=== PATIENT | male | born 1935 | race Caucasian/White ===

== ENCOUNTER → 2017-11-02 07:03 | Outpatient (CLI) | payer MEDICARE, BC, SELFPAY ==
[2017-10-15 09:03] VITALS: BP 134/70; BMI 30.5
--- NOTE | 2017-11-02 07:05 | ECHOD_ITS ---
Reason For Study: AFIB Procedure This was a 2D Doppler, Color Flow transthoracic echocardiogram. The exam was of fair technical quality due to body habitus. Exam performed in department. Left Ventricle Normal LV size. Moderate concentric left ventricular hypertrophy. Left ventricular systolic function is normal. The estimated ejection fraction is 65 %. Unable to assess diastolic dysfunction. No regional wall motion abnormalities noted. Right Ventricle Normal RV size. Normal systolic function. Atria The left atrium is mildly enlarged. The right atrium is mildly enlarged. No doppler evidence for ASD. Mitral Valve There is no mitral annular calcification. Normal mitral valve. Mild (1+) mitral valve insufficiency. Tricuspid Valve Normal tricuspid valve. Mild tricuspid valve insufficiency. Right ventricular systolic pressure estimated to be 33 mmHg. Aortic Valve Trisinus/trileaflet aortic valve. Normal aortic valve. Pulmonic Valve The pulmonic valve is not well visualized. Great Vessels Normal sized aortic root. Pericardium/Pleural No pericardial effusion. MMode/2D Measurements & Calculations LVIDd: 4.2 cm IVSd: 1.3 cm LVOT diam: 2.0 cm LVIDs: 2.9 cm LVPWd: 1.4 cm LVOT area: 3.1 cm2 FS: 31.7 % Ao root diam: 3.6 cm LAV(MOD-bp): 55.9 ml EDV(MOD-sp4): 85.9 ml LA dimension: 4.4 cm LAV(MOD-bp) Indexed: 27.3 ml/m2 ESV(MOD-sp4): 38.1 ml LAV(MOD-sp2): 51.3 ml EF(MOD-sp4): 55.6 % LAV(MOD-sp4): 55.1 ml EDV(MOD-sp2): 65.6 ml SV(MOD-sp4): 47.8 ml SV(MOD-sp2): 42.7 ml EF(MOD-sp2): 65.1 % LA A4 area: 20.4 cm2 RA A4 area: 19.5 cm2 Doppler Measurements & Calculations MV E max scarlett: 97.7 cm/sec Ao V2 max: 87.8 cm/sec LV V1 max: 84.2 cm/sec Ao max P.1 mmHg LV V1 max P.8 mmHg PRADIP(V,D): 2.9 cm2 TR max scarlett: 275.7 cm/sec TR max P.4 mmHg Interpretation Summary Left ventricular systolic function is normal. The estimated ejection fraction is 65 %. Moderate concentric left ventricular hypertrophy. The left atrium is mildly enlarged. The right atrium is mildly enlarged. Mild (1+) mitral valve insufficiency. Mild tricuspid valve insufficiency. Right ventricular systolic pressure estimated to be 33 mmHg. Unable to assess diastolic dysfunction. Ordering Physician: Lev Perez Referring Physician: STIVEN DAVIS Performed By: Rosaura Zhao RDCS, RVT
--- NOTE | 2017-11-02 14:04 | STRESSREP ---
Stress Test Report : 11/02/2017 Procedure: Pharmacologic stress nuclear imaging study Indications: Shortness of breath/dyspnea Consent: Per the patient Procedure: The patient underwent pharmacologic (Regadenoson) evaluation with a peak heart rate of 99 bpm (71% predicted maximal heart rate) with a peak blood pressure 160/82 mmHg. The baseline ECG demonstrated atrial fibrillation. The peak pharmacologic ECG demonstrated no obvious ECG changes. There were no obvious additional cardiac dysrhythmias pretest, during pharmacologic infusion, or recovery. There was no report of chest discomfort during pharmacologic infusion or recovery. The examination was discontinued secondary to completion of protocol. Impression: 1. Pharmacologic (Regadenoson) evaluation 2. Peak pharmacologic ECG with no obvious ECG changes 3. Nuclear images pending Myocardial perfusion imaging study: Technique: The patient was injected with 10.8 mCi of technetium 99m Cardiolite and subsequently rest SPECT Cardiolite nuclear imaging was obtained in the horizontal long, vertical long, and short axis views. The patient underwent pharmacologic (Regadenoson) evaluation with a peak heart rate of 99 bpm (71% predicted maximal heart rate) with a peak blood pressure 160/82 mmHg. The patient was injected with 34.0 mCi of technetium 99m Cardiolite and subsequently stress SPECT Cardiolite nuclear imaging was obtained in the horizontal long, vertical long, and short axis views. A gated Cardiolite study at peak stress was obtained. Interpretation: Rest and stress SPECT Cardiolite nuclear imaging status post realignment, normalization, and attenuation correction demonstrates the appearance of relative uniform tracer uptake and myocardial perfusion appearing within normal limits. There is end systolic thickening and brightening. The gated Cardiolite study demonstrates myocardial thickening and inward wall motion. The reported LVEF is 76%. Impression: 1. Rest and stress SPECT Cardiolite nuclear imaging demonstrating relative uniform tracer uptake and myocardial perfusion appearing within normal limits. 2. The gated Cardiolite study reports an LVEF of 76%. This note was generated with [employer] software. It may contain incorrect words, spelling, and punctuation that were not noted in checking the note before signing.
--- NOTE | 2017-11-02 14:14 | STRESSREP_ITS ---
Stress Test Report : 11/02/2017 Procedure: Pharmacologic stress nuclear imaging study Indications: Shortness of breath/dyspnea Consent: Per the patient Procedure: The patient underwent pharmacologic (Regadenoson) evaluation with a peak heart rate of 99 bpm (71% predicted maximal heart rate) with a peak blood pressure 160 /82 mmHg. The baseline ECG demonstrated atrial fibrillation. The peak pharmacologic ECG demonstrated no obvious ECG changes. There were no obvious additional cardiac dysrhythmias pretest, during pharmacologic infusion, or recovery. There was no report of chest discomfort during pharmacologic infusion or recovery. The examination was discontinued secondary to completion of protocol. Impression: 1. Pharmacologic (Regadenoson) evaluation 2. Peak pharmacologic ECG with no obvious ECG changes 3. Nuclear images pending Myocardial perfusion imaging study: Technique: The patient was injected with 10.8 mCi of technetium 99m Cardiolite and subsequently rest SPECT Cardiolite nuclear imaging was obtained in the horizontal long, vertical long, and short axis views. The patient underwent pharmacologic (Regadenoson) evaluation with a peak heart rate of 99 bpm (71% predicted maximal heart rate) with a peak blood pressure 160/82 mmHg. The patient was injected with 34.0 mCi of technetium 99m Cardiolite and subsequently stress SPECT Cardiolite nuclear imaging was obtained in the horizontal long, vertical long, and short axis views. A gated Cardiolite study at peak stress was obtained. Interpretation: Rest and stress SPECT Cardiolite nuclear imaging status post realignment, normalization, and attenuation correction demonstrates the appearance of relative uniform tracer uptake and myocardial perfusion appearing within normal limits. There is end systolic thickening and brightening. The gated Cardiolite study demonstrates myocardial thickening and inward wall motion. The reported LVEF is 76%. Impression: 1. Rest and stress SPECT Cardiolite nuclear imaging demonstrating relative uniform tracer uptake and myocardial perfusion appearing within normal limits. 2. The gated Cardiolite study reports an LVEF of 76%. This note was generated with [employer] software. It may contain incorrect words, spelling, and punctuation that were not noted in checking the note before signing.
== END ==
PROVIDERS: Family Provider Family Medicine; PCP Family Medicine; Visit Provider Internal Medicine Cardiovascular Disease
DX: I48.1 Persistent atrial fibrillation (principal); R06.02 Shortness of breath; R42 Dizziness and giddiness
CPT/HCPCS: 78452; 93017; 93306; A9500; A4216; J2785

== ENCOUNTER 2018-06-12 09:18 | Emergency (ER) | payer MEDICARE, BC, SELFPAY ==
[2018-06-12 09:19] VITALS: BP 144/95; PULSE 102; RESP 18; TEMP 36.2; O2SAT 99; BMI 28.8
--- NOTE | 2018-06-12 09:30 | CT_ITS ---
STUDY: CT ABDOMEN AND PELVIS WITH CONTRAST REASON FOR EXAM: Male, 82 years old. Diffuse abdominal pain with history of bladder cancer. RADIATION DOSAGE (If Supplied By Facility): CTDIvol = ( 18.92 ) mGy, DLP = ( 2199.38 ) mGycm TECHNIQUE: Transaxial images were obtained from the dome of the diaphragm to the symphysis pubis without oral contrast. 100 ml of Isovue 300 contrast was administered. Sagittal and coronal images were reconstructed. Individualized dose optimization techniques were used for this CT. COMPARISON: None. FINDINGS: The visualized lung bases are unremarkable. The visualized portions of the heart are within normal limits. Normal liver. Normal gallbladder and extrahepatic biliary system. Normal spleen. Normal pancreas. Near the distal splenic vein in the confluence of the main portal vein is a hypodense clot extending inferiorly through the inferior mesenteric vein toward the right quadrant as seen on axial series 2 image 36 consistent with acute inferior mesenteric vein thrombus. There is associated right quadrant areas of small bowel dilatation and wall thickening concerning for ischemia. There is mild inflammatory stranding surrounding the inferior mesenteric vein. There is a right adrenal enhancing lesion with Hounsfield units of 72 with no significant change from before September 2016 exam. Chronic appearing bilateral renal stranding is present. Right simple appearing interpolar renal cyst is noted measuring 1.6 cm with additional small left anterior exophytic cyst subcentimeter in size. Facet Normal visualized stomach. Right quadrant small bowel thickening and surrounding inflammation as described above. Normal colon. The appendix is visualized and appears normal. Normal abdominal aorta. Normal inferior vena cava. Normal retroperitoneum. Normal urinary bladder. There is enlargement of the prostate gland. Normal abdominal wall. There are diffuse degenerative changes of the visualized lumbar spine. CT/Abdomen/Pelvis W IV Cont ONLY IMPRESSION: 1. Findings consistent with diffuse thrombus within the inferior mesenteric vein and associated wall thickening and inflammation of the right quadrant bowel consistent with sequela of ischemia. 2. Stable appearance of ill-defined right adrenal lesion compared to 16 September 2016. Further characterization may be obtained with MRI in and out of phase imaging. Underlying adrenal lesion cannot be excluded. Electronically Signed: Renzo Franco DO at 11:09 EDT , Service support ,
--- NOTE | 2018-06-12 09:32 | ED.VISSUMM ---
- ER Visit Summary Date of Service: 06/12/18 Chief Complaint: Abdominal pain History of Present Illness: The patient is a 82 M history of A. fib and BPH. Patient is never had any abdominal surgery. He once had since [facility] for bladder cancer. States last week he has had abdominal pain it has gotten worse in the last 24-48 hours. Having nausea and vomiting today. He denies any diarrhea or melena. He denies any constipation. He denies any dysuria. He denies any abdominal trauma. States he had a low-grade fever of like 99.8 over the last several days. Denies any chest pain or cough. Physical Examination: Elderly male no acute distress. Vital signs are stable afebrile. He does not look septic or toxic. He does not look severely dehydrated. He is accompanied by his . H EENT exam is unremarkable. Neck nontender. Lungs clear to auscultation bilaterally. Heart irregularly irregular rate about 102 no murmur. Abdomen appears distended but he and his state that this is normal abdomen. He is diffusely tender. There are not peritoneal signs. I do not see any obvious hernias or masses. I do not feel any pulsatile mass. He has bowel sounds but they seem to be diminished. Moving all 4 extremities. Calves nontender. Neurologically is awake and alert with no focal motor deficits. Test Results: CBC normal with a white count of 10. Hemoglobin 15. Electrolytes unremarkable. Gap at 9. Creatinine 1. Blood sugar 253. Liver enzymes normal. Lipase normal. UA normal except for glucose. Lactic acid normal 1.6. EKG A. fib with RVR rate of 116. Patient CT abdomen and pelvis with IV contrast only shows mesenteric ischemia with diffuse thrombus in the mesenteric vein. Wall thickening and inflammation of the right lower quadrant small bowel. This is involving the inferior mesenteric vein. The appendix was seen and was normal. Emergency Department Course and Treatment: Abdominal pain. Will be treated with a liter of normal saline and IV Zofran. CT of the abdomen and pelvis will be obtained with IV contrast only and screening labs. Treatment Plan: I spoke to our general surgeon on-call. He reviewed the CAT scan he and I discussed the patient's care. Patient be transferred and I spoke to he and his and they prefer to [facility]. I spoke to the transfer line I spoke to both the general surgeon on-call Dr. Brar and Also the Hospitalist Dr. Walls. Hospitalist and I discussed anticoagulation and patient will be started on heparin bolus and drip. 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 fib This note was generated with [employer] dictation software. It may contain incorrect words, spelling, and punctuation that were not noted in review of the chart prior to signing ED Disposition - Plan for ED Patient: Chief Complaint: Abd Pain Referrals: Noam Monroy MD [Primary Care Provider] -
--- NOTE | 2018-06-12 09:35 | ED.DCSUM_ITS ---
- ER Visit Summary Date of Service: 06/12/18 Chief Complaint: Abdominal pain History of Present Illness: The patient is a 82 M history of A. fib and BPH. Patient is never had any abdominal surgery. He once had since [facility] for bladder cancer. States last week he has had abdominal pain it has gotten worse in the last 24-48 hours. Having nausea and vomiting today. He denies any diarrhea or melena. He denies any constipation. He denies any dysuria. He denies any abdominal trauma. States he had a low-grade fever of like 99.8 over the last several days. Denies any chest pain or cough. Physical Examination: Elderly male no acute distress. Vital signs are stable afebrile. He does not look septic or toxic. He does not look severely dehydrated. He is accompanied by his . H EENT exam is unremarkable. Neck nontender. Lungs clear to auscultation bilaterally. Heart irregularly irregular rate about 102 no murmur. Abdomen appears distended but he and his state that this is normal abdomen. He is diffusely tender. There are not peritoneal signs. I do not see any obvious hernias or masses. I do not feel any pulsatile mass. He has bowel sounds but they seem to be diminished. Moving all 4 extremities. Calves nontender. Neurologically is awake and alert with no focal motor deficits. Test Results: CBC normal with a white count of 10. Hemoglobin 15. Electrolytes unremarkable. Gap at 9. Creatinine 1. Blood sugar 253. Liver enzymes normal. Lipase normal. UA normal except for glucose. Lactic acid normal 1.6. EKG A. fib with RVR rate of 116. Patient CT abdomen and pelvis with IV contrast only shows mesenteric ischemia with diffuse thrombus in the mesenteric vein. Wall thickening and inflammation of the right lower quadrant small bowel. This is involving the inferior mesenteric vein. The appendix was seen and was normal. Emergency Department Course and Treatment: Abdominal pain. Will be treated with a liter of normal saline and IV Zofran. CT of the abdomen and pelvis will be obtained with IV contrast only and screening labs. Treatment Plan: I spoke to our general surgeon on-call. He reviewed the CAT scan he and I discussed the patient's care. Patient be transferred and I spoke to he and his and they prefer to [facility]. I spoke to the transfer line I spoke to both the general surgeon on-call Dr. Brar and Also the spitalist Dr. Walls. Hospitalist and I discussed anticoagulation and patient will be started on heparin bolus and drip. 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 fib This note was generated with [employer] dictation software. It may contain incorrect words, spelling, and punctuation that were not noted in review of the chart prior to signing ED Disposition - Plan for ED Patient: Chief Complaint: Abd Pain Referrals: Noam Monroy MD [Primary Care Provider] -
[2018-06-12] MEDS: 0.9% Normal Saline 1,000 ML 1000 ML IV (09:55)
[2018-06-12] MEDS: Ondansetron 4 MG/2 ML Vial IV (09:55)
[2018-06-12 10:00] LABS: Bacteria 0 SEEN /hpf (None Seen); Mucous, Urine 0 SEEN /hpf (<or=2+); Red Blood Cells-Urine 0 SEEN /hpf (0-5); Squamous Epithelial Cells - UA 0 SEEN /hpf (0-5); White Blood Cells 0 SEEN /hpf (0-5)
[2018-06-12 10:04] LABS: Absolute Lymphocyte Count 1.15 X10^3/ul (0.83-4.51); Absolute Neutrophil Count 9.3 X10^3/uL (2.0-7.7); Basophil# 0.01 X10^3/uL; Basophil% 0.1 % (0-1); Eosinophil# 0.01 X10^3/uL; Eosinophils% 0.1 % (0-5); Hematocrit 44.2 % (40-54); Hemoglobin 15.2 g/dl (13.0-16.5); Lymphocyte # 1.15 X10^3/ul (4.0); Lymphocyte % 10.8 % (19-41); Mean Corp Hgb Conc 34.4 g/gl (32-36); Mean Corpuscular Hgb 31.1 pg (27.0-32.0); Mean Corpuscular Volume 90.4 fL (80-94); Mean Platelet Vol. 10.7 fl (6.2-12.0); Monocyte% 1.9 % (0-10); Platelet Count 199 K/mm3 (150-450); RBC Distribution Width CV 12.5 % (11.6-14.6); RBC Distribution Width SD 41.2 fl (35.1-43.9); Red Blood Count 4.89 M/mm3 (4.6-6.2); White Blood Count 10.7 K/mm3 (4.4-11.0)
[2018-06-12 10:05] LABS: POSITIVE COUNT NO; POSITIVE DIFFERENTIAL NO; POSITIVE MORPHOLOGY NO
[2018-06-12 10:07] LABS: Color, Urine Yellow (Yellow); Glucose, Dipstick 1000 mg/dl (Normal); Leukocyte Esterase-Dipstick Negative /ul (Negative); Nitrite-Dipstick Negative (Negative); Occult Blood-Urine 50 /ul (Negative); Protein-Dipstick 100 mg/dl (Negative); Urine Bilirubin Dipstick Negative (Negative); Urine Clarity Clear (Clear); Urine Urobilinogen Normal (Normal)
[2018-06-12 10:08] LABS: Ketone-Dipstick 150 mg/dl (Negative)
[2018-06-12 10:09] VITALS: BP 137/86; PULSE 98; RESP 15; O2SAT 95
[2018-06-12 10:17] LABS: AST(SGOT) 22 U/L (15-37); Alanine Aminotransfer ALT/SGPT 48 U/L (16-61); Albumin, Serum 3.3 g/dL (3.2-5.0); Alkaline Phosphatase 73 U/L (45-117); Anion Gap 9 (5-15); BUN 18 mg/dL (7-18); BUN/Creat Ratio 16.5 RATIO (10-20); Bilirubin, Direct 0.27 mg/dL (0.00-0.30); Calcium,Total 9.1 mg/dL (8.5-10.1); Chloride 101 mmol/L (98-107); Creatinine, Serum 1.09 mg/dL (0.70-1.30); EST Glomerular Filtration Rate 69 mL/min (>60); Est Glom Filt Rate - Afr Amer 83 mL/min (>60); Estimated Creatinine Clearance 50.55 ml/min; Globulin 4.6 g/dL (2.2-4.2); Glucose 253 mg/dL (74-106); Lipase 71 U/L (73-393); Potassium 4.3 mmol/L (3.5-5.1); Protein, Total 7.9 g/dL (6.4-8.2); Sodium Level 135 mmol/L (136-145)
--- NOTE | 2018-06-12 10:19 | ED.RN ---
REPRODUCEABLE PAIN TO RIGHT ID ABD WITH PALPATION.
[2018-06-12 10:27] LABS: Lactic Acid 1.6 mmol/L (0.4-2.0)
[2018-06-12] MEDS: Morphine 4 MG/ML Syringe IV (11:03)
[2018-06-12 11:38] VITALS: BP 153/90; PULSE 117; RESP 22; O2SAT 96
--- NOTE | 2018-06-12 12:03 | EKG12_ITS ---
Test Reason : ABDOMINAL PAIN Blood Pressure : / mmHG Vent. Rate : 116 BPM Atrial Rate : 133 BPM P-R Int : 000 ms QRS Dur : 086 ms QT Int : 334 ms P-R-T Axes : 000 000 -40 degrees QTc Int : 464 ms Atrial fibrillation with rapid ventricular response Nonspecific ST and T wave abnormality Abnormal ECG Confirmed by CL AGUILAR, KAMRYN ([id number]), international editorial producer JORDY PETERSON ([id number]) on 06/14/2018 2:44:46 PM Referred By: VINCENT Confirmed By:KAMRYN SMALLWOOD MD
[2018-06-12 12:05] LABS: Prothrombin Time (Protime)PT. 13.6 SECONDS (11.7-14.9)
[2018-06-12] MEDS: Heparin Injection (Vial) 5,000 UNIT/ML VIAL 6000 UNIT IV (12:26)
[2018-06-12] MEDS: HEPARIN/D5w 25,000 UNITS 25,000 UNITS/250 ML IV.SOLN. 12 UNITS IV (12:27)
[2018-06-12 12:30] VITALS: BP 140/81; PULSE 101; RESP 20; O2SAT 93
[2018-06-12 13:15] VITALS: BP 150/96; PULSE 104; RESP 19; O2SAT 94
== END 2018-06-12 13:18 | disposition short-term general hospital (02) ==
LOC: ED 10:09
PROVIDERS: Emergency Provider Emergency Medicine; Family Provider Family Medicine; PCP Family Medicine
DX: R10.9 Unspecified abdominal pain (principal); R11.2 Nausea with vomiting, unspecified; I81 Portal vein thrombosis; I48.2 Chronic atrial fibrillation; I99.8 Other disorder of circulatory system; N40.0 Benign prostatic hyperplasia without lower urinary tract symptoms; Z85.51 Personal history of malignant neoplasm of bladder
CPT/HCPCS: 74177; 80048; 80076; 81001; 83605; 83690; 85025; 85610; 85730; 93005; 99284; J7030; Q9967; A4216; J2405

== ENCOUNTER → 2018-06-20 07:10 | Outpatient (CLI) | payer MEDICARE, BC, SELFPAY ==
[2018-06-20 08:31] LABS: International Normalized Ratio 1.4; Prothrombin Time (Protime)PT. 17.5 SECONDS (11.7-14.9)
== END ==
PROVIDERS: Family Provider Family Medicine; PCP Family Medicine
DX: I48.91 Unspecified atrial fibrillation (principal); I81 Portal vein thrombosis
CPT/HCPCS: 36415; 85610

== ENCOUNTER → 2018-06-23 14:09 | Outpatient (CLI) | payer MEDICARE, BC, SELFPAY ==
[2018-06-23 15:39] LABS: Absolute Lymphocyte Count 1.28 X10^3/ul (0.83-4.51); Absolute Neutrophil Count 10.3 X10^3/uL (2.0-7.7); Basophil# 0.02 X10^3/uL; Basophil% 0.2 % (0-1); Eosinophil# 0.05 X10^3/uL; Eosinophils% 0.4 % (0-5); Hematocrit 36.4 % (40-54); Hemoglobin 12.2 g/dl (13.0-16.5); Lymphocyte # 1.28 X10^3/ul (4.0); Mean Corp Hgb Conc 33.5 g/gl (32-36); Mean Corpuscular Hgb 31.1 pg (27.0-32.0); Mean Corpuscular Volume 92.9 fL (80-94); Mean Platelet Vol. 11.7 fl (6.2-12.0); Monocyte# 1.08 X10^3/uL; Monocyte% 8.5 % (0-10); Neutrophil # 10.29 X10^3/uL (2.7-7.7); Neutrophil % 80.7 % (47-70); Platelet Count 287 K/mm3 (150-450); RBC Distribution Width CV 13.2 % (11.6-14.6); RBC Distribution Width SD 43.7 fl (35.1-43.9); Red Blood Count 3.92 M/mm3 (4.6-6.2); White Blood Count 12.8 K/mm3 (4.4-11.0)
[2018-06-23 15:41] LABS: POSITIVE COUNT NO; POSITIVE DIFFERENTIAL NO; POSITIVE MORPHOLOGY NO
[2018-06-23 16:12] LABS: Vitamin B12 426 pg/mL (211-911); Vitamin D,25 Hydroxy 14.8 ng/mL (29.95-100.01)
[2018-06-23 16:16] LABS: ALB/GLOB Ratio 0.6 RATIO (0.9-2.4); AST(SGOT) 24 U/L (15-37); Alanine Aminotransfer ALT/SGPT 51 U/L (16-61); Albumin, Serum 2.7 g/dL (3.2-5.0); Alkaline Phosphatase 79 U/L (45-117); Anion Gap 8 (5-15); BUN 15 mg/dL (7-18); BUN/Creat Ratio 17.6 RATIO (10-20); Calcium,Total 8.7 mg/dL (8.5-10.1); Chloride 102 mmol/L (98-107); Cholesterol 178 mg/dL (200); Creatinine, Serum 0.85 mg/dL (0.70-1.30); EST Glomerular Filtration Rate 92 mL/min (>60); Est Glom Filt Rate - Afr Amer 111 mL/min (>60); Globulin 4.2 g/dL (2.2-4.2); Glucose 137 mg/dL (74-106); High Density Lipoprotein 34 mg/dL; Potassium 3.9 mmol/L (3.5-5.1); Protein, Total 6.9 g/dL (6.4-8.2); Sodium Level 136 mmol/L (136-145); Triglycerides 153 mg/dL; Very Low Density Lipoprotein 31 mg/dL (5-40)
[2018-06-23 16:18] LABS: Erythrocyte Sedimentation Rate 71 mm/hr (0-20)
== END ==
PROVIDERS: Family Provider Family Medicine; PCP Family Medicine; Visit Provider Family Medicine
DX: R73.01 Impaired fasting glucose (principal); K55.059 Acute (reversible) ischemia of intestine, part and extent unspecified; R41.3 Other amnesia; E11.9 Type 2 diabetes mellitus without complications
CPT/HCPCS: 36415; 80053; 80061; 82306; 82607; 84443; 85025; 85652

== ENCOUNTER → 2018-06-27 12:45 | Outpatient (CLI) | payer MEDICARE, BC, SELFPAY ==
[2018-06-27 13:45] LABS: International Normalized Ratio 2.1; Prothrombin Time (Protime)PT. 23.2 SECONDS (11.7-14.9)
== END ==
PROVIDERS: Family Provider Family Medicine; PCP Family Medicine; Referring Provider Internal Medicine Cardiovascular Disease; Visit Provider Internal Medicine Cardiovascular Disease
DX: I48.1 Persistent atrial fibrillation (principal); Z79.01 Long term (current) use of anticoagulants
CPT/HCPCS: 36415; 85610

== ENCOUNTER 2018-07-04 13:32 | Outpatient (RCR) | payer MEDICARE, BC, SELFPAY ==
[2018-07-04 17:36] LABS: International Normalized Ratio 2.6; Prothrombin Time (Protime)PT. 27.9 SECONDS (11.7-14.9)
== END 2018-07-04 15:00 | disposition home or self-care (01) ==
LOC: LAB 13:32
PROVIDERS: Family Provider Family Medicine; PCP Family Medicine; Referring Provider Internal Medicine Cardiovascular Disease; Visit Provider Internal Medicine Cardiovascular Disease
DX: I48.1 Persistent atrial fibrillation (principal); Z79.01 Long term (current) use of anticoagulants
CPT/HCPCS: 36415; 85610

== ENCOUNTER → 2018-07-11 18:54 | Outpatient (CLI) | payer MEDICARE, BC, SELFPAY ==
--- NOTE | 2018-07-11 | FLU_PTH ---
PATIENT: SORAIDA PERES LOC: [facility] U#:[id number] AGE/SX: 89/M ROOM: RE07/11/[address]: Dr. Aram Haro MD : 1935 BED: DIS: SPEC #: [id number] RECD: 07/11/18 09:23 STATUS: JOSÉ MIGUEL MALINA #: [id number] ALICE: 07/11/18 00:[address]: Aram Haro DEPT: CYTOLOGY RECD BY: Amanda Winslow ENTERED: 07/13/18 09:43 SP TYPE: Fluid OTHR DR: Dr. Puneet Monroy MD Tissues: Urine Procedures: Pap Stain (control) Special Stain Group II Surgery Specimen Level IV Cytospin Fluid HEADER OPERATION: Not noted PRE-OP DIAGNOSIS: Bladder cancer TISSUE SUBMITTED: Urine for cytology DIAGNOSIS CYTOLOGY Urine for cytology (cytospin): Negative for malignant cells. AM:veda 07/14/18 CYTOLOGY STUDY Slides are reviewed. CYTOLOGY GROSS Received is 30 ml of hazy yellow fluid labeled with the patient's name and and designated per the requisition as urine. Submitted for cytology. /MARIA:ricky 07/13/18 TC:5 CPT: 89852
[2018-07-11 18:56] LABS: Cytology, Body Fluid / CSF SEE PATHOLOGY REPORT
== END ==
PROVIDERS: Family Provider Family Medicine; PCP Family Medicine; Visit Provider Urology
DX: C67.9 Malignant neoplasm of bladder, unspecified (principal)
CPT/HCPCS: 88108; 88305; 88313

== ENCOUNTER → 2018-07-13 14:51 | Outpatient (CLI) | payer MEDICARE, BC, SELFPAY ==
[2018-07-13 17:29] LABS: Absolute Lymphocyte Count 1.67 X10^3/ul (0.83-4.51); Absolute Neutrophil Count 4.1 X10^3/uL (2.0-7.7); Basophil# 0.03 X10^3/uL; Basophil% 0.5 % (0-1); Eosinophil# 0.17 X10^3/uL; Eosinophils% 2.6 % (0-5); Hematocrit 39.7 % (40-54); Hemoglobin 13.2 g/dl (13.0-16.5); Lymphocyte # 1.67 X10^3/ul (4.0); Lymphocyte % 25.1 % (19-41); Mean Corp Hgb Conc 33.2 g/gl (32-36); Mean Corpuscular Hgb 30.8 pg (27.0-32.0); Mean Corpuscular Volume 92.5 fL (80-94); Mean Platelet Vol. 11.2 fl (6.2-12.0); Monocyte# 0.66 X10^3/uL; Monocyte% 9.9 % (0-10); Neutrophil # 4.08 X10^3/uL (2.7-7.7); Neutrophil % 61.3 % (47-70); Platelet Count 207 K/mm3 (150-450); RBC Distribution Width CV 13.6 % (11.6-14.6); Red Blood Count 4.29 M/mm3 (4.6-6.2); White Blood Count 6.7 K/mm3 (4.4-11.0)
[2018-07-13 17:31] LABS: POSITIVE COUNT NO; POSITIVE DIFFERENTIAL NO; POSITIVE MORPHOLOGY NO
[2018-07-13 17:45] LABS: ALB/GLOB Ratio 0.9 RATIO (0.9-2.4); AST(SGOT) 26 U/L (15-37); Alanine Aminotransfer ALT/SGPT 56 U/L (16-61); Albumin, Serum 3.4 g/dL (3.2-5.0); Alkaline Phosphatase 72 U/L (45-117); Anion Gap 8 (5-15); BUN 14 mg/dL (7-18); BUN/Creat Ratio 15.5 RATIO (10-20); Calcium,Total 8.9 mg/dL (8.5-10.1); Chloride 105 mmol/L (98-107); EST Glomerular Filtration Rate 85 mL/min (>60); Est Glom Filt Rate - Afr Amer 103 mL/min (>60); Globulin 3.8 g/dL (2.2-4.2); Glucose 64 mg/dL (74-106); Potassium 4.1 mmol/L (3.5-5.1); Protein, Total 7.2 g/dL (6.4-8.2); Sodium Level 140 mmol/L (136-145); Thyroid Stim Hormone (TSH) 2.05 uIU/mL (0.358-3.74); Vitamin D,25 Hydroxy 21.3 ng/mL (29.95-100.01)
== END ==
PROVIDERS: Visit Provider Family Medicine Geriatric Medicine
DX: E11.9 Type 2 diabetes mellitus without complications (principal); E55.9 Vitamin D deficiency, unspecified
CPT/HCPCS: 36415; 80053; 82306; 84443; 85025

== ENCOUNTER 2018-08-08 10:09 | Outpatient (RCR) | payer MEDICARE, BC, SELFPAY ==
[2018-07-18 10:00] LABS: International Normalized Ratio 1.7; Prothrombin Time (Protime)PT. 20.3 SECONDS (11.7-14.9)
[2018-07-25 11:26] LABS: International Normalized Ratio 1.8
[2018-08-08 11:27] LABS: International Normalized Ratio 2.2; Prothrombin Time (Protime)PT. 24.3 SECONDS (11.7-14.9)
== END 2018-08-12 09:35 | disposition home or self-care (01) ==
LOC: LAB 10:09
PROVIDERS: Family Provider Family Medicine; PCP Family Medicine; Referring Provider Internal Medicine Cardiovascular Disease; Visit Provider Internal Medicine Cardiovascular Disease
DX: I48.1 Persistent atrial fibrillation (principal); Z79.01 Long term (current) use of anticoagulants
CPT/HCPCS: 36415; 85610

== ENCOUNTER 2018-08-22 10:31 | Outpatient (RCR) | payer MEDICARE, BC, SELFPAY ==
[2018-08-15 09:36] VITALS: BMI 30.5
[2018-08-22 11:45] LABS: International Normalized Ratio 1.8; Prothrombin Time (Protime)PT. 20.8 SECONDS (11.7-14.9)
== END 2018-08-22 11:00 | disposition home or self-care (01) ==
LOC: LAB 10:31
PROVIDERS: Family Provider Family Medicine Geriatric Medicine; PCP Family Medicine Geriatric Medicine; Referring Provider Internal Medicine Cardiovascular Disease; Visit Provider Internal Medicine Cardiovascular Disease
DX: I48.1 Persistent atrial fibrillation (principal); Z79.01 Long term (current) use of anticoagulants
CPT/HCPCS: 36415; 85610

== ENCOUNTER 2018-10-06 10:17 | Outpatient (RCR) | payer MEDICARE, BC, SELFPAY ==
[2018-08-15 09:36] VITALS: BMI 30.5
[2018-09-15 11:07] LABS: International Normalized Ratio 2.1; Prothrombin Time (Protime)PT. 23.8 SECONDS (11.7-14.9)
[2018-10-06 11:46] LABS: International Normalized Ratio 2.3; Prothrombin Time (Protime)PT. 25.8 SECONDS (11.7-14.9)
== END 2018-10-06 11:00 | disposition home or self-care (01) ==
LOC: LAB 10:17
PROVIDERS: Family Provider Family Medicine Geriatric Medicine; PCP Family Medicine Geriatric Medicine; Referring Provider Internal Medicine Cardiovascular Disease; Visit Provider Internal Medicine Cardiovascular Disease
DX: I48.1 Persistent atrial fibrillation (principal); Z79.01 Long term (current) use of anticoagulants
CPT/HCPCS: 36415; 85610

== ENCOUNTER → 2018-10-10 15:27 | Outpatient (CLI) | payer MEDICARE, BC, SELFPAY ==
[2018-08-15 09:36] VITALS: BMI 30.5
== END ==
PROVIDERS: Family Provider Family Medicine Geriatric Medicine; PCP Family Medicine Geriatric Medicine; Referring Provider Otolaryngology; Visit Provider Otolaryngology
DX: H92.10 Otorrhea, unspecified ear (principal)
CPT/HCPCS: 87070; 87075; 87077; 87186; 87205

== ENCOUNTER 2018-11-17 09:58 | Outpatient (RCR) | payer MEDICARE, BC, SELFPAY ==
[2018-08-15 09:36] VITALS: BMI 30.5
[2018-10-26 12:59] VITALS: BMI 29.6
[2018-11-17 10:38] LABS: International Normalized Ratio 2.4; Prothrombin Time (Protime)PT. 26.5 SECONDS (11.7-14.9)
== END 2018-11-17 10:58 | disposition home or self-care (01) ==
LOC: LAB 09:58
PROVIDERS: Family Provider Family Medicine Geriatric Medicine; PCP Family Medicine Geriatric Medicine; Referring Provider Internal Medicine Cardiovascular Disease; Visit Provider Internal Medicine Cardiovascular Disease
DX: I48.1 Persistent atrial fibrillation (principal); Z79.01 Long term (current) use of anticoagulants
CPT/HCPCS: 36415; 85610

== ENCOUNTER 2018-12-20 09:07 | Outpatient (RCR) | payer MEDICARE, BC, SELFPAY ==
[2018-10-26 12:59] VITALS: BMI 29.6
[2018-12-20 10:04] LABS: International Normalized Ratio 2.2; Prothrombin Time (Protime)PT. 24.6 SECONDS (11.7-14.9)
== END 2019-01-10 16:00 | disposition home or self-care (01) ==
LOC: LAB 09:07
PROVIDERS: Referring Provider Internal Medicine Cardiovascular Disease; Visit Provider Internal Medicine Cardiovascular Disease
DX: I48.1 Persistent atrial fibrillation (principal); Z79.01 Long term (current) use of anticoagulants
CPT/HCPCS: 36415; 85610

== ENCOUNTER → 2019-01-09 17:28 | Outpatient (CLI) | payer MEDICARE, BC, SELFPAY ==
[2018-10-26 12:59] VITALS: BMI 29.6
--- NOTE | 2019-01-09 | CYSPIN_PTH ---
PATIENT: SORAIDA PERES LOC: [facility] U#:[id number] AGE/SX: 89/M ROOM: RE01/09/[address]: Dr. Aram Haro MD : 1935 BED: DIS: SPEC #: [id number] RECD: 01/09/19 12:06 STATUS: JOSÉ MIGUEL MALINA #: [id number] ALICE: 01/09/19 00:[address]: Aram Haro DEPT: CYTOLOGY RECD BY: Senthil Aquino ENTERED: 01/10/19 12:06 SP TYPE: CYSPIN FL OTHR DR: Dr. Nataliia Lim MD Tissues: Urine Procedures: Pap Stain (control) Special Stain Group II Cytospin Fluid HEADER OPERATION: Not noted PRE-OP DIAGNOSIS: Bladder CA C67.2 TISSUE SUBMITTED: Urine for cytology DIAGNOSIS CYTOLOGY Urine for cytology (cytospin): Rare atypical urothelial cells noted. SJ:veda 01/11/19 COMMENT Clinical correlation and appropriate follow up are necessary. Please make reference to previous specimen ([id number]) bladder tumor, TUR with diagnosis of papillary urothelial carcinoma and cytology specimens ([id number]) urine for cytology with diagnosis of malignant cells present derived from urothelial carcinoma and ([id number]) urine for cytology with diagnosis of a few atypical urothelial cells noted and ([id number]) urine for cytology with diagnosis of negative for malignant cells. CYTOLOGY STUDY Slides are reviewed. CYTOLOGY GROSS Received is 30 ml of clear yellow fluid labeled with the patient's name and and designated per the requisition as urine. Submitted for cytology preparation. / 01/10/19 TC:5 CPT: 68280
[2019-01-09 17:29] LABS: Cytology, Body Fluid / CSF SEE PATHOLOGY REPORT
== END ==
PROVIDERS: Family Provider Family Medicine; PCP Family Medicine; Referring Provider Urology; Visit Provider Urology
DX: C67.2 Malignant neoplasm of lateral wall of bladder (principal)
CPT/HCPCS: 88108; 88313

== ENCOUNTER 2019-01-24 09:45 | Outpatient (RCR) | payer MEDICARE, BC, SELFPAY ==
[2018-10-26 12:59] VITALS: BMI 29.6
[2019-01-24 10:46] LABS: International Normalized Ratio 1.9; Prothrombin Time (Protime)PT. 22.1 SECONDS (11.7-14.9)
== END 2019-01-24 11:00 | disposition home or self-care (01) ==
LOC: LAB 09:45
PROVIDERS: Referring Provider Internal Medicine Cardiovascular Disease; Visit Provider Internal Medicine Cardiovascular Disease
DX: I48.1 Persistent atrial fibrillation (principal); Z79.01 Long term (current) use of anticoagulants
CPT/HCPCS: 36415; 85610

== ENCOUNTER 2019-02-14 09:36 | Outpatient (RCR) | payer MEDICARE, BC, SELFPAY ==
[2018-10-26 12:59] VITALS: BMI 29.6
[2019-02-14 10:21] LABS: Prothrombin Time (Protime)PT. 22.8 SECONDS (11.7-14.9)
== END 2019-02-14 10:00 | disposition home or self-care (01) ==
LOC: LAB 09:36
PROVIDERS: Referring Provider Internal Medicine Cardiovascular Disease; Visit Provider Internal Medicine Cardiovascular Disease
DX: I48.1 Persistent atrial fibrillation (principal); Z79.01 Long term (current) use of anticoagulants
CPT/HCPCS: 36415; 85610

== ENCOUNTER 2019-03-21 09:17 | Outpatient (RCR) | payer MEDICARE, BC, SELFPAY ==
[2018-10-26 12:59] VITALS: BMI 29.6
[2019-03-21 10:06] LABS: International Normalized Ratio 2.7; Prothrombin Time (Protime)PT. 28.5 SECONDS (11.7-14.9)
== END 2019-04-12 17:35 | disposition home or self-care (01) ==
LOC: LAB 09:17
PROVIDERS: Referring Provider Internal Medicine Cardiovascular Disease; Visit Provider Internal Medicine Cardiovascular Disease
DX: I48.1 Persistent atrial fibrillation (principal); Z79.01 Long term (current) use of anticoagulants
CPT/HCPCS: 36415; 85610

== ENCOUNTER 2019-04-26 08:39 | Outpatient (RCR) | payer MEDICARE, BC, SELFPAY ==
[2018-10-26 12:59] VITALS: BMI 29.6
[2019-04-26 10:26] LABS: International Normalized Ratio 2.2; Prothrombin Time (Protime)PT. 24.7 SECONDS (11.7-14.9)
== END 2019-04-26 09:00 | disposition home or self-care (01) ==
LOC: LAB 08:39
PROVIDERS: Referring Provider Internal Medicine Cardiovascular Disease; Visit Provider Internal Medicine Cardiovascular Disease
DX: I48.1 Persistent atrial fibrillation (principal); Z79.01 Long term (current) use of anticoagulants
CPT/HCPCS: 36415; 85610

== ENCOUNTER 2019-05-25 09:52 | Outpatient (RCR) | payer MEDICARE, BC, SELFPAY ==
[2018-10-26 12:59] VITALS: BMI 29.6
[2019-05-25 11:44] LABS: International Normalized Ratio 2.8; Prothrombin Time (Protime)PT. 29.4 SECONDS (11.7-14.9)
== END 2019-05-25 11:00 | disposition home or self-care (01) ==
LOC: LAB 09:52
PROVIDERS: Referring Provider Internal Medicine Cardiovascular Disease; Visit Provider Internal Medicine Cardiovascular Disease
DX: I48.1 Persistent atrial fibrillation (principal); Z79.01 Long term (current) use of anticoagulants
CPT/HCPCS: 36415; 85610

== ENCOUNTER 2019-06-22 10:41 | Outpatient (RCR) | payer MEDICARE, BC, SELFPAY ==
[2018-10-26 12:59] VITALS: BMI 29.6
[2019-06-22 11:23] LABS: International Normalized Ratio 2.1; Prothrombin Time (Protime)PT. 23.6 SECONDS (11.7-14.9)
== END 2019-06-22 18:00 | disposition home or self-care (01) ==
LOC: LAB 10:41
PROVIDERS: Referring Provider Internal Medicine Cardiovascular Disease; Visit Provider Internal Medicine Cardiovascular Disease
DX: I48.19 Other persistent atrial fibrillation (principal); Z79.01 Long term (current) use of anticoagulants
CPT/HCPCS: 36415; 85610

== ENCOUNTER → 2019-07-17 16:02 | Outpatient (CLI) | payer MEDICARE, BC, SELFPAY ==
[2018-10-26 12:59] VITALS: BMI 29.6
[2019-07-17 17:31] LABS: Absolute Lymphocyte Count 0.62 X10^3/uL (0.83-4.51); Absolute Neutrophil Count 14.2 X10^3/uL (2.0-7.7); Basophil# 0.03 X10^3/uL; Basophil% 0.2 % (0-1); Eosinophil# 0.07 X10^3/uL; Eosinophils% 0.4 % (0-5); Hematocrit 48.7 % (40-54); Hemoglobin 16.6 g/dL (13.0-16.5); Lymphocyte # 0.62 X10^3/ul (4.0); Lymphocyte % 3.8 % (19-41); Mean Corp Hgb Conc 34.1 g/dL (32-36); Mean Corpuscular Volume 90.9 fL (80-94); Mean Platelet Vol. 11.4 fl (6.2-12.0); Monocyte# 1.17 X10^3/uL; Monocyte% 7.2 % (0-10); NRBC Flagged by Analyzer 0 % (0-5); Neutrophil # 14.24 X10^3/uL (2.7-7.7); Neutrophil % 87.7 % (47-70); Platelet Count 202 K/mm3 (150-450); RBC Distribution Width CV 12.7 % (11.6-14.6); RBC Distribution Width SD 41.7 fl (35.1-43.9); Red Blood Count 5.36 M/mm3 (4.6-6.2); White Blood Count 16.2 K/mm3 (4.4-11.0)
[2019-07-17 17:41] LABS: AST(SGOT) 74 U/L (15-37); Alanine Aminotransfer ALT/SGPT 149 U/L (16-61); Albumin, Serum 3.8 g/dL (3.2-5.0); Alkaline Phosphatase 66 U/L (45-117); Anion Gap 11 (5-15); BUN 16 mg/dL (7-18); Calcium,Total 8.4 mg/dL (8.5-10.1); Chloride 99 mmol/L (98-107); Creatinine, Serum 1.07 mg/dL (0.70-1.30); EST Glomerular Filtration Rate 70 mL/min (>60); Est Glom Filt Rate - Afr Amer 85 mL/min (>60); Globulin 3.7 g/dL (2.2-4.2); Glucose 187 mg/dL (74-106); Lipase 5480 U/L (73-393); Potassium 3.7 mmol/L (3.5-5.1); Protein, Total 7.5 g/dL (6.4-8.2); Sodium Level 137 mmol/L (136-145)
== END ==
PROVIDERS: Family Provider Family Medicine; PCP Family Medicine; Visit Provider Family Medicine
DX: I48.20 Chronic atrial fibrillation, unspecified (principal); R11.0 Nausea; R10.9 Unspecified abdominal pain
CPT/HCPCS: 36415; 80053; 83690; 85025

== ENCOUNTER 2019-07-18 11:39 | Inpatient (IN) | payer MEDICARE, BC, SELFPAY ==
[2018-10-26 12:59] VITALS: BMI 29.6
[2019-07-18] VITALS (16 sets, daily range): BP systolic 103–145; BP diastolic 72–88; PULSE 90–128; RESP 18–27; TEMP 36.6–37.6; O2SAT 91–98; BMI 29.0; BMI 28.3; BMI 28.4
--- NOTE | 2019-07-18 11:53 | US_ITS ---
STUDY: ABDOMINAL ULTRASOUND - RIGHT UPPER QUADRANT REASON FOR VISIT: Male, 84 years old right upper quadrant pain with nausea and vomiting. TECHNIQUE: Ultrasound evaluation of the right upper quadrant was performed with real-time and static fischer-scale imaging. TECHNICAL QUALITY: Limited. Examination limited due to the patient?s condition. COMPARISON: None. FINDINGS: Liver: The liver measures 15.7 cm. There is increased echogenicity consistent with fatty infiltration. The bile ducts are within normal limits. There is hepatic color flow. The direction of portal flow is hepatopetal. There is no demonstrated mass lesion. Gallbladder: Normal distended gallbladder. The gallbladder wall is thickened and measures 5.2 mm. There is a positive sonographic Paece's sign. There is a small amount of pericholecystic fluid. There are multiple echogenic structures within the gallbladder, consistent with multiple gallstones. Sludge is also seen within the gallbladder lumen. Common Bile Duct (C.B.D.): The common bile duct measures 5.9 mm. Pancreas: There is nonvisualization of the pancreas due to overlying bowel gas. Right Kidney: Normal size of the right kidney. The right kidney measures 12.0 cm x 6.8 cm x 5.5 cm. Normal renal cortex. The right cortex measures 1.5 cm. There is a 1.7 cm x 2.2 cm x 2.3 cm renal cyst. There is no right hydronephrosis. US/Gallbladder IMPRESSION: Multiple small gallstones and sludge within the gallbladder lumen. Thickened gallbladder wall. Small amount of pericholecystic fluid. Electronically Signed: Nathen Wood, at 13:36 EST , Service support ,
--- NOTE | 2019-07-18 11:54 | ED.VIS.GEN ---
History of Present Illness Chief Complaint: Abd Pain Detail of Chief Complaint: Pancreatitis Informant: Patient, Significant Other Onset: Days Context: Sudden Onset Timing: Continuous Quality: Pain upper abdomen Location: Upper abdomen Current Severity: Mild Maximum Severity: Severe Worsened by: During examination Relieved by: Nothing Associated Symptoms: Nausea, decreased appetite and no bowel movement since Wednesday morning Narrative: Patient is an elderly male with multiple significant past medical problems who was sent to the ER because of worsening abdominal pain with nausea. He had outpatient blood work yesterday that indicates he has acute pancreatitis. states she rarely has a drink. He is a non-smoker. This morning he had dark-colored urine. He denies light-colored stool. He denies black or maroon-colored stool. He is not a good informant. had to supplement. He also reports abdominal distention and fullness. He denies cardiac respiratory symptoms. 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 and chronic atrial fibrillation Prior similar symptoms: Yes - Seen yesterday at PCPs office Recent Illness/Hospitalization: Yes - Past Medical History (1) History stage IV bladder cancer Status: Acute (2) SMA occlusion Status: Acute (3) Diabetes Status: Chronic (4) Longstanding persistent atrial fibrillation Status: Chronic Past Medical History - Allergies and Home Meds Allergies/Adverse Reactions: Allergies metformin Allergy (Severe, Verified 07/18/19 11:42) lethargic Primary Care Physician: Darrion Almodovar MD [NON-STAFF] - Prior records reviewed: Yes Lives: Spouse/ Significant Other Smoking Status: Former smoker Alcohol: Rare Drugs: None Review of Systems General: Reports: Malaise. Denies: Chills, Fever, Sweats Eyes: Denies: Visual changes - bilaterally, Blurred Vision - bilaterally ENT: Denies: Rhinorrhea Cardiovascular: Denies: Chest pain, Palpitations Respiratory: Denies: Dyspnea, Dyspnea on exertion, Orthopnea Gastrointestinal: Reports: Abdominal pain, Nausea, Constipation. Denies: Vomiting, Diarrhea, Melena, Hematochezia, -, - Genitourinary: Reports: Hematuria. Denies: Dysuria, Frequency, -, - Musculoskeletal: Denies: Myalgias, Arthralgias, Neck pain, Back pain, Swelling, Extremity Pain, -, - Neurological: Denies: Headache, Weakness, Numbness Endocrine: Denies: Polyuria, Polydipsia Hematologic: Reports: Easy bruising Allergy: Denies: Uticaria, Swelling of the mouth Physical Exam Vital Signs/Narrative: Vital Signs Temp Pulse Resp BP Pulse Ox 07/18/19 11:47 98 20 H 96 07/18/19 11:39 98 F 104 H 18 118/73 98 Inital Vital Signs reviewed: Yes General: Well nourished, Well developed, No Acute Distress Head: Normocephalic, Atraumatic Eyes: Perrl, EOMI, Scleral icterus. Negative for: Pale conjunctiva ENT: Moist mucous membranes, No rhinorrhea, TM's clear Neck: Supple, Nontender, No lymphadenopathy, No JVD Cardiovascular: No murmurs, Irregular, Tachycardia Respiratory: No distress, CTA bilaterally, Chest nontender Abdomen: Soft, No masses, Tender, Guarding, Hypoactive bowel sounds, Peace's sign, - - Patient has rectus diastases. Negative for: Nontender, Nondistended, Normal bowel sounds, Rebound tenderness, Hyperactive bowel sounds, Hepatomegaly, Splenomegaly, Mass Back: Nontender, Normal Inspection. Negative for: CVA tenderness Skin: No rash, Jaundice, No Trauma. Negative for: Cyanosis, Diaphoresis Neurological: Alert, Oriented x3, Cranial nerves II-XII grossly intact, Normal Strength, Normal Sensation Psychological: Normal affect, Normal Mood Diagnostic/Tx/Re-eval Impressions Gallbladder Ultrasound 07/18/19 11:53 IMPRESSION: Multiple small gallstones and sludge within the gallbladder lumen. Thickened gallbladder wall. Small amount of pericholecystic fluid. Electronically Signed: Nathen Wood, at 13:36 EST , Service support , 07/18/19 11:53 US Gallbladder [Gallbladder] [US] Stat Laboratory Results 07/18/19 07/18/19 07/18/19 12:00 12:00 12:00 WBC 20.2 H RBC 5.22 Hgb 16.2 Hct 46.8 MCV 89.7 MCH 31.0 MCHC 34.6 RDW Std Deviation 42.6 RDW Coeff of Matteo 13.0 Plt Count 173 MPV 11.3 Immature Gran % (Auto) 1.000 H Neut % (Auto) 87.5 H Lymph % (Auto) 2.7 L Kershaw % (Auto) 8.7 Eos % (Auto) 0.0 Baso % (Auto) 0.1 Absolute Neuts (auto) 17.6 H Absolute Lymphs (auto) 0.55 L Nucleated RBC % 0 Differential Comment SCANNED Diff Path Review January PT 29.2 H INR 2.8 Sodium 131 L Potassium 3.8 Chloride 98 Carbon Dioxide 25.0 Anion Gap 8 BUN 17 Creatinine 1.16 Estim Creat Clear Calc 45.86 Est GFR (MDRD) Af Amer 77 Est GFR (MDRD) Non-Af 64 BUN/Creatinine Ratio 14.7 Glucose 189 H Lactic Acid Calcium 8.4 L Total Bilirubin 1.60 H AST 36 ALT 93 H Alkaline Phosphatase 58 Total Protein 7.2 Albumin 3.7 Globulin 3.5 Albumin/Globulin Ratio 1.1 Lipase 1750 H 07/18/19 12:00 WBC RBC Hgb Hct MCV MCH MCHC RDW Std Deviation RDW Coeff of Matteo Plt Count MPV Immature Gran % (Auto) Neut % (Auto) Lymph % (Auto) K[place]haw % (Auto) Eos % (Auto) Baso % (Auto) Absolute Neuts (auto) Absolute Lymphs (auto) Nucleated RBC % Differential Comment Diff Path Review PT INR Sodium Potassium Chloride Carbon Dioxide Anion Gap BUN Creatinine Estim Creat Clear Calc Est GFR (MDRD) Af Amer Est GFR (MDRD) Non-Af BUN/Creatinine Ratio Glucose Lactic Acid 2.4 H Calcium Total Bilirubin AST ALT Alkaline Phosphatase Total Protein Albumin Globulin Albumin/Globulin Ratio Lipase I are to radiologist read of ultrasound Dr. Daniel Gleason was contacted. He is presently seen patient. He requested admission to hospitalist service with consultation to him. - EKG Initial EKG Interpretation: Atrial Fibrillation - Ventricular rate 129. QRS duration 88 ms. QT duration 314 ms. [place] is normal. There are nonspecific ST-T wave changes, which may be rate dependent. - Medical Decision Making With right upper quadrant pain acute pancreatitis and jaundice concern patient has choledocholithiasis. Will obtain appropriate blood work compared to yesterday's. Patient was medicated with Zofran and morphine for his nausea and pain. Ultrasound of the right upper quadrant was ordered. Patient was informed he will require admission to the hospital. Since patient has white count, tachycardia, tachypnea with source he has severe sepsis. Plan is to admit to hospital service with consultation to surgery. - Critical Care Time Critical care time (excluding procedures): 30-74 minutes - Critical care time 32 minutes, Discussing w/Patient &/or Family/Production Grader, Discussing w/Consultants, Arranging Admission or Transfer ED Disposition - Plan for ED Patient: Disposition: Acute Care Hospital [facility] Diagnosis: Acute calculous cholecystitis, Acute gallstone pancreatitis, Atrial fibrillation with RVR, Severe sepsis, Anticoagulant long-term use Referrals: Darrion Almodovar MD [NON-STAFF] -
[2019-07-18] MEDS: 0.9% Normal Saline 1,000 ML 250 ML IV (12:12)
[2019-07-18] MEDS: Ondansetron 4 MG/2 ML Vial IV (12:13)
[2019-07-18] MEDS: Morphine 4 MG/ML Syringe IV (12:13)
[2019-07-18 12:28] LABS: Absolute Lymphocyte Count 0.55 X10^3/uL (0.83-4.51); Absolute Neutrophil Count 17.6 X10^3/uL (2.0-7.7); Basophil# 0.03 X10^3/uL; Basophil% 0.1 % (0-1); Hematocrit 46.8 % (40-54); Hemoglobin 16.2 g/dL (13.0-16.5); Lymphocyte # 0.55 X10^3/ul (4.0); Lymphocyte % 2.7 % (19-41); Mean Corp Hgb Conc 34.6 g/dL (32-36); Mean Corpuscular Volume 89.7 fL (80-94); Mean Platelet Vol. 11.3 fl (6.2-12.0); Monocyte# 1.75 X10^3/uL; Monocyte% 8.7 % (0-10); NRBC Flagged by Analyzer 0 % (0-5); Neutrophil # 17.62 X10^3/uL (2.7-7.7); Neutrophil % 87.5 % (47-70); POSITIVE DIFFERENTIAL YES; POSITIVE MORPHOLOGY YES; Platelet Count 173 K/mm3 (150-450); RBC Distribution Width SD 42.6 fl (35.1-43.9); Red Blood Count 5.22 M/mm3 (4.6-6.2); White Blood Count 20.2 K/mm3 (4.4-11.0)
[2019-07-18 12:35] LABS: International Normalized Ratio 2.8; Prothrombin Time (Protime)PT. 29.2 SECONDS (11.7-14.9)
[2019-07-18 12:37] LABS: ALB/GLOB Ratio 1.1 RATIO (0.9-2.4); AST(SGOT) 36 U/L (15-37); Alanine Aminotransfer ALT/SGPT 93 U/L (16-61); Albumin, Serum 3.7 g/dL (3.2-5.0); Alkaline Phosphatase 58 U/L (45-117); Anion Gap 8 (5-15); BUN 17 mg/dL (7-18); BUN/Creat Ratio 14.7 RATIO (10-20); Calcium,Total 8.4 mg/dL (8.5-10.1); Chloride 98 mmol/L (98-107); Creatinine, Serum 1.16 mg/dL (0.70-1.30); EST Glomerular Filtration Rate 64 mL/min (>60); Est Glom Filt Rate - Afr Amer 77 mL/min (>60); Estimated Creatinine Clearance 45.86 ml/min; Globulin 3.5 g/dL (2.2-4.2); Glucose 189 mg/dL (74-106); Lipase 1750 U/L (73-393); Potassium 3.8 mmol/L (3.5-5.1); Protein, Total 7.2 g/dL (6.4-8.2); Sodium Level 131 mmol/L (136-145)
[2019-07-18 12:45] LABS: Differential Indicated SCAN CRITERIA MET
--- NOTE | 2019-07-18 12:45 | ED.RN ---
LACTIC ACID 2.[address] LAB[address] DR ARAUJO AWARE
[2019-07-18 12:46] LABS: Lactic Acid 2.4 mmol/L (0.4-2.0)
[2019-07-18 13:08] LABS: Differential Comment SCANNED
--- NOTE | 2019-07-18 13:32 | EKG12_ITS ---
Test Reason : Blood Pressure : / mmHG Vent. Rate : 102 BPM Atrial Rate : 111 BPM P-R Int : 000 ms QRS Dur : 092 ms QT Int : 360 ms P-R-T Axes : 000 010 039 degrees QTc Int : 469 ms Atrial fibrillation with rapid ventricular response with premature ventricular or aberrantly conducte d complexes Abnormal ECG Confirmed by CL AGUILAR, KAMRYN ([id number]), index editor SHEA MARQUES ([id number]) on 07/25/2019 2:41:27 PM Referred By: SG Confirmed By:KAMRYN SMALLWOOD MD
--- NOTE | 2019-07-18 14:07 | PCM.HP.STD ---
Problem List (1) Severe sepsis Status: Acute (2) Acute calculous cholecystitis Status: Acute (3) Acute gallstone pancreatitis Status: Acute (4) Atrial fibrillation with RVR Status: Acute (5) Diabetes Status: Chronic Qualifiers: Diabetes mellitus type: type 2 Diabetes mellitus fci insulin use: without middle or intermediate school principal use Diabetes mellitus complication status: with other specified complication Qualified Code(s): E11.69 - Type 2 diabetes mellitus with other specified complication (6) Longstanding persistent atrial fibrillation Status: Chronic (7) History stage IV bladder cancer Status: Chronic (8) HTN (hypertension) Status: Chronic Qualifiers: Hypertension type: essential hypertension Qualified Code(s): I10 - Essential (primary) hypertension (9) HLD (hyperlipidemia) Status: Chronic Qualifiers: Hyperlipidemia type: unspecified Qualified Code(s): E78.5 - Hyperlipidemia, unspecified History of Present Illness Date of Admission: 07/18/19 Chief Complaint: Abdominal pain The patient is an 84 y/o M w/ PMHx: Chronic Atrial Fibrillation on Coumadin, HTN, HLD, OA, Hx Mesenteric Ischemia, Hx Bladder CA s/p resection 10/2016, Diabetes mellitus type II who presents to the [facility] ED on 07/18/19 with history of ongoing abdominal pain, described initially as BL LQ primarily, constant, aching, worse with any attempted oral intake starting Wednesday with worsening status over the last 48 hours with now nausea, emesis, poor oral intake, transition of pain to the RUQ primarily with onset subjective fevers and chills with PCP evaluation 07/17/19 with labs at that time with WBC elevation with L shift and elevated lipase with referral to the ED. Patient rates pain especially with initial onset 10 out of 10, improved in the ED with pain medication administration, 5-7 out of 10. Work-up in the ED included T 98, heart rate 104, BP 118/73, respiratory rate 20, 96% on room air, CBC with WC 20.2, hemoglobin 16.2, platelet 173 with left shift, INR 2.8, CMP with sodium 131, BUN/creatinine 17/1.16, glucose 189, lactic acid 2.4, total bilirubin 1.60, AST/ALT 36/93, lipase 1750, gallbladder ultrasound with multiple small gallstones and sludge within the gallbladder lumen with a thickened gallbladder wall and a small amount of pericholecystic fluid. In the ED patient ministered normal saline, morphine, Zofran and Zosyn therapy. In the ED given patient appearance severity Hospitalist admission with Surgery consultation, Dr. Gleason with planned likely cholecystectomy to allow improvement of his associated pancreatitis. Discussed case also upon presentation with his Claims Configuration Analyst Dr. Perez with recent ECHO and 10/2017 normal stress testing with agreement to progression to OR with planned evaluation concurrently. 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.01 Osteoarthritis M19.90 Mesenteric ischemia K55.9 Allergies metformin Allergy (Severe, Verified 07/18/19 11:42) lethargic Home Medications: Ambulatory Orders Medication Instructions Recorded Cholecalciferol (Vitamin D3) 2,000 unit PO DAILY 07/18/19 [Vitamin D3] Docusate Sodium [Dulcolax Stool 100 mg PO QHS 07/18/19 Softener] Finasteride 5 mg PO QHS 07/18/19 Warfarin Sodium 7.5 mg PO SUTUTHSA 07/18/19 Warfarin Sodium 10 mg PO MOWEFR 07/18/19 Surgical History: Surgical History (Last Updated 06/27/18 @ 13:31 by Nati Mendoza) Status post small bowel resection Onset Date: 06/12/18 Z90.49 History of bladder surgery Z98.890 Transurethral resection of bladder tumor 10/30 Surgical History: - - Transurethral bladder cancer resection, small bowel partial resection, cataract surgery. Psychiatric History: No pertinent psych hx Lives: Spouse/ Significant Other Smoking Status: Former smoker - Patient quit cigarette tobacco usage approximate 4 years prior. Tobacco Use: Non-smoker Alcohol: Rare Drugs: None - *Family History Maternal Family History: Family History (Last Updated 06/27/18 @ 13:34 by Nati Mendoza) Mother Cancer Brother Cancer Sister Cancer Sister Cancer Brother Myocardial infarction History Items: Cancer Paternal Family History: Family History (Last Updated 06/27/18 @ 13:34 by Nati Mendoza) Mother Cancer Brother Cancer Sister Cancer Sister Cancer Brother Myocardial infarction History Items: Heart Disease Review of Systems Constitutional: Reports: Anorexia, Chills, Fever, Malaise, Weakness, Fatigue. Denies: Weight Change HEENT: Denies: Head Aches, Sinus Congestion, Sinus Drainage Cardiovascular: Denies: Chest Pain, Palpitations Respiratory: Denies: Cough, Shortness of breath at rest, Sputum production Gastrointestinal: Reports: Abdominal Pain, Nausea, Vomiting Genitourinary: Denies: Dysuria Musculoskeletal: Denies: Joint Pain, Joint Tenderness Skin: Denies: Rash, Wounds Neurological: Denies: Numbness, Tingling, Focal weakness Psychiatric: Denies: Anxiety, Depression, Homicidal Ideations, Suicidal Ideations Hematologic/ Lymphatic: Reports: Easy Bruising, Easy Bleeding VTE Information - Inpt Only VTE Present on Admission: No VTE Mechan Device Prophylaxis: SCD's VTE Pharm Prophylaxis ordered?: No Reason prophylaxis not ordered:: Treatment Not Indicated - Coumadin w/ reversal. Patient Problems: Active and Suspected Problems (Last Updated 06/27/18 @ 14:05 by Nati Mendoza) Acute calculous cholecystitis (Acute) Acute gallstone pancreatitis (Acute) Atrial fibrillation with RVR (Acute) Severe sepsis (Acute) Anticoagulant long-term use (Acute) Subjective: Seated upright in the ED bed, ongoing primarily RUQ pain, no current nausea, notes pain improved w/ pain regimen. Objective: Physical Examination: General: awake, alert, oriented x 3 and cooperative, seated upright in the ED bed in no apparent distress, notes pain improved with pain regimen in ED but still ongoing and worsened with palpation. Skin: normal color, turgor, no icterus, cyanosis. HEENT: AT/NC, EOMI, PERRLA, dry MM, no carotid bruits or JVD noted. Lungs: CTA bilaterally, moderate effort, mild decrease BL bases, no rales, ronchi or wheezing. Heart: Irregular irregular; no gallop, rub audible. Abdomen: soft, diffuse tenderness to palpation, > epigastric region however rebound and guarding right upper quadrant primarily, no apparent distention, mild to hyperactive bowel sounds, difficult to assess HSM secondary to acute presentation. Extremities: no cyanosis, clubbing, or edema. Neurological: patient awake, alert, oriented x 3; cognitive function intact; pupils equally reactive to light and accomodation; cranial nerves II-XII grossly normal, moving all 4 extremities, no focal deficits, strength severely global decrease secondary to acute presentation. Psychiatric: affect appears fatigued, no acute evidence of depressive or anxiety feelings. - Physical Exam Vitals/I&O's: Vital Signs Temp Pulse Resp BP Pulse Ox 98 F 98 20 H 118/73 96 07/18/19 11:39 07/18/19 11:47 07/18/19 11:47 07/18/19 11:39 07/18/19 11:47 Oxygen Delivery Method Room Air Weight: 191 lb Body Mass Index (BMI) 29.0 Laboratory Results 07/18/19 12:00: WBC 20.2 H, RBC 5.22, Hgb 16.2, Hct 46.8, MCV 89.7, MCH 31.0, MCHC 34.6, RDW Std Deviation 42.6, RDW Coeff of Matteo 13.0, Plt Count 173, MPV 11.3, Immature Gran % (Auto) 1.000 H, Neut % (Auto) 87.5 H, Lymph % (Auto) 2.7 L, Weld % (Auto) 8.7, Eos % (Auto) 0.0, Baso % (Auto) 0.1, Absolute Neuts (auto) 17.6 H, Absolute Lymphs (auto) 0.55 L, Nucleated RBC % 0, Differential Comment SCANNED, Diff Path Review January07/18/19 12:00: PT 29.2 H, INR 2.8 07/18/19 12:00: Sodium 131 L, Potassium 3.8, Chloride 98, Carbon Dioxide 25.0, Anion Gap 8, BUN 17, Creatinine 1.16, Estim Creat Clear Calc 45.86, Est GFR (MDRD) Af Amer 77, Est GFR (MDRD) Non-Af 64, BUN/Creatinine Ratio 14.7, Glucose 189 H, Calcium 8.4 L, Total Bilirubin 1.60 H, AST 36, ALT 93 H, Alkaline Phosphatase 58, Total Protein 7.2, Albumin 3.7, Globulin 3.5, Albumin/Globulin Ratio 1.1, Lipase 1750 H 07/18/19 12:00: Lactic Acid 2.4 H Current Medications Sodium Chloride () 1,000 mls @ 250 mls/hr IV .Q4H MEMO Last Admin: 07/18/19 12:12 Dose: 250 mls/hr Documented by: Assessment/Plan All Active Problems (Last Updated 06/27/18 @ 14:05 by Nati Mendoza) SMA occlusion (Acute) Acute calculous cholecystitis (Acute) Acute gallstone pancreatitis (Acute) Atrial fibrillation with RVR (Acute) Severe sepsis (Acute) Anticoagulant long-term use (Acute) The patient is an 84 y/o M w/ PMHx: Chronic Atrial Fibrillation on Coumadin, HTN, HLD, OA, Hx Mesenteric Ischemia, Hx Bladder CA s/p resection 10/2016, Diabetes mellitus type II who presents to the [facility] ED on 07/18/19 with history of ongoing abdominal pain, described initially as BL LQ primarily, constant, aching, worse with any attempted oral intake starting Wednesday with worsening status over the last 48 hours with now nausea, emesis, poor oral intake, transition of pain to the RUQ primarily with onset subjective fevers and chills. (1) Acute Severe Sepsis secondary to Acute Cholelithiasis w/ Acute Gallstone pancreatitis w/ abdominal pain, N/V: Will admit to PCU given presentation, administer additional 2L NS bolus as likely contributing to #2, maintain on MIVFs, NPO status, IV famotidine, IV zosyn, IV/po pain control, trend lipase, CMP, Surgery consulted, planned OR w/ cholecystectomy likely , IV Vit K upon admission w/ INR repeat in AM, FFP if needed prior to OR but given timeline likely normalize prior. Cardiology will evaluate patient, currently from office evaluations and recent ECHO, 10/2017 stress, amenable to progression to OR. (2) Chronic atrial fibrillation w/ RVR: EKG in ED w/ atrial fibrillation w/ RVR. Patient administered IV fluids in the ED given acute presentation #1 felt likely source. Of note from prior Cardiology notes does not tolerate BB well. Will maintain on telemetry, obtain cardiac enzyme serial set, obtain magnesium level, 06/13/18 ECHO w/ normal LV size and systolic function, no regional wall motion abnormalities, EF 60 to 65%, normal LV wall thickness, possible grade 3 diastolic dysfunction. 10/2017 Stress testing unremarkable. Cardiology consulted, agreed to progress to OR once appropriate. Noted rate agents if needed. (3) Hypertension: Noted history, not on regimen currently, stable BPs, PRN IV hydralazine. (4) Hyperlipidemia: Not on statin, defer especially given acute presentation. (5) Diabetes mellitus type II: Diet controlled, not on regimen, NPO status, q 6 hour accu checks w/ ISS. (6) Hx Bladder CA: s/p Transurethral resection, remission. (7) BPH: Maintain on home proscar regimen. (8) Hx Mesenteric Ischemia: s/p partial SBO. (9) GERD: IV Famotidine. (10) DVT Prophylaxis: SCDs, holding coumadin w/ reversal, INR trending. 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 Discussed CODE status at length including difference between FULL code, DNR-CCA and DNR-CC status. Following discussions about the differences in these status, requested DNR-CCA, no intubation status. Advanced Care Planning Face to Face Time: 17 minutes. Code Visit Inpatient E&M: 67966 Init Hosp L3 Procedures: 55772 Advncd Care Plan 30 Min
--- NOTE | 2019-07-18 14:33 | PCM.CONS.GEN ---
<Manpreet Gleason - Last Filed: 07/18/19 17:01> Reason for Consult History of Present Illness: The patient is a 84 year old w/ PMHx: Chronic Atrial Fibrillation on Coumadin, HTN, HLD, OA, Hx Mesenteric Ischemia, Hx Bladder CA s/p resection 10/2016, Diabetes mellitus type II who presents to the [facility] ED on 07/18/19 with history of ongoing abdominal pain, described initially as BL LQ primarily, constant, aching, worse with any attempted oral intake starting Wednesday with worsening status over the last 48 hours with now nausea, emesis, poor oral intake, transition of pain to the RUQ primarily with onset subjective fevers and chills. Patient's labs showed an elevated white count slightly elevated total bilirubin INR above 2. Ultrasound confirmed cholelithiasis with a thickened gallbladder wall minimal pericholecystic fluid with a common bile duct being normal. Since being in the emergency department his pain is significantly improved. He still has some back pain and some right upper quadrant abdominal pain but it was nothing like what brought him into the emergency department. The present time he is tacking along around 130 in the emergency department he is going to be admitted to medicine consultation with his housekeeper caregiver will be obtained in my plan is to have him ready for surgery by this coming . Past Medical History Past Medical History (Chronic Problems): Chronic Problems (Last Reviewed 07/19/19 @ 08:17 by Sandrine Gaytan PA-C) History stage IV bladder cancer (Chronic) HTN (hypertension) (Chronic) HLD (hyperlipidemia) (Chronic) Diabetes (Chronic) Longstanding persistent atrial fibrillation (Chronic) Medical History: Medical History (Last Updated 06/27/18 @ 14:05 by Nati Mendoza) Diabetes (Chronic) E11.9 Longstanding persistent atrial fibrillation (Chronic) I48.1 Hemorrhoids K64.9 History of cancer Z85.9 Hyperlipidemia E78.5 Intermittent urinary incontinence R32 Knee pain M25.569 intermission coordinator (current) use of anticoagulants Z79.01 Osteoarthritis M19.90 Mesenteric ischemia K55.9 Allergies metformin Allergy (Severe, Verified 07/18/19 14:54) kidneys shut down Home Medications: Ambulatory Orders Medication Instructions Recorded Cholecalciferol (Vitamin D3) 2,000 unit PO DAILY 07/18/19 [Vitamin D3] Docusate Sodium [Dulcolax Stool 100 mg PO QHS 07/18/19 Softener] Finasteride 5 mg PO QHS 07/18/19 Warfarin Sodium 7.5 mg PO SUTUTHSA 07/18/19 Warfarin Sodium 10 mg PO MOWEFR 07/18/19 Surgical History: Surgical History (Last Updated 06/27/18 @ 13:31 by Nati Mendoza) Status post small bowel resection Onset Date: 06/12/18 Z90.49 History of bladder surgery Z98.890 Transurethral resection of bladder tumor 10/30 - *Family History Maternal Family History: Family History (Last Updated 06/27/18 @ 13:34 by Nati Mendoza) Mother Cancer Brother Cancer Sister Cancer Sister Cancer Brother Myocardial infarction Paternal Family History: Family History (Last Updated 06/27/18 @ 13:34 by Nati Mendoza) Mother Cancer Brother Cancer Sister Cancer Sister Cancer Brother Myocardial infarction Patient Problems: Active and Suspected Problems (Last Reviewed 07/19/19 @ 08:17 by Sandrine Gaytan PA-C) Acute calculous cholecystitis (Acute) Acute gallstone pancreatitis (Acute) Atrial fibrillation with RVR (Acute) Severe sepsis (Acute) Anticoagulant long-term use (Acute) - Physical Exam Vitals/I&O's: Vital Signs Temp Pulse Resp BP Pulse Ox 98.0 F 103 H 20 H 145/73 H 98 07/18/19 15:37 07/18/19 15:50 07/18/19 15:37 07/18/19 15:37 07/18/19 15:37 Oxygen Delivery Method Room Air Weight: 186 lb 9.6 oz Body Mass Index (BMI) 28.3 Intake and Output for Last 24 Hours 07/16/19 07/17/19 07/18/19 23:59 23:59 23:59 Intake Total 1176.67 / 1176.67 Output Total 200 / 200 Balance 976.67 / 976.67 Laboratory Results 07/18/19 12:00: WBC 20.2 H, RBC 5.22, Hgb 16.2, Hct 46.8, MCV 89.7, MCH 31.0, MCHC 34.6, RDW Std Deviation 42.6, RDW Coeff of Matteo 13.0, Plt Count 173, MPV 11.3, Immature Gran % (Auto) 1.000 H, Neut % (Auto) 87.5 H, Lymph % (Auto) 2.7 L, [place] % (Auto) 8.7, Eos % (Auto) 0.0, Baso % (Auto) 0.1, Absolute Neuts (auto) 17.6 H, Absolute Lymphs (auto) 0.55 L, Nucleated RBC % 0, Differential Comment SCANNED, Diff Path Review January07/18/19 12:00: PT 29.2 H, INR 2.8 07/18/19 12:00: Sodium 131 L, Potassium 3.8, Chloride 98, Carbon Dioxide 25.0, Anion Gap 8, BUN 17, Creatinine 1.16, Estim Creat Clear Calc 45.86, Est GFR (MDRD) Af Amer 77, Est GFR (MDRD) Non-Af 64, BUN/Creatinine Ratio 14.7, Glucose 189 H, Calcium 8.4 L, Total Bilirubin 1.60 H, AST 36, ALT 93 H, Alkaline Phosphatase 58, Total Protein 7.2, Albumin 3.7, Globulin 3.5, Albumin/Globulin Ratio 1.1, Lipase 1750 H 07/18/19 12:00: Lactic Acid 2.4 H 07/18/19 12:00: Magnesium 1.8 07/18/19 12:00: Troponin I < 0.015 07/18/19 15:20: Troponin I < 0.015 07/18/19 16:30: Lactic Acid Pending Current Medications Acetaminophen (Tylenol) 650 mg PO Q6H PRN PRN PRN Reason: Non-cardiac pain (mod-severe) Hydrocodone Bitart/Acetaminophen ([facility] 5mg-325mg) 1 - 2 tablet PO Q4H PRN PRN PRN Reason: Pain Score 4-10/10 Al Hydroxide/Mg Hydroxide (Mylanta Ii) 15 - 30 ml PO Q4H PRN PRN PRN Reason: INDIGESTION Albuterol Sulfate (Ventolin Aerosols) 2.5 mg INHALATION Q2H PRN PRN PRN Reason: dyspnea, wheezing Dextrose (D50w Syringe) 0 gm IV X1 PRN; Protocol PRN Reason: Hypoglycemia Finasteride (Proscar) 5 mg PO QHS MEMO Glucagon () 1 mg IM .X1 PRN PRN Reason: Hypoglycemia Hydralazine HCl (Apresoline Iv) 10 mg IV Q4H PRN PRN PRN Reason: SBP > 160 Sodium Chloride () 1,000 mls @ 150 mls/hr IV .Q6H40M MEMO Piperacillin Sod/Tazobactam (Sod 3.375 gm/ Sodium Chloride) 50 mls @ 12.5 mls/hr IV Q8 MEMO Famotidine 20 mg/ Sodium (Chloride) 10 mls @ 300 mls/hr IV Q12 MEMO Last Infusion: 07/18/19 16:48 Dose: Infused Documented by: Influenza Virus Vaccine Quadrival (Flucelvax /Fluzone ) 0.5 ml IM .ONCE ONE Stop: 07/19/19 10:01 Insulin Human Lispro (Humalog Kwikpen (Bkc)) 0 unit SC Q6 MEMO; Protocol Magnesium Hydroxide (Milk Of Magnesia) 30 ml PO DAILY PRN PRN Reason: Constipation Morphine Sulfate () 1 - 2 mg IV Q4H PRN PRN PRN Reason: Pain Score 1-10/10 Nitroglycerin (Nitrostat) 0.4 mg SUBLINGUAL Q5M PRN PRN Reason: CARDIAC/CHEST PAIN Ondansetron HCl (Zofran) 4 mg IV Q8H PRN PRN PRN Reason: NAUSEA/VOMITING Sodium Chloride () 10 - 40 ml IV UD PRN PRN Reason: SALINE FLUSH Assessment/Plan All Active Problems (Last Reviewed 07/19/19 @ 08:17 by Sandrine Gaytan PA-C) SMA occlusion (Acute) Acute calculous cholecystitis (Acute) Acute gallstone pancreatitis (Acute) Atrial fibrillation with RVR (Acute) Severe sepsis (Acute) Anticoagulant long-term use (Acute) <Sandrine Gaytan - Last Filed: 07/19/19 08:27> Problem List (1) Acute gallstone pancreatitis Status: Acute Reason for Consult Date of Consultation: 07/18/19 Reason for Consultation: Acute gallstone pancreatitis History of Present Illness: The patient is a 84 year old M who presented with 2 day history of worsening abdominal pain which has localized to the RUQ, nausea, vomiting. Patient stated he had ribs/beans and mashed potatoes from [employer] that Wednesday. He noted following lunch he was watching the [place] and then his symptoms began. He thought maybe he was getting the stomach flu. He noted then the pain progressed to similar pain that he had when he had ischemic enteritis in May of 2018. Patient had a diagnostic laparoscopy, mini laparotomy with small bowel resection o 06/12/[address] Robles. Patient denies previous issues with his gallbladder. Patient has had previous bladder cancer with chemo wash 10/2016 and no further chemotherapy. Patient also has a history of chronic atrial fibrillation and is maintained on Coumadin. Dr. Perez is his housekeeper caregiver. Patient is very hard of hearing Patient's labs showed an elevated WBC and slightly elevated Bilirubin at 1.6. Patient's INR is 2.8. Ultrasound confirmed cholelithiasis with thickened gallbladder wall and minimal amount of pericholecystic fluid with normal common bile duct. Patient is tachycardiac and currently in A fib with RVR in the ED. Past Medical History Medical History: Medical History (Last Reviewed 07/19/19 @ 08:17 by Sandrine Gaytan PA-C) Diabetes (Chronic) E11.9 Longstanding persistent atrial fibrillation (Chronic) I48.1 Hemorrhoids K64.9 History of cancer Z85.9 Hyperlipidemia E78.5 Intermittent urinary incontinence R32 Knee pain M25.569 group home (current) use of anticoagulants Z79.01 Osteoarthritis M19.90 Mesenteric ischemia K55.9 Allergies metformin Allergy (Severe, Verified 07/18/19 11:42) lethargic Surgical History: Surgical History (Last Reviewed 07/19/19 @ 08:17 by Sandrine Gaytan PA-C) Status post small bowel resection Onset Date: 06/12/18 Z90.49 History of bladder surgery Z98.890 Transurethral resection of bladder tumor 10/30 Psychiatric History: No pertinent psych hx Lives: Spouse/ Significant Other Smoking Status: Former smoker Alcohol: Rare Drugs: None - *Family History Maternal Family History: Family History (Last Reviewed 07/19/19 @ 08:17 by Sandrine Gaytan PA-C) Mother Cancer Brother Cancer Sister Cancer Sister Cancer Brother Myocardial infarction History Items: Cancer Paternal Family History: Family History (Last Reviewed 07/19/19 @ 08:17 by Sandrine Gaytan PA-C) Mother Cancer Brother Cancer Sister Cancer Sister Cancer Brother Myocardial infarction History Items: Heart Disease Review of Systems Constitutional: Reports: Anorexia, Chills, Fever, Fatigue HEENT: Reports: Hard of Hearing Cardiovascular: Denies: Chest Pain, Palpitations Respiratory: Denies: Cough, Shortness of breath at rest, Sputum production Gastrointestinal: Reports: Abdominal Pain, Nausea, Vomiting. Denies: Hematemesis, Hematochezia, Melena Genitourinary: Denies: Dysuria Musculoskeletal: Denies: Joint Pain, Joint Tenderness Skin: Denies: Rash, Wounds Neurological: Denies: Numbness, Tingling, Focal weakness Psychiatric: Denies: Anxiety, Depression, Homicidal Ideations, Suicidal Ideations Hematologic/ Lymphatic: Denies: Easy Bruising, Easy Bleeding - Physical Exam Vitals/I&O's: Vital Signs Temp Pulse Resp BP Pulse Ox 99.0 F 109 H 27 H 129/86 H 95 07/18/19 14:25 07/18/19 14:25 07/18/19 14:25 07/18/19 14:25 07/18/19 14:25 Oxygen Delivery Method Room Air Weight: 191 lb Body Mass Index (BMI) 29.0 Intake and Output for Last 24 Hours 07/16/19 07/17/19 07/18/19 23:59 23:59 23:59 Intake Total 666.67 / 666.67 Balance 666.67 / 666.67 General: Alert, Oriented x3, Cooperative, - - Very hard of hearing HEENT: Atraumatic, PERRLA, EOMI, Normocephalic Neck: Supple, No JVD, Negative Carotid Bruits Lungs: Clear to auscultation, Normal air movement Cardiovascular: Irregular Rate, Tachycardic Abdomen: Soft, Non-Distended, Obese, Tender - RUQ, - - Previously healed incision noted at the region where the umbilius should be. Extremities: No edema, Capillary Refill Less than 3 Seconds Skin: No rashes, No breakdown Musculoskeletal: No Tenderness to Palpation of Joints or Extremities Neurological: Neuro grossly intact Psych/Mental Status: Normal Affect, Appropriate Laboratory Results 07/18/19 12:00: WBC 20.2 H, RBC 5.22, Hgb 16.2, Hct 46.8, MCV 89.7, MCH 31.0, MCHC 34.6, RDW Std Deviation 42.6, RDW Coeff of Matteo 13.0, Plt Count 173, MPV 11.3, Immature Gran % (Auto) 1.000 H, Neut % (Auto) 87.5 H, Lymph % (Auto) 2.7 L, [place] % (Auto) 8.7, Eos % (Auto) 0.0, Baso % (Auto) 0.1, Absolute Neuts (auto) 17.6 H, Absolute Lymphs (auto) 0.55 L, Nucleated RBC % 0, Differential Comment SCANNED, Diff Path Review January07/18/19 12:00: PT 29.2 H, INR 2.8 07/18/19 12:00: Sodium 131 L, Potassium 3.8, Chloride 98, Carbon Dioxide 25.0, Anion Gap 8, BUN 17, Creatinine 1.16, Estim Creat Clear Calc 45.86, Est GFR (MDRD) Af Amer 77, Est GFR (MDRD) Non-Af 64, BUN/Creatinine Ratio 14.7, Glucose 189 H, Calcium 8.4 L, Total Bilirubin 1.60 H, AST 36, ALT 93 H, Alkaline Phosphatase 58, Total Protein 7.2, Albumin 3.7, Globulin 3.5, Albumin/Globulin Ratio 1.1, Lipase 1750 H 07/18/19 12:00: Lactic Acid 2.4 H Current Medications Sodium Chloride () 1,000 mls @ 250 mls/hr IV .Q4H MEMO Last Infusion: 07/18/19 14:28 Dose: 0 mls/hr Documented by: Sodium Chloride () 500 mls @ 1,000 mls/hr IV .Q30M MEMO Stop: 07/18/19 14:44 Last Admin: 07/18/19 14:28 Dose: 1,000 mls/hr Documented by: Assessment/Plan I have been consulted in conjunction with Dr. Gleason. Impression: Acute gallstone pancreatitis. Plan: Patient was discussed with Dr. Gleason. Dr. Gleason will plan to perform a laparoscopic cholecystectomy with intraoperative cholangiogram on . Procedure details, risks and benefits have been explained. Patient and his spouse have had the opportunity to ask and have questions answered. Patient verbally understands and agrees to proceed. Hold Coumadin until after the procedure. Recommend Cardiology consult to evaluate patient for A fib and cardiac clearance. Hospitalist to administer Vitamin K to assist with lowering INR. Thank you for allowing us to participate in this patient's care. Code Visit Office Visits / Consults: [id number] IP Consult L3
[2019-07-18 15:04] LABS: Magnesium 1.8 mg/dL (1.6-2.6)
[2019-07-18] MEDS: 0.9% Normal Saline 1,000 ML 999 ML IV ×2 (15:18→17:01)
[2019-07-18 16:11] LABS: Reflex Lactate? Y
[2019-07-18] MEDS: Famotidine 200 MG/20 ML MDV 20 MG in 0.9% Normal Saline (Pres. free 8 ML 300 MG IV ×2 (16:17→21:12)
[2019-07-18 17:07] LABS: Lactic Acid 1.6 mmol/L (0.4-2.0)
[2019-07-18] MEDS: 0.9% Normal Saline 1,000 ML 150 ML IV (18:15)
[2019-07-18 18:41] LABS: Bedside Glucose 131 mg/dL (70-110)
--- NOTE | 2019-07-18 19:35 | PCM.CONS.C ---
Problem List (1) Atrial fibrillation with RVR Status: Acute (2) HLD (hyperlipidemia) Status: Chronic Qualifiers: Hyperlipidemia type: unspecified Qualified Code(s): E78.5 - Hyperlipidemia, unspecified (3) HTN (hypertension) Status: Chronic Qualifiers: Hypertension type: essential hypertension Qualified Code(s): I10 - Essential (primary) hypertension (4) Diabetes Status: Chronic Qualifiers: Diabetes mellitus type: type 2 Diabetes mellitus residential insulin use: without terminal computer operator use Diabetes mellitus complication status: with other specified complication Qualified Code(s): E11.69 - Type 2 diabetes mellitus with other specified complication (5) Acute calculous cholecystitis Status: Acute (6) Acute gallstone pancreatitis Status: Acute Reason for Consult Date of Consultation: 07/18/19 History of Present Illness: The patient is a 84 year [id number] white male with a past cardiovascular history which is included atrial fibrillation who presents for evaluation of acute cholecystitis/gallstone related pancreatitis pending surgical evaluation and care. He states that he had been doing well until recently when he developed abdominal discomfort and has not been able to take any oral intake. He presented to the emergency department this day for further evaluation. Status post evaluation he was noted to have his continued atrial fibrillation. However he was diagnosed with the aforementioned gastrointestinal disease process. He was recommended for further inpatient evaluation care. He has been undergoing evaluation by internal medicine and general surgery. He has denied any ongoing chest discomfort or difficulty breathing suspicious for angina pectoris or CHF. There has been no near syncope or syncope. He states his atrial fibrillation had not been bothersome to him. He had remained on his anticoagulant therapy. His INR is therapeutic. His ECG performed demonstrated atrial fibrillation with a rapid ventricular response with nonspecific ST and T wave abnormality. [] Past Medical History Allergies/Adverse Reactions: Allergies metformin Allergy (Severe, Verified 07/18/19 14:54) kidneys shut down Home Medications: Ambulatory Orders Medication Instructions Recorded Cholecalciferol (Vitamin D3) 2,000 unit PO DAILY 07/18/19 [Vitamin D3] Docusate Sodium [Dulcolax Stool 100 mg PO QHS 07/18/19 Softener] Finasteride 5 mg PO QHS 07/18/19 Warfarin Sodium 7.5 mg PO SUTUTHSA 07/18/19 Warfarin Sodium 10 mg PO MOWEFR 07/18/19 Past Medical History (Chronic Problems): Chronic Problems (Last Updated 06/27/18 @ 14:05 by Nati Mendoza) History stage IV bladder cancer (Chronic) HTN (hypertension) (Chronic) HLD (hyperlipidemia) (Chronic) Diabetes (Chronic) Longstanding persistent atrial fibrillation (Chronic) Surgical History: - - Transurethral bladder cancer resection, small bowel partial resection, cataract surgery. Psychiatric History: No pertinent psych hx - *Family History Maternal Family History: Family History (Last Updated 06/27/18 @ 13:34 by Nati Mendoza) Mother Cancer Brother Cancer Sister Cancer Sister Cancer Brother Myocardial infarction History Items: Cancer Paternal Family History: Family History (Last Updated 06/27/18 @ 13:34 by Nati Mendoza) Mother Cancer Brother Cancer Sister Cancer Sister Cancer Brother Myocardial infarction History Items: Heart Disease Lives: Spouse/ Significant Other Smoking Status: Former smoker - Patient quit cigarette tobacco usage approximate 4 years prior. Tobacco Use: Non-smoker Alcohol: Rare Drugs: None Review of Systems - Review of Systems General: Reports: Decreased Appetite. Denies: Fever, Fatigue, Night Sweats Cardiovascular: Denies: Chest Discomfort, Shortness of Breath, Orthopnea, PND, Peripheral Edema, Palpitations, Lightheadedness, Dizziness, Near Syncope, Syncope Respiratory: Denies: Cough, Sputum Production, Hemoptysis Gastrointestinal: Reports: Abdominal Discomfort. Denies: Hematemesis, Hematochezia, Melena Genitourinary: Denies: Dysuria, Hematuria Skin: Denies: Rash Subjectve: This is an 84-year-old white male who appears to be resting comfortably at the moment in no acute distress. Objective: Vital Signs Temp Pulse Resp BP Pulse Ox 98.0 F 103 H 20 H 145/73 H 98 07/18/19 15:37 07/18/19 15:50 07/18/19 15:37 07/18/19 15:37 07/18/19 15:37 Oxygen Delivery Method Room Air Weight: 186 lb 9.6 oz Body Mass Index (BMI) 28.3 Intake and Output for Last 24 Hours 07/16/19 07/17/19 07/18/19 23:59 23:59 23:59 Intake Total 3227.17 / 3227.17 Output Total 400 / 400 Balance 2827.17 / 2827.17 General: Awake, Alert, Oriented x 3, Cooperative, No Acute Distress HEENT: Atraumatic, Normocephalic, PERRL, EOMI, Sclera Non Icteric Oral: Moist Mucosa Neck: Supple, Good ROM, No JVD Lungs: Clear to auscultation Cardiovascular: Irregular Rhythm, Normal S1, Normal S2 Abdomen: Hypoactive Bowel Sounds Extremities: No edema Neurological: No Focal Motor or Sensory Deficit Psych/Mental Status: Appropriate 07/18/19 12:00: WBC 20.2 H, RBC 5.22, Hgb 16.2, Hct 46.8, MCV 89.7, MCH 31.0, MCHC 34.6, Plt Count 173, MPV 11.3, Immature Gran % (Auto) 1.000 H, Neut % (Auto) 87.5 H, Lymph % (Auto) 2.7 L, [place] % (Auto) 8.7, Eos % (Auto) 0.0, Baso % (Auto) 0.1, Absolute Neuts (auto) 17.6 H, Nucleated RBC % 0 07/18/19 12:00: PT 29.2 H, INR 2.8 07/18/19 12:00: Sodium 131 L, Potassium 3.8, Chloride 98, Carbon Dioxide 25.0, Anion Gap 8, BUN 17, Creatinine 1.16, Est GFR (MDRD) Af Amer 77, Est GFR (MDRD) Non-Af 64, BUN/Creatinine Ratio 14.7, Glucose 189 H, Calcium 8.4 L, Total Bilirubin 1.60 H 07/18/19 12:00: Lactic Acid 2.4 H 07/18/19 12:00: Magnesium 1.8 07/18/19 12:00: Troponin I < 0.015 07/18/19 15:20: Troponin I < 0.015 07/18/19 16:30: Lactic Acid 1.6 07/18/19 18:17: Troponin I < 0.015 Rhythm: Atrial fibrillation EKG: As noted above ECHO: 06-13-2018: [facility]: Final impression: Technically limited study; left ventricle normal with an LVEF of 60 to 65%; decreased diastolic compliance; pulmonary hypertension; left atrium mildly dilated; right atrium mildly dilated; mild MR; mild TR Stress Test: Stress Test Report : 11/02/2017 Procedure: Pharmacologic stress nuclear imaging study Indications: Shortness of breath/dyspnea Consent: Per the patient Procedure: The patient underwent pharmacologic (Regadenoson) evaluation with a peak heart rate of 99 bpm (71% predicted maximal heart rate) with a peak blood pressure 160/82 mmHg. The baseline ECG demonstrated atrial fibrillation. The peak pharmacologic ECG demonstrated no obvious ECG changes. There were no obvious additional cardiac dysrhythmias pretest, during pharmacologic infusion, or recovery. There was no report of chest discomfort during pharmacologic infusion or recovery. The examination was discontinued secondary to completion of protocol. Impression: 1. Pharmacologic (Regadenoson) evaluation 2. Peak pharmacologic ECG with no obvious ECG changes 3. Nuclear images pending Myocardial perfusion imaging study: Technique: The patient was injected with 10.8 mCi of technetium 99m Cardiolite and subsequently rest SPECT Cardiolite nuclear imaging was obtained in the horizontal long, vertical long, and short axis views. The patient underwent pharmacologic (Regadenoson) evaluation with a peak heart rate of 99 bpm (71% predicted maximal heart rate) with a peak blood pressure 160/82 mmHg. The patient was injected with 34.0 mCi of technetium 99m Cardiolite and subsequently stress SPECT Cardiolite nuclear imaging was obtained in the horizontal long, vertical long, and short axis views. A gated Cardiolite study at peak stress was obtained. Interpretation: Rest and stress SPECT Cardiolite nuclear imaging status post realignment, normalization, and attenuation correction demonstrates the appearance of relative uniform tracer uptake and myocardial perfusion appearing within normal limits. There is end systolic thickening and brightening. The gated Cardiolite study demonstrates myocardial thickening and inward wall motion. The reported LVEF is 76%. Impression: 1. Rest and stress SPECT Cardiolite nuclear imaging demonstrating relative uniform tracer uptake and myocardial perfusion appearing within normal limits. 2. The gated Cardiolite study reports an LVEF of 76%. Assessment/Plan 1. Atrial fibrillation with rapid ventricular response The patient has a history of atrial fibrillation. He has not tolerated rate limiting medication such as beta-blockers in the past. He has remained on anticoagulant therapy. At the present time his rate is elevated possibly secondary to his underlying acute gastrointestinal related issues. He may need rate limiting therapy at this time. His anticoagulation status is being reversed so that he may proceed with his upcoming surgical procedure. He does not appear to have any other acute cardiovascular symptoms. His most recent noninvasive studies are as noted above. 2. Hyperlipidemia He will continue risk factor evaluation care as deemed appropriate. 3. Hypertension He will continue medical management as deemed appropriate. 4. Diabetes mellitus He will continue evaluation care per internal medicine. 5. Acute cholecystitis/gallstone pancreatitis He is being evaluated by internal medicine and general surgery. He is tenably scheduled for upcoming laparoscopic cholecystectomy. From a cardiovascular standpoint, at the present time, he will continue to be monitored. His medications will be adjusted to assist with his rate control, etc. His anticoagulation is being held in order to allow his anticoagulation status to normalize so that he can proceed with his general surgical procedure. Based upon his otherwise stable clinical cardiovascular course, his previous noninvasive studies/results, it does not appear that he requires further cardiac diagnostic studies or therapeutic intervention at this time. He will need continued cardiovascular monitoring during and following his surgical procedure. The patient's case was discussed and reviewed with Dr. Cely Oviedo. This note was generated using a voice recognition system and there may be incorrect words, spelling or punctuation that were not noted when reviewing the office note prior to saving.
[2019-07-18] MEDS: Finasteride 5 MG Tablet PO (21:12)
[2019-07-18] MEDS: 0.9% Saline Lock 10 ML Syringe IV (21:23)
[2019-07-19] VITALS (31 sets, daily range): BP systolic 98–124; BP diastolic 43–84; PULSE 65–97; RESP 16–26; TEMP 36.6–37.5; O2SAT 89–95
[2019-07-19 00:40] LABS: Bedside Glucose 134 mg/dL (70-110)
[2019-07-19] MEDS: 0.9% Normal Saline 1,000 ML 150 ML IV ×2 (05:06→17:11)
[2019-07-19 05:45] LABS: Absolute Lymphocyte Count 0.69 X10^3/uL (0.83-4.51); Absolute Neutrophil Count 14.9 X10^3/uL (2.0-7.7); Basophil# 0.03 X10^3/uL; Basophil% 0.2 % (0-1); Eosinophil# 0.09 X10^3/uL; Eosinophils% 0.5 % (0-5); Hematocrit 39.9 % (40-54); Hemoglobin 13.7 g/dL (13.0-16.5); Lymphocyte # 0.69 X10^3/ul (4.0); Lymphocyte % 3.9 % (19-41); Mean Corp Hgb Conc 34.3 g/dL (32-36); Mean Corpuscular Hgb 31.3 pg (27.0-32.0); Mean Corpuscular Volume 91.1 fL (80-94); Mean Platelet Vol. 11.3 fl (6.2-12.0); Monocyte# 1.64 X10^3/uL; Monocyte% 9.2 % (0-10); NRBC Flagged by Analyzer 0 % (0-5); Neutrophil # 14.94 X10^3/uL (2.7-7.7); Neutrophil % 83.9 % (47-70); POSITIVE DIFFERENTIAL YES; POSITIVE MORPHOLOGY YES; Platelet Count 152 K/mm3 (150-450); RBC Distribution Width CV 13.2 % (11.6-14.6); RBC Distribution Width SD 44.5 fl (35.1-43.9); Red Blood Count 4.38 M/mm3 (4.6-6.2); White Blood Count 17.8 K/mm3 (4.4-11.0)
[2019-07-19 06:00] LABS: International Normalized Ratio 1.6; Prothrombin Time (Protime)PT. 19.2 SECONDS (11.7-14.9)
[2019-07-19 06:03] LABS: Differential Indicated SCAN CRITERIA MET
[2019-07-19 06:14] LABS: ALB/GLOB Ratio 0.8 RATIO (0.9-2.4); AST(SGOT) 24 U/L (15-37); Alanine Aminotransfer ALT/SGPT 58 U/L (16-61); Albumin, Serum 2.6 g/dL (3.2-5.0); Alkaline Phosphatase 51 U/L (45-117); Anion Gap 10 (5-15); BUN 16 mg/dL (7-18); BUN/Creat Ratio 16.6 RATIO (10-20); Calcium,Total 7.4 mg/dL (8.5-10.1); Chloride 108 mmol/L (98-107); Creatinine, Serum 0.96 mg/dL (0.70-1.30); EST Glomerular Filtration Rate 79 mL/min (>60); Est Glom Filt Rate - Afr Amer 95 mL/min (>60); Estimated Creatinine Clearance 55.42 ml/min; Globulin 3.4 g/dL (2.2-4.2); Glucose 138 mg/dL (74-106); Lipase 550 U/L (73-393); Potassium 3.6 mmol/L (3.5-5.1); Sodium Level 140 mmol/L (136-145)
[2019-07-19 06:41] LABS: Bedside Glucose 143 mg/dL (70-110)
--- NOTE | 2019-07-19 08:27 | PN.SURG_ITS ---
Patient Problems: Active and Suspected Problems (Last Reviewed 07/19/19 @ 08:17 by Sandrine Gaytan PA-C) Acute calculous cholecystitis (Acute) Acute gallstone pancreatitis (Acute) Atrial fibrillation with RVR (Acute) Severe sepsis (Acute) Anticoagulant long-term use (Acute) Subjective: Patient evaluated this morning resting comfortably in bed. Patient notes abdominal pain has improved. He denies nausea, vomiting. - Physical Exam Vitals/I&O's: Vital Signs Temp Pulse Resp BP Pulse Ox 99.2 F H 86 20 H 116/60 89 07/19/19 08:15 07/19/19 08:15 07/19/19 08:15 07/19/19 08:15 07/19/19 08:15 Oxygen Delivery Method Room Air Weight: 186 lb 9.6 oz Body Mass Index (BMI) 28.3 Intake and Output for Last 24 Hours 07/17/19 07/18/19 07/19/19 23:59 23:59 23:59 Intake Total 3739.67 / 3739.67 692.5 / 692.5 Output Total 725 / 725 400 / 400 Balance 3014.67 / 3014.67 292.5 / 292.5 General: Alert, Oriented x3, Cooperative Abdomen: Soft, Non-Distended, Obese, Tender - RUQ. No guarding or rebound tenderness Laboratory Results 07/18/19 12:00: WBC 20.2 H, RBC 5.22, Hgb 16.2, Hct 46.8, MCV 89.7, MCH 31.0, MCHC 34.6, RDW Std Deviation 42.6, RDW Coeff of Matteo 13.0, Plt Count 173, MPV 11.3, Immature Gran % (Auto) 1.000 H, Neut % (Auto) 87.5 H, Lymph % (Auto) 2.7 L , [place] % (Auto) 8.7, Eos % (Auto) 0.0, Baso % (Auto) 0.1, Absolute Neuts (auto) 17.6 H, Absolute Lymphs (auto) 0.55 L, Nucleated RBC % 0, Differential Comment SCANNED, Diff Path Review January07/18/19 12:00: PT 29.2 H, INR 2.8 07/18/19 12:00: Sodium 131 L, Potassium 3.8, Chloride 98, Carbon Dioxide 25.0, Anion Gap 8, BUN 17, Creatinine 1.16, Estim Creat Clear Calc 45.86, Est GFR (MDRD) Af Amer 77, Est GFR (MDRD) Non-Af 64, BUN/Creatinine Ratio 14.7, Glucose 189 H, Calcium 8.4 L, Total Bilirubin 1.60 H, AST 36, ALT 93 H, Alkaline Phosphatase 58, Total Protein 7.2, Albumin 3.7, Globulin 3.5, Albumin/Globulin Ratio 1.1, Lipase 1750 H 07/18/19 12:00: Lactic Acid 2.4 H 07/18/19 12:00: Magnesium 1.8 07/18/19 12:00: Troponin I < 0.015 07/18/19 15:20: Troponin I < 0.015 07/18/19 16:30: Lactic Acid 1.6 07/18/19 18:17: Troponin I < 0.015 07/18/19 18:18: POC Glucose 131 H 07/19/19 00:33: POC Glucose 134 H 07/19/19 05:25: WBC 17.8 H, RBC 4.38 L, Hgb 13.7, Hct 39.9 L, MCV 91.1, MCH 31.3, MCHC 34.3, RDW Std Deviation 44.5 H, RDW Coeff of Matteo 13.2, Plt Count 152, MPV 11.3, Immature Gran % (Auto) 2.300 H, Neut % (Auto) 83.9 H, Lymph % (Auto) 3.9 L, [place] % (Auto) 9.2, Eos % (Auto) 0.5, Baso % (Auto) 0.2, Absolute Neuts (auto) 14.9 H, Absolute Lymphs (auto) 0.69 L, Nucleated RBC % 0, Diff Path Review January07/19/19 05:25: PT 19.2 H, INR 1.6 07/19/19 05:25: Sodium 140, Potassium 3.6, Chloride 108 H, Carbon Dioxide 22.0, Anion Gap 10, BUN 16, Creatinine 0.96, Estim Creat Clear Calc 55.42, Est GFR (MDRD) Af Amer 95, Est GFR (MDRD) Non-Af 79, BUN/Creatinine Ratio 16.6, Glucose 138 H, Calcium 7.4 L, Total Bilirubin 1.80 H, AST 24, ALT 58, Alkaline Phosphatase 51, Total Protein 6.0 L, Albumin 2.6 L, Globulin 3.4, Albumin/Globulin Ratio 0.8 L, Lipase 550 H 07/19/19 05:48: POC Glucose 143 H Current Medications Acetaminophen (Tylenol) 650 mg PO Q6H PRN PRN PRN Reason: Non-cardiac pain (mod-severe) Hydrocodone Bitart/Acetaminophen (Jeddo 5mg-325mg) 1 - 2 tablet PO Q4H PRN PRN PRN Reason: Pain Score 4-10/10 Al Hydroxide/Mg Hydroxide (Mylanta Ii) 15 - 30 ml PO Q4H PRN PRN PRN Reason: INDIGESTION Albuterol Sulfate (Ventolin Aerosols) 2.5 mg INHALATION Q2H PRN PRN PRN Reason: dyspnea, wheezing Dextrose (D50w Syringe) 0 gm IV X1 PRN; Protocol PRN Reason: Hypoglycemia Finasteride (Proscar) 5 mg PO QHS [facility] Last Admin: 07/18/19 21:12 Dose: 5 mg Documented by: Glucagon () 1 mg IM .X1 PRN PRN Reason: Hypoglycemia Hydralazine HCl (Apresoline Iv) 10 mg IV Q4H PRN PRN PRN Reason: SBP > 160 Sodium Chloride () 1,000 mls @ 150 mls/hr IV .Q6H40M [facility] Last Infusion: 07/19/19 05:17 Dose: 0 mls/hr Documented by: Piperacillin Sod/Tazobactam (Sod 3.375 gm/ Sodium Chloride) 50 mls @ 12.5 mls/hr IV Q8 [facility] Last Admin: 07/19/19 05:10 Dose: 12.5 mls/hr Documented by: Famotidine 20 mg/ Sodium (Chloride) 10 mls @ 300 mls/hr IV Q12 [facility] Last Infusion: 07/18/19 21:25 Dose: Infused Documented by: Diltiazem HCl 125 mg/ Dextrose 125 mls @ 5 mls/hr IV .Q25H [facility]; Protocol Last Titration: 07/19/19 06:00 Dose: 10 mg/hr, 10 mls/hr Documented by: Influenza Virus Vaccine Quadrival (Flucelvax /Fluzone ) 0.5 ml IM .ONCE ONE Stop: 07/19/19 10:01 Insulin Human Lispro (Humalog Kwikpen (Bkc)) 0 unit SC Q6 [facility]; Protocol Last Admin: 07/19/19 05:49 Dose: Not Given Documented by: Magnesium Hydroxide (Milk Of Magnesia) 30 ml PO DAILY PRN PRN Reason: Constipation Morphine Sulfate () 1 - 2 mg IV Q4H PRN PRN PRN Reason: Pain Score 1-10/10 Nitroglycerin (Nitrostat) 0.4 mg SUBLINGUAL Q5M PRN PRN Reason: CARDIAC/CHEST PAIN Ondansetron HCl (Zofran) 4 mg IV Q8H PRN PRN PRN Reason: NAUSEA/VOMITING Sodium Chloride () 10 - 40 ml IV UD PRN PRN Reason: SALINE FLUSH Last Admin: 07/18/19 21:23 Dose: 15 ml Documented by: Medical Necessity - Tobacco Use Smoking Status: Former smoker - Patient quit cigarette tobacco usage approximate 4 years prior. Tobacco Use: Non-smoker Assessment/Plan All Active Problems (Last Reviewed 07/19/19 @ 08:17 by Sandrine Gaytan PA-C) SMA occlusion (Acute) Acute calculous cholecystitis (Acute) Acute gallstone pancreatitis (Acute) Atrial fibrillation with RVR (Acute) Severe sepsis (Acute) Anticoagulant long-term use (Acute) I am following this patient in conjunction with Dr. Gleason Acute gallstone pancreatitis Labs reviewed Continue with breezy celi tomorrow with Dr. Gleason Appreciate Hospitalist and systems coordinator care We will continue to monitor this patient Code Visit Inpatient E&M: 91068 [facility] Hosp L1
[2019-07-19] MEDS: Famotidine 200 MG/20 ML MDV 20 MG in 0.9% Normal Saline (Pres. free 8 ML 300 MG IV ×2 (10:42→21:16)
[2019-07-19 12:31] LABS: Bedside Glucose 134 mg/dL (70-110)
--- NOTE | 2019-07-19 12:35 | CHAPLAIN ---
Type of Pastoral Visit _x_ Initial Visit ___ Follow-up Visit ___ On-call Visit ___ General Patient Visit ___ Spiritual Assessment ___ Family Conference ___ Bereavement ___ Rapid Response ___ Code Blue ___ Other (describe below) Pastoral Care Referral From _x__ Patient ___ Family ___ Nurse ___ Physician ___ Cross Enterprise Integrator ___ Manufacturing Director ___ Other (describe below) Sacrament/Intervention _x__ Active listening ___ Anointing ___ Worship ___ Bereavement ___ Communion ___ Miriam exploration ___ ___ Life review _x__ Prayer ___ Reconciliation ___ Sacrament of Sick _x__ Supportive presence ___ Wedding ___ Other (describe below) Pastoral Comments
--- NOTE | 2019-07-19 12:40 | CASEMGMT ---
RN CM Assessment Presentation: Gallstone Pancreatitis Intro role of CM and purpose of RN CM assessment. Demographics, PCP and Pharmacy verified. PCP: Dr. Matilda Lim Specialists: Dr. Perez Preferred Pharmacy: [facility] Insurance: [facility] Prescription Benefit: yes LNOK: Living Arrangements: Lives independently in one story home, two steps in. Pt states he has been independent with ADL. No care needs identified. Transportation: Drives DME: cane, walker. States he does not use ambulatory DME at this time. Denies use of Home Oxygen or Cpap HHC: none Patient DC goals: Home DC PLAN: Home. No care needs identified at this time. Pt may benefit from PT/OT after surgery for evaluation.Not ordered at this time. Marline SANCHEZN RN ACM
[2019-07-19 13:25] LABS: Pathologist Review Reviewed
[2019-07-19 13:31] LABS: Pathologist Review Reviewed
--- NOTE | 2019-07-19 14:49 | PN_ITS ---
Patient Problems: Active and Suspected Problems (Last Reviewed 07/19/19 @ 08:17 by Sandrine Gaytan PA-C) Acute calculous cholecystitis (Acute) Acute gallstone pancreatitis (Acute) Atrial fibrillation with RVR (Acute) Severe sepsis (Acute) Anticoagulant long-term use (Acute) Subjective: Patient complain of abdominal pain. The patient was admitted with abdominal pain, initially bilateral lower quadrant, constant worse with oral intake for last 3 days prior to admission. Patient also complained of subjective fever and chills. Since admission, abdominal pain has improved. Low-grade fever T-max 99.6 last night. Mild tachypnea respiratory rate 26/min. No hypotension. Vitals/I&O's: Vital Signs Temp Pulse Resp BP Pulse Ox 99.0 F 81 22 H 121/84 H 92 07/19/19 13:52 07/19/19 14:00 07/19/19 14:00 07/19/19 14:00 07/19/19 14:00 Oxygen Delivery Method Room Air Weight: 186 lb 9.588 oz Body Mass Index (BMI) 28.3 Intake and Output for Last 24 Hours 07/17/19 07/18/19 07/19/19 23:59 23:59 23:59 Intake Total 3739.67 / 3739.67 832.50 / 832.50 Output Total 725 / 725 400 / 400 Balance 3014.67 / 3014.67 432.50 / 432.50 General: Alert, Oriented x3, Cooperative HEENT: Atraumatic, PERRLA, EOMI, Normocephalic Neck: Supple, No JVD, Negative Carotid Bruits Lungs: Clear to auscultation, No rhonchi, No wheeze, No rales, Diminished Cardiovascular: Regular rate, Regular Rhythm, Normal S1, Normal S2, No murmurs Abdomen: Bowel Sounds Present, Soft, Tender - Tenderness present over mid abdomen region. Extremities: No edema, Capillary Refill Less than 3 Seconds Skin: No rashes, No breakdown Musculoskeletal: No Tenderness to Palpation of Joints or Extremities, Arthritic Changes Neurological: Cranial nerves II-XII grossly intact, Deep Tendon Reflexes 2+/4 and Symmetrical, Neuro grossly intact Psych/Mental Status: Normal Affect, Appropriate Laboratory Results 07/18/19 12:00: Diff Path Review Reviewed 07/18/19 12:00: Magnesium 1.8 11/05/19 12:00: Troponin I < 0.015 07/18/19 15:20: Troponin I < 0.015 07/18/19 16:30: Lactic Acid 1.6 07/18/19 18:17: Troponin I < 0.015 07/18/19 18:18: POC Glucose 131 H 07/19/19 00:33: POC Glucose 134 H 07/19/19 05:25: WBC 17.8 H, RBC 4.38 L, Hgb 13.7, Hct 39.9 L, MCV 91.1, MCH 31.3, MCHC 34.3, RDW Std Deviation 44.5 H, RDW Coeff of Matteo 13.2, Plt Count 152, MPV 11.3, Immature Gran % (Auto) 2.300 H, Neut % (Auto) 83.9 H, Lymph % (Auto) 3.9 L, [place] % (Auto) 9.2, Eos % (Auto) 0.5, Baso % (Auto) 0.2, Absolute Neuts (auto) 14.9 H, Absolute Lymphs (auto) 0.69 L, Nucleated RBC % 0, Diff Path Review Reviewed 07/19/19 05:25: PT 19.2 H, INR 1.6 07/19/19 05:25: Sodium 140, Potassium 3.6, Chloride 108 H, Carbon Dioxide 22.0, Anion Gap 10, BUN 16, Creatinine 0.96, Estim Creat Clear Calc 55.42, Est GFR (MDRD) Af Amer 95, Est GFR (MDRD) Non-Af 79, BUN/Creatinine Ratio 16.6, Glucose 138 H, Calcium 7.4 L, Total Bilirubin 1.80 H, AST 24, ALT 58, Alkaline P hosphatase 51, Total Protein 6.0 L, Albumin 2.6 L, Globulin 3.4, Albumin/Globulin Ratio 0.8 L, Lipase 550 H 07/19/19 05:48: POC Glucose 143 H 07/19/19 12:23: POC Glucose 134 H Current Medications Acetaminophen (Tylenol) 650 mg PO Q6H PRN PRN PRN Reason: Non-cardiac pain (mod-severe) Hydrocodone Bitart/Acetaminophen (Pine 5mg-325mg) 1 - 2 tablet PO Q4H PRN PRN PRN Reason: Pain Score 4-10/10 Al Hydroxide/Mg Hydroxide (Mylanta Ii) 15 - 30 ml PO Q4H PRN PRN PRN Reason: INDIGESTION Albuterol Sulfate (Ventolin Aerosols) 2.5 mg INHALATION Q2H PRN PRN PRN Reason: dyspnea, wheezing Dextrose (D50w Syringe) 0 gm IV X1 PRN; Protocol PRN Reason: Hypoglycemia Finasteride (Proscar) 5 mg PO QHS [facility] Last Admin: 07/18/19 21:12 Dose: 5 mg Documented by: Glucagon () 1 mg IM .X1 PRN PRN Reason: Hypoglycemia Hydralazine HCl (Apresoline Iv) 10 mg IV Q4H PRN PRN PRN Reason: SBP > 160 Sodium Chloride () 1,000 mls @ 150 mls/hr IV .Q6H40M [facility] Last Admin: 07/19/19 14:43 Dose: Not Given Documented by: Piperacillin Sod/Tazobactam (Sod 3.375 gm/ Sodium Chloride) 50 mls @ 12.5 mls/hr IV Q8 [facility] Last Admin: 07/19/19 14:09 Dose: 12.5 mls/hr Documented by: Famotidine 20 mg/ Sodium (Chloride) 10 mls @ 300 mls/hr IV Q12 [facility] Last Infusion: 07/19/19 11:57 Dose: Infused Documented by: Diltiazem HCl 125 mg/ Dextrose 125 mls @ 5 mls/hr IV .Q25H [facility]; Protocol Last Titration: 07/19/19 14:00 Dose: 10 mg/hr, 10 mls/hr Documented by: Cefotetan Disodium 2 gm/ (Sodium Chloride) 100 mls @ 200 mls/hr IV SEND TO OR W/PATIENT ONE Stop: 07/20/19 06:59 Insulin Human Lispro (Humalog Kwikpen (Bkc)) 0 unit SC Q6 [facility]; Protocol Last Admin: 07/19/19 12:47 Dose: Not Given Documented by: Magnesium Hydroxide (Milk Of Magnesia) 30 ml PO DAILY PRN PRN Reason: Constipation Morphine Sulfate () 1 - 2 mg IV Q4H PRN PRN PRN Reason: Pain Score 1-10/10 Nitroglycerin (Nitrostat) 0.4 mg SUBLINGUAL Q5M PRN PRN Reason: CARDIAC/CHEST PAIN Ondansetron HCl (Zofran) 4 mg IV Q8H PRN PRN PRN Reason: NAUSEA/VOMITING Sodium Chloride () 10 - 40 ml IV UD PRN PRN Reason: SALINE FLUSH Last Admin: 07/18/19 21:23 Dose: 15 ml Documented by: ADORE Vital Signs/Narrative: Vital Signs Temp Pulse Resp BP BP Pulse Ox 07/19/19 14:00 81 22 H 121/84 H 92 07/19/19 13:52 99.0 F 65 22 H 113/57 L 93 07/19/19 13:00 72 26 H 117/57 L 93 07/19/19 12:34 71 07/19/19 12:00 97.9 F 80 21 H 113/57 L 92 07/19/19 11:00 99.1 F 78 22 H 115/67 93 Medical Necessity - Tobacco Use Smoking Status: Former smoker - Patient quit cigarette tobacco usage approximate 4 years prior. 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 Right upper quadrant sonogram was done and shows multiple small gallstones and sludge within the GB. Thickened gallbladder lumen with a small amount of pericholecystic fluid. patient had CT abdomen and pelvis with IV contrast on June 12, 2018 for diffuse abdominal pain which is reported as normal gallbladder, extrahepatic biliary system, normal pancreas and spleen. (1) Severe Sepsis secondary to Acute Cholelithiasis w/ Acute Gallstone pancreatitis: Admitting lipase was 1750. Improved to 550. Abdominal pain has improved Patient is being admitted to PCU. Patient was well resuscitated with IV fluid normal saline bolus. Was made n.p.o. initially and then started on clear liquid, IV Zosyn, symptomatic and symptomatic management for nausea, vomiting and abdominal pain. Patient leukocytosis has improved. There is 17.8 thousand with neutrophils 84%. LFT shows improvement in ALT from 93-58. Total bili 1.8. Alkaline phosphatase normal. Surgery was consulted. Plan for cholecystectomy on . (2) Chronic atrial fibrillation with RVR, most likely secondary to sepsis: EKG in ED w/ atrial fibrillation w/ RVR. Patient was seen by [facility]. Serial troponins normal. Heart rate controlled, in 60s. Magnesium normal. 06/13/18 ECHO reported normal LV size and systolic function, no regional wall motion abnormalities, EF 60 to 65%, normal LV wall thickness, possible grade 3 diastolic dysfunction. 10/2017 Stress testing unremarkable. Coumadin is on hold. Vitamin K given. Repeat INR 1.6. (3) Hypertension: Blood pressures controlled. (4) Hyperlipidemia: Fasting profile tomorrow a.m. (5) Diabetes mellitus type II: Diet controlled, not on regimen, NPO status, q 6 hour accu checks w/ ISS. (6) Hx Bladder CA: s/p Transurethral resection, remission. (7) BPH: Maintain on home proscar regimen. (8) Hx Mesenteric Ischemia: s/p partial SBO. (9) GERD: IV Famotidine. (10) DVT Prophylaxis: SCDs, holding coumadin w/ reversal, INR trending. Clinical Impression(s) from Imaging Studies Gallbladder Ultrasound 07/18/19 11:53 IMPRESSION: Multiple small gallstones and sludge within the gallbladder lumen. Thickened gallbladder wall. Small amount of pericholecystic fluid. Laboratory Results 07/18/19 12:00: Diff Path Review Reviewed 07/18/19 12:00: Troponin I < 0.015 07/18/19 15:20: Troponin I < 0.015 07/18/19 16:30: Lactic Acid 1.6 07/18/19 18:17: Troponin I < 0.015 07/18/19 18:18: POC Glucose 131 H 07/19/19 00:33: POC Glucose 134 H 07/19/19 05:25: WBC 17.8 H, RBC 4.38 L, Hgb 13.7, Hct 39.9 L, MCV 91.1, MCH 31.3, MCHC 34.3, RDW Std Deviation 44.5 H, RDW Coeff of Matteo 13.2, Plt Count 152, MPV 11.3, Immature Gran % (Auto) 2.300 H, Neut % (Auto) 83.9 H, Lymph % (Auto) 3.9 L, [place] % (Auto) 9.2, Eos % (Auto) 0.5, Baso % (Auto) 0.2, Absolute Neuts (auto) 14.9 H, Absolute Lymphs (auto) 0.69 L, Nucleated RBC % 0, Diff Path Review Reviewed 07/19/19 05:25: PT 19.2 H, INR 1.6 07/19/19 05:25: Sodium 140, Potassium 3.6, Chloride 108 H, Carbon Dioxide 22.0, Anion Gap 10, BUN 16, Creatinine 0.96, Estim Creat Clear Calc 55.42, Est GFR (MDRD) Af Amer 95, Est GFR (MDRD) Non-Af 79, BUN/Creatinine Ratio 16.6, Glucose 138 H, Calcium 7.4 L, Total Bilirubin 1.80 H, AST 24, ALT 58, Alkaline Phosphatase 51, Total Protein 6.0 L, Albumin 2.6 L, Globulin 3.4, Albumin/Globulin Ratio 0.8 L, Lipase 550 H 07/19/19 05:48: POC Glucose 143 H 07/19/19 12:23: POC Glucose 134 H Code Visit Inpatient E&M: 31338 Subs Hosp L3
[2019-07-19 17:01] LABS: Bedside Glucose 127 mg/dL (70-110)
--- NOTE | 2019-07-19 19:34 | PCM.PN.CARD ---
Subjectve: The patient appears to be resting comfortably at this time. He has no chest discomfort or difficulty breathing. He notes his abdomen is still sore. Objective: Vital Signs Temp Pulse Resp BP Pulse Ox 98.9 F 70 20 H 105/59 L 90 07/19/19 17:00 07/19/19 19:00 07/19/19 17:57 07/19/19 17:57 07/19/19 17:57 Oxygen Delivery Method Room Air Weight: 186 lb 9.588 oz Body Mass Index (BMI) 28.3 Intake and Output for Last 24 Hours 07/17/19 07/18/19 07/19/19 23:59 23:59 23:59 Intake Total 3739.67 / 3739.67 1945.00 / 1945.00 Output Total 725 / 725 1050 / 1050 Balance 3014.67 / 3014.67 895.00 / 895.00 General: Awake, Alert, Oriented x 3, Cooperative, No Acute Distress HEENT: Atraumatic, Normocephalic, PERRL, EOMI, Sclera Non Icteric Oral: Moist Mucosa Neck: Supple, Good ROM, No JVD Lungs: Clear to auscultation Cardiovascular: Irregular Rhythm, Normal S1, Normal S2 Abdomen: Hypoactive Bowel Sounds Extremities: No edema Neurological: No Focal Motor or Sensory Deficit Psych/Mental Status: Appropriate 07/19/19 05:25: WBC 17.8 H, RBC 4.38 L, Hgb 13.7, Hct 39.9 L, MCV 91.1, MCH 31.3, MCHC 34.3, Plt Count 152, MPV 11.3, Immature Gran % (Auto) 2.300 H, Neut % (Auto) 83.9 H, Lymph % (Auto) 3.9 L, [place] % (Auto) 9.2, Eos % (Auto) 0.5, Baso % (Auto) 0.2, Absolute Neuts (auto) 14.9 H, Nucleated RBC % 0 07/19/19 05:25: PT 19.2 H, INR 1.6 07/19/19 05:25: Sodium 140, Potassium 3.6, Chloride 108 H, Carbon Dioxide 22.0, Anion Gap 10, BUN 16, Creatinine 0.96, Est GFR (MDRD) Af Amer 95, Est GFR (MDRD) Non-Af 79, BUN/Creatinine Ratio 16.6, Glucose 138 H, Calcium 7.4 L, Total Bilirubin 1.80 H Rhythm: Atrial fibrillation Medical Necessity - Tobacco Use Smoking Status: Former smoker - Patient quit cigarette tobacco usage approximate 4 years prior. Tobacco Use: Non-smoker Assessment/Plan 1. Atrial fibrillation with rapid ventricular response He is continuing on IV diltiazem at this time. He is without his anticoagulant therapy. His INR is decreased. The tentative plan is to proceed with his general surgical procedure/laparoscopic cholecystectomy tomorrow. 2. Hyperlipidemia He will continue risk factor evaluation care as deemed appropriate. 3. Hypertension He will continue medical management as deemed appropriate. 4. Diabetes mellitus He will continue evaluation care per internal medicine. 5. Acute cholecystitis/gallstone pancreatitis He will continue evaluation care per general surgery. He is tenably scheduled for laparoscopic cholecystectomy tomorrow. Following his procedure, when he is able, he will resume his anticoagulant therapy. This note was generated using a voice recognition system and there may be incorrect words, spelling or punctuation that were not noted when reviewing the office note prior to saving.
[2019-07-19] MEDS: 0.9% Saline Lock 10 ML Syringe IV (21:19)
[2019-07-19] MEDS: Finasteride 5 MG Tablet PO (21:26)
[2019-07-20] VITALS (35 sets, daily range): BP systolic 110–152; BP diastolic 56–109; PULSE 61–96; RESP 19–27; TEMP 36.6–37.2; O2SAT 92–97; BMI 28.3
--- NOTE | 2019-07-20 | GALL_PTH ---
PATIENT: SORAIDA PERES LOC: [facility] U#:[id number] AGE/SX: 84/M ROOM: [facility] RE07/18/[address]: Dr. Colten Sheffield MD : [id number] BED: 1 DIS: 07/21/2019 SPEC #: [id number] RECD: 07/20/19 12:55 STATUS: JOSÉ MIGUEL REQ #: [id number] ALICE: 07/20/19 00:[address]: Manpreet Gleason DEPT: SURGICAL PATHOLOGY RECD BY: Senthil Aquino ENTERED: 07/20/19 12:56 SP TYPE: GALLBLADDE OTHR DR: MD Dr. Manpreet Guerra MD Dr. Hannah Miedel, MD Dr. Prakash Chand, MD Dr. Paul Moodispaw, MD Tissues: Gallbladder, NOS Procedures: Surgery Specimen Level III Comments: @ Ordering doctor for SUIII edited from to @ shaw RAMIREZ at 07/20/19 1409 @ Submitting doctor edited from to @ shaw RAMIREZ at 07/20/19 1409 HEADER OPERATION: Laparoscopic cholecystectomy PRE-OP DIAGNOSIS: Acute calculus cholecystitis TISSUE SUBMITTED: Gallbladder and contents MICROSCOPIC DIAGNOSIS Gallbladder and contents, cholecystectomy: Acute and chronic cholecystitis and cholelithiasis. MARSHAL:veda 07/21/19 MICROSCOPIC DESCRIPTION Slides are reviewed. GROSS DESCRIPTION Received is one container labeled with the patient's name and designated gallbladder and contents. The specimen consists of a gallbladder measuring 8 cm in length and up to 3.5 cm in diameter. The external surface is pink-barbour, smooth and glistening for the most part. Focally it is granular, hemorrhagic and contains cautery artifact. The gallbladder contains green-yellow mucoid bile and multiple small greenish-brown stones measuring in aggregate 0.5 x 1 x 0.3 cm and 0.2 to 0.3 cm in greatest dimension. The mucosa is bile-stained and without any mass lesions. The gallbladder wall measures up to 0.4 cm in thickness. Marketing Analytics Specialist sections from the gallbladder and the cystic duct are submitted in one cassette. / MARSHAL:veda 07/20/19 TC:2 CPT: 37096
[2019-07-20] MEDS: 0.9% Normal Saline 1,000 ML 150 ML IV ×3 (00:06→11:53)
[2019-07-20 00:16] LABS: Bedside Glucose 132 mg/dL (70-110)
[2019-07-20 05:49] LABS: Absolute Lymphocyte Count 0.93 X10^3/uL (0.83-4.51); Absolute Neutrophil Count 12.4 X10^3/uL (2.0-7.7); Basophil# 0.02 X10^3/uL; Basophil% 0.1 % (0-1); Eosinophil# 0.04 X10^3/uL; Eosinophils% 0.3 % (0-5); Hematocrit 39.2 % (40-54); Hemoglobin 12.9 g/dL (13.0-16.5); Lymphocyte # 0.93 X10^3/ul (4.0); Lymphocyte % 6.3 % (19-41); Mean Corp Hgb Conc 32.9 g/dL (32-36); Mean Corpuscular Hgb 30.6 pg (27.0-32.0); Mean Corpuscular Volume 93.1 fL (80-94); Mean Platelet Vol. 11.4 fl (6.2-12.0); Monocyte# 1.33 X10^3/uL; Monocyte% 8.9 % (0-10); NRBC Flagged by Analyzer 0 % (0-5); Neutrophil # 12.39 X10^3/uL (2.7-7.7); Neutrophil % 83.3 % (47-70); Platelet Count 157 K/mm3 (150-450); RBC Distribution Width CV 13.5 % (11.6-14.6); RBC Distribution Width SD 46.4 fl (35.1-43.9); Red Blood Count 4.21 M/mm3 (4.6-6.2); White Blood Count 14.9 K/mm3 (4.4-11.0)
[2019-07-20 05:54] LABS: International Normalized Ratio 1.4; Prothrombin Time (Protime)PT. 16.8 SECONDS (11.7-14.9)
--- NOTE | 2019-07-20 05:55 | EKG12_ITS ---
Test Reason : AM EKG Blood Pressure : / mmHG Vent. Rate : 078 BPM Atrial Rate : 416 BPM P-R Int : 000 ms QRS Dur : 086 ms QT Int : 414 ms P-R-T Axes : 000 049 050 degrees QTc Int : 471 ms Atrial fibrillation Abnormal ECG When compared with ECG of 18-JUL-2019 13:52, MANUAL COMPARISON REQUIRED, DATA IS UNCONFIRMED Confirmed by CL AGUILAR, KAMRYN ([id number]), multimedia editor SHEA MARQUES ([id number]) on 07/25/2019 3:22:53 PM Referred By: JOHN Confirmed By:KAMRYN SMALLWOOD MD
[2019-07-20 06:16] LABS: Bedside Glucose 125 mg/dL (70-110)
[2019-07-20 06:17] LABS: Anion Gap 9 (5-15); BUN 20 mg/dL (7-18); Calcium,Total 7.7 mg/dL (8.5-10.1); Chloride 109 mmol/L (98-107); Creatinine, Serum 0.91 mg/dL (0.70-1.30); EST Glomerular Filtration Rate 85 mL/min (>60); Est Glom Filt Rate - Afr Amer 102 mL/min (>60); Estimated Creatinine Clearance 58.46 ml/min; Glucose 126 mg/dL (74-106); Potassium 3.4 mmol/L (3.5-5.1); Sodium Level 141 mmol/L (136-145)
--- NOTE | 2019-07-20 08:32 | NURSING ---
Pt transported to surgery by Carol BOYLE.
[2019-07-20 09:27] LABS: Hemoglobin A1c 7.2 % (4.2-6.3)
[2019-07-20] MEDS: Bupivacaine Mpf 0.5% 30 ML VIAL (10:10)
--- NOTE | 2019-07-20 10:14 | OP.PCM_ITS ---
Problem List (1) Acute gallstone pancreatitis Status: Acute (2) Acute calculous cholecystitis Status: Acute Report of Operation Date of Procedure: 07/20/19 Pre-Operative Diagnosis: Gallstone pancreatitis with acute cholecystitis Post-Operative Diagnosis: Same Surgery/Procedure Performed:: Laparoscopic cholecystectomy Type of Anesthesia:: General Anesthesiologist: Juan Carlos Thompson Specimen's removed: Gallbladder Drains: #15. Round Brian-Goodman Estimated Blood Loss (mL): < 25 cc Fluids Replaced: 600 cc LR Description of Procedure: Patient was brought into the operating room. Placed in the supine position. Under excellent general endotracheal intubation abdomen was sterilely prepped and draped in usual fashion. Local was injected below the xiphoid incision was made Visiport was used to gain access into the intra-abdominal area abdomen was insufflated to 15 torr I went to the right side of the abdomen placed another Visiport. Patient was noted to have some adhesions of the small bowel to the midline lower abdominal incision I was able to place another #5 trocar inferior to the xiphoid trocar and then in the right lower quadrant of the abdomen I placed a 10/12 trocar under direct visualization. There is no injury to underlying structures. Patient was noted to have a very edematous fundus of the gallbladder was grasped and retracted in a cephalad direction. There was some spillage of bile but no spillage of stones here. I started to dissect down towards the cystic duct he had an extremely short cystic duct and all the tissue here was very friable made a decision that it was not feasible to perform a cholangiogram without possible injury to the common bile duct and therefore I placed 2 hemoclips proximally and one distally and ligated the duct similar fashion identified the cystic artery placed hemoclips proximally distally and ligated the artery. I deliver the gallbladder from gallbladder bed with use of electrocautery. I placed in a specimen bag and delivered through the 1012 trocar without difficulty. I used electrocautery to obtain good hemostasis on the liver bed I irrigated all the bile out of the abdomen I placed a 15 round Brian-Goodman drain through the lateral incision placing the drain in the gallbladder fossa and suturing it to the skin with a 3-0 nylon. I removed all the trochars under direct visualization good hemostasis was noted. I closed the fascia the 10/12 trocar with a [id number] stitch of 0 Vicryl. Skin incisions were closed with some particular stitches of 4-0 Monocryl. Steri- Strips were applied sterile dressings were applied and the patient tolerated the procedure well. - Admit VTE Documentation VTE Present on Admission: No VTE Mechan Device Prophylaxis: SCD's VTE Pharm Prophylaxis ordered?: No Reason prophylaxis not ordered:: Treatment Not Indicated
[2019-07-20] MEDS: Lactated Ringers 1,000 ML 100 ML IV (10:25)
[2019-07-20 10:50] LABS: Bedside Glucose 127 mg/dL (70-110)
[2019-07-20] MEDS: Famotidine 200 MG/20 ML MDV 20 MG in 0.9% Normal Saline (Pres. free 8 ML 300 MG IV ×2 (11:54→21:43)
[2019-07-20 12:11] LABS: Bedside Glucose 134 mg/dL (70-110)
--- NOTE | 2019-07-20 12:57 | PN_ITS ---
<Cinthia Webb - Last Filed: 07/20/19 13:22> Patient Problems: Active and Suspected Problems (Last Reviewed 07/19/19 @ 08:17 by Sandrine Gaytan PA-C) Acute calculous cholecystitis (Acute) Acute gallstone pancreatitis (Acute) Atrial fibrillation with RVR (Acute) Severe sepsis (Acute) Anticoagulant long-term use (Acute) Subjective: Patient seen and examined. Underwent laparoscopic cholecystectomy with Dr. Gleason. Patient currently comfortable. Denies significant pain. Denies nausea, vomiting. - Physical Exam Vitals/I&O's: Vital Signs Temp Pulse Resp BP Pulse Ox 98.2 F 67 20 H 138/73 H 94 07/20/19 12:00 07/20/19 12:00 07/20/19 12:11 07/20/19 12:00 07/20/19 12:11 Oxygen Flow Rate (L/min) 3 Oxygen Delivery Method Nasal Cannula Weight: 186 lb 9.588 oz Body Mass Index (BMI) 28.3 Finger Stick Blood Glucose 127 Intake and Output for Last 24 Hours 07/18/19 07/19/19 07/20/19 23:59 23:59 23:59 Intake Total 3739.67 / 3739.67 2551.29 / 2551.46 3130.71 / 3130.71 Output Total 725 / 725 1050 / 1050 690 / 690 Balance 3014.67 / 3014.67 1501.29 / 1501.46 2440.71 / 2440.71 General: Alert, Oriented x3, Cooperative HEENT: Atraumatic, PERRLA, EOMI, Normocephalic Neck: Supple, No JVD, Negative Carotid Bruits Lungs: Clear to auscultation, Normal air movement Cardiovascular: - - Atrial fibrillation, rate controlled. Abdomen: Bowel Sounds Present, Soft, Non Tender, Non-Distended, Obese, - - Postop dressings intact, ALFREDO drain in place with serosanguineous drainage. Extremities: No clubbing, No cyanosis, No edema, Capillary Refill Less than 3 Seconds Skin: No rashes, No breakdown Musculoskeletal: No Tenderness to Palpation of Joints or Extremities Neurological: Cranial nerves II-XII grossly intact, Neuro grossly intact Psych/Mental Status: Normal Affect, Appropriate Microbiology Past 72 Hours 07/18/19 13:29 Blood Culture (Wb) - Left Hand Blood Culture - Preliminary No growth in 48 hours. 07/18/19 13:36 Blood Culture (Wb) - Anticubital Left Blood Culture - Preliminary No growth in 48 hours. Laboratory Results 07/18/19 12:00: Diff Path Review Reviewed 07/19/19 05:25: Diff Path Review Reviewed 07/19/19 16:39: POC Glucose 127 H 07/20/19 00:04: POC Glucose 132 H 07/20/19 05:21: WBC 14.9 H, RBC 4.21 L, Hgb 12.9 L, Hct 39.2 L, MCV 93.1, MCH 30.6, MCHC 32.9, RDW Std Deviation 46.4 H, RDW Coeff of Matteo 13.5, Plt Count 157, MPV 11.4, Immature Gran % (Auto) 1.100 H, Neut % (Auto) 83.3 H, Lymph % (Auto) 6.3 L, [place] % (Auto) 8.9, Eos % (Auto) 0.3, Baso % (Auto) 0.1, Absolute Neuts (auto) 12.4 H, Absolute Lymphs (auto) 0.93, Nucleated RBC % 0 07/20/19 05:21: PT 16.8 H, INR 1.4 07/20/19 05:21: Sodium 141, Potassium 3.4 L, Chloride 109 H, Carbon Dioxide 23.0, Anion Gap 9, BUN 20 H, Creatinine 0.91, Estim Creat Clear Calc 58.46, Est GFR (MDRD) Af Amer 102, Est GFR (MDRD) Non-Af 85, BUN/Creatinine Ratio 22.0 H, Glucose 126 H, Calcium 7.7 L 07/20/19 05:21: Hemoglobin A1c 7.2 H 07/20/19 06:08: POC Glucose 125 H 07/20/19 10:47: POC Glucose 127 H 07/20/19 11:57: POC Glucose 134 H Current Medications Acetaminophen (Tylenol) 650 mg PO Q6H PRN PRN PRN Reason: Non-cardiac pain (mod-severe) Hydrocodone Bitart/Acetaminophen ([place] 5mg-325mg) 1 - 2 tablet PO Q4H PRN PRN PRN Reason: Pain Score 4-10/10 Al Hydroxide/Mg Hydroxide (Mylanta Ii) 15 - 30 ml PO Q4H PRN PRN PRN Reason: INDIGESTION Albuterol Sulfate (Ventolin Aerosols) 2.5 mg INHALATION Q2H PRN PRN PRN Reason: dyspnea, wheezing Dextrose (D50w Syringe) 0 gm IV X1 PRN; Protocol PRN Reason: Hypoglycemia Finasteride (Proscar) 5 mg PO QHS [facility] Last Admin: 07/19/19 21:26 Dose: 5 mg Documented by: Glucagon () 1 mg IM .X1 PRN PRN Reason: Hypoglycemia Hydralazine HCl (Apresoline Iv) 10 mg IV Q4H PRN PRN PRN Reason: SBP > 160 Sodium Chloride () 1,000 mls @ 150 mls/hr IV .Q6H40M [facility] Last Admin: 07/20/19 11:53 Dose: 150 mls/hr Documented by: Piperacillin Sod/Tazobactam (Sod 3.375 gm/ Sodium Chloride) 50 mls @ 12.5 mls/hr IV Q8 [facility] Last Infusion: 07/20/19 09:10 Dose: Infused Documented by: Famotidine 20 mg/ Sodium (Chloride) 10 mls @ 300 mls/hr IV Q12 [facility] Last Infusion: 07/20/19 12:02 Dose: Infused Documented by: Diltiazem HCl 125 mg/ Dextrose 125 mls @ 5 mls/hr IV .Q25H [facility]; Protocol Last Titration: 07/20/19 12:00 Dose: 5 mg/hr, 5 mls/hr Documented by: Insulin Human Lispro (Humalog Kwikpen (Bkc)) 0 unit SC Q6 [facility]; Protocol Last Admin: 07/20/19 11:57 Dose: Not Given Documented by: Magnesium Hydroxide (Milk Of Magnesia) 30 ml PO DAILY PRN PRN Reason: Constipation Morphine Sulfate () 1 - 2 mg IV Q4H PRN PRN PRN Reason: Pain Score 1-10/10 Nitroglycerin (Nitrostat) 0.4 mg SUBLINGUAL Q5M PRN PRN Reason: CARDIAC/CHEST PAIN Ondansetron HCl (Zofran) 4 mg IV Q8H PRN PRN PRN Reason: NAUSEA/VOMITING Sodium Chloride () 10 - 40 ml IV UD PRN PRN Reason: SALINE FLUSH Last Admin: 07/19/19 21:19 Dose: 20 ml Documented by: Medical Necessity - Tobacco Use Smoking Status: Former smoker - Patient quit cigarette tobacco usage approximate 4 years prior. Tobacco Use: Non-smoker Assessment/Plan All Active Problems (Last Reviewed 07/19/19 @ 08:17 by Sandrine Gaytan PA-C) SMA occlusion (Acute) Acute calculous cholecystitis (Acute) Acute gallstone pancreatitis (Acute) Atrial fibrillation with RVR (Acute) Severe sepsis (Acute) Anticoagulant long-term use (Acute) 1. Severe sepsis secondary to acute cholelithiasis with acute gallstone pancreatitis- status post laparoscopic cholecystectomy 07/20/[address] Gleason. PRN pain regimen. On IV Zosyn. General surgery following. ALFREDO drain in place with serosanguineous drainage. 2. Chronic atrial fibrillation with RVR, likely exacerbated by #1-cardiology following. On IV Cardizem. Rate controlled. Coumadin on hold due to #1. 3. Hypertension-not on regimen, blood pressure stable. 4. Hyperlipidemia-not on statin. 5. Type 2 diabetes mellitus-diet controlled. Hemoglobin A1c 7.2%. Carb controlled diet when able to resume regular diet. 6. History of bladder cancer, status post transurethral resection-in remission. 7. BPH-continue home Proscar regimen. 8. History of mesenteric ischemia-status post partial SBO. 9. GERD-IV famotidine. DVT prophylaxis-SCDs, resume Coumadin when okay per surgery. This patient was seen by BONNY Collado under the supervision of Dr. Sheffield. <Colten Sheffield - Last Filed: 07/20/19 14:40> Subjective: Seen and examined. Patient had a laparoscopic cholecystectomy. No fever or chills. No tachycardia. Hemodynamically stable. Pulse ox 97% on 3 L of oxygen. - Physical Exam Vitals/I&O's: Vital Signs Temp Pulse Resp BP Pulse Ox 98.2 F 66 21 H 133/72 H 97 07/20/19 12:00 07/20/19 14:00 07/20/19 14:00 07/20/19 14:00 07/20/19 14:00 Oxygen Flow Rate (L/min) 3 Oxygen Delivery Method Nasal Cannula Weight: 186 lb 9.588 oz Body Mass Index (BMI) 28.3 Finger Stick Blood Glucose 127 Intake and Output for Last 24 Hours 07/18/19 07/19/19 07/20/19 23:59 23:59 23:59 Intake Total 3739.67 / 3739.67 2551.29 / 2551.46 3140.71 / 3140.71 Output Total 725 / 725 1050 / 1050 965 / 965 Balance 3014.67 / 3014.67 1501.29 / 1501.46 2175.71 / 2175.71 General: Alert, Oriented x3, Cooperative HEENT: Atraumatic, PERRLA, EOMI, Normocephalic Neck: Supple, No JVD, Negative Carotid Bruits Lungs: Clear to auscultation, No wheeze, No rales, Diminished Cardiovascular: Regular rate, Normal S1, Normal S2, No murmurs, - Abdomen: Bowel Sounds Present, Soft, - - Postop dressings intact, ALFREDO drain in place with serosanguineous drainage. Patient has ALFREDO drain. Tenderness over the operative region Extremities: No edema, Capillary Refill Less than 3 Seconds Skin: No rashes, No breakdown Musculoskeletal: No Tenderness to Palpation of Joints or Extremities, Arthritic Changes Neurological: Cranial nerves II-XII grossly intact, Neuro grossly intact Psych/Mental Status: Normal Affect, Appropriate Microbiology Past 72 Hours 07/18/19 13:29 Blood Culture (Wb) - Left Hand Blood Culture - Preliminary No growth in 48 hours. 07/18/19 13:36 Blood Culture (Wb) - Anticubital Left Blood Culture - Preliminary No growth in 48 hours. Laboratory Results 07/19/19 16:39: POC Glucose 127 H 07/20/19 00:04: POC Glucose 132 H 07/20/19 05:21: WBC 14.9 H, RBC 4.21 L, Hgb 12.9 L, Hct 39.2 L, MCV 93.1, MCH 30.6, MCHC 32.9, RDW Std Deviation 46.4 H, RDW Coeff of Matteo 13.5, Plt Count 157, MPV 11.4, Immature Gran % (Auto) 1.100 H, Neut % (Auto) 83.3 H, Lymph % (Auto) 6.3 L, [place] % (Auto) 8.9, Eos % (Auto) 0.3, Baso % (Auto) 0.1, Absolute Neuts (auto) 12.4 H, Absolute Lymphs (auto) 0.93, Nucleated RBC % 0 07/20/19 05:21: PT 16.8 H, INR 1.4 07/20/19 05:21: Sodium 141, Potassium 3.4 L, Chloride 109 H, Carbon Dioxide 23.0, Anion Gap 9, BUN 20 H, Creatinine 0.91, Estim Creat Clear Calc 58.46, Est GFR (MDRD) Af Amer 102, Est GFR (MDRD) Non-Af 85, BUN/Creatinine Ratio 22.0 H, Glucose 126 H, Calcium 7.7 L 07/20/19 05:21: Hemoglobin A1c 7.2 H 07/20/19 06:08: POC Glucose 125 H 07/20/19 10:47: POC Glucose 127 H 07/20/19 11:57: POC Glucose 134 H Current Medications Acetaminophen (Tylenol) 650 mg PO Q6H PRN PRN PRN Reason: Non-cardiac pain (mod-severe) Hydrocodone Bitart/Acetaminophen ([place] 5mg-325mg) 1 - 2 tablet PO Q4H PRN PRN PRN Reason: Pain Score 4-10/10 Al Hydroxide/Mg Hydroxide (Mylanta Ii) 15 - 30 ml PO Q4H PRN PRN PRN Reason: INDIGESTION Albuterol Sulfate (Ventolin Aerosols) 2.5 mg INHALATION Q2H PRN PRN PRN Reason: dyspnea, wheezing Dextrose (D50w Syringe) 0 gm IV X1 PRN; Protocol PRN Reason: Hypoglycemia Finasteride (Proscar) 5 mg PO QHS [facility] Last Admin: 07/19/19 21:26 Dose: 5 mg Documented by: Glucagon () 1 mg IM .X1 PRN PRN Reason: Hypoglycemia Hydralazine HCl (Apresoline Iv) 10 mg IV Q4H PRN PRN PRN Reason: SBP > 160 Sodium Chloride () 1,000 mls @ 150 mls/hr IV .Q6H40M [facility] Last Admin: 07/20/19 11:53 Dose: 150 mls/hr Documented by: Piperacillin Sod/Tazobactam (Sod 3.375 gm/ Sodium Chloride) 50 mls @ 12.5 mls/hr IV Q8 [facility] Last Infusion: 07/20/19 09:10 Dose: Infused Documented by: Famotidine 20 mg/ Sodium (Chloride) 10 mls @ 300 mls/hr IV Q12 [facility] Last Infusion: 07/20/19 12:02 Dose: Infused Documented by: Diltiazem HCl 125 mg/ Dextrose 125 mls @ 5 mls/hr IV .Q25H [facility]; Protocol Last Titration: 07/20/19 14:00 Dose: 5 mg/hr, 5 mls/hr Documented by: Insulin Human Lispro (Humalog Kwikpen (Bkc)) 0 unit SC Q6 [facility]O; Protocol Last Admin: 07/20/19 11:57 Dose: Not Given Documented by: Magnesium Hydroxide (Milk Of Magnesia) 30 ml PO DAILY PRN PRN Reason: Constipation Morphine Sulfate () 1 - 2 mg IV Q4H PRN PRN PRN Reason: Pain Score 1-10/10 Nitroglycerin (Nitrostat) 0.4 mg SUBLINGUAL Q5M PRN PRN Reason: CARDIAC/CHEST PAIN Ondansetron HCl (Zofran) 4 mg IV Q8H PRN PRN PRN Reason: NAUSEA/VOMITING Sodium Chloride () 10 - 40 ml IV UD PRN PRN Reason: SALINE FLUSH Last Admin: 07/19/19 21:19 Dose: 20 ml Documented by: Assessment/Plan This patient was seen in conjunction with Cinthia FOOTE. I have independently interviewed and examined the patient and reviewed pertinent history, examination findings, laboratory and plan of management. I have reviewed the note and agree with the documented findings with the few additional points. In brief, patient is admitted for severe sepsis secondary to acute cholelithiasis complicating into acute gallstone pancreatitis. Patient also has multiple comorbidities including chronic A. fib on Coumadin, hypertension, dyslipidemia history of mesenteric ischemia, history of bladder cancer status post resection 1 diabetes mellitus type 2. Coumadin was held and vitamin K was given. INR normal. Patient underwent laparoscopic cholecystectomy on 07/20/2019. Surgical care as per Dr. Gleason. Patient also had chronic A. fib with RVR rate was controlled. Bass Singer was contacted. Coumadin is on hold. Her other comorbidities are stable including hypertension, dyslipidemia Diabetes mellitus type 2 blood sugars are controlled. On Accu-Chek before meals and at bedtime cover with Humalog sliding scale. I have discussed my assessment with Cinthia FOOTE and orders have been reviewed. Code Visit Inpatient E&M: 44994 Subs Hosp L3
[2019-07-20] MEDS: Potassium Chloride 10mEq/100mL 10 MEQ/100 ML IV.SOLN. 100 MEQ IV BOLUS ×2 (14:57→16:16)
[2019-07-20 17:15] LABS: Bedside Glucose 151 mg/dL (70-110)
--- NOTE | 2019-07-20 19:21 | PN.CARD_ITS ---
Subjectve: The patient is now status post laparoscopic cholecystectomy. He appears to be resting comfortably at this time. Objective: Vital Signs Temp Pulse Resp BP Pulse Ox 98.2 F 79 19 H 127/85 H 96 07/20/19 12:00 07/20/19 17:00 07/20/19 17:00 07/20/19 17:00 07/20/19 17:00 Oxygen Flow Rate (L/min) 3 Oxygen Delivery Method Nasal Cannula Weight: 186 lb 9.588 oz Body Mass Index (BMI) 28.3 Finger Stick Blood Glucose 127 Intake and Output for Last 24 Hours 07/18/19 07/19/19 07/20/19 23:59 23:59 23:59 Intake Total 3739.67 / 3739.67 2551.29 / 2551.46 4273.21 / 4273.21 Output Total 725 / 725 1050 / 1050 1780 / 1780 Balance 3014.67 / 3014.67 1501.29 / 1501.46 2493.21 / 2493.21 General: No Acute Distress Lungs: Clear to auscultation Cardiovascular: Irregular Rhythm, Normal S1, Normal S2 Extremities: No edema 07/20/19 05:21: WBC 14.9 H, RBC 4.21 L, Hgb 12.9 L, Hct 39.2 L, MCV 93.1, MCH 30.6, MCHC 32.9, Plt Count 157, MPV 11.4, Immature Gran % (Auto) 1.100 H, Neut % (Auto) 83.3 H, Lymph % (Auto) 6.3 L, [place] % (Auto) 8.9, Eos % (Auto) 0.3, Baso % (Auto) 0.1, Absolute Neuts (auto) 12.4 H, Nucleated RBC % 0 07/20/19 05:21: PT 16.8 H, INR 1.4 07/20/19 05:21: Sodium 141, Potassium 3.4 L, Chloride 109 H, Carbon Dioxide 23.0, Anion Gap 9, BUN 20 H, Creatinine 0.91, Est GFR (MDRD) Af Amer 102, Est GFR (MDRD) Non-Af 85, BUN/Creatinine Ratio 22.0 H, Glucose 126 H, Calcium 7.7 L 07/20/19 05:21: Hemoglobin A1c 7.2 H Rhythm: Atrial fibrillation Medical Necessity - Tobacco Use Smoking Status: Former smoker - Patient quit cigarette tobacco usage approximate 4 years prior. Tobacco Use: Non-smoker Assessment/Plan 1. Atrial fibrillation with rapid ventricular response He is continuing on IV diltiazem at this time. He is without his anticoagulant therapy. 2. Hyperlipidemia He will continue risk factor evaluation care as deemed appropriate. 3. Hypertension He will continue medical management as deemed appropriate. 4. Diabetes mellitus He will continue evaluation care per internal medicine. 5. Acute cholecystitis/gallstone pancreatitis He is now status post laparoscopic cholecystectomy. When he is able from a surgical standpoint he will be transitioned to oral medical therapy as deemed appropriate including reinitiation of anticoagulant therapy. This note was generated using a voice recognition system and there may be incorrect words, spelling or punctuation that were not noted when reviewing the office note prior to saving.
[2019-07-20] MEDS: 0.9% Normal Saline 1,000 ML 50 ML IV (19:50)
[2019-07-20] MEDS: Finasteride 5 MG Tablet PO (21:44)
[2019-07-21] VITALS (19 sets, daily range): BP systolic 124–153; BP diastolic 64–101; PULSE 76–108; RESP 20–26; TEMP 36.4–36.9; O2SAT 88–97
[2019-07-21 00:30] LABS: Bedside Glucose 135 mg/dL (70-110)
--- NOTE | 2019-07-21 02:00 | NURSING ---
Assisted patient to stand at bedside and walk in room with assist from HARDWOOD FALLER.
[2019-07-21 06:20] LABS: Bedside Glucose 131 mg/dL (70-110)
[2019-07-21 06:46] LABS: Absolute Lymphocyte Count 0.67 X10^3/uL (0.83-4.51); Absolute Neutrophil Count 10.2 X10^3/uL (2.0-7.7); Basophil# 0.06 X10^3/uL; Basophil% 0.5 % (0-1); Eosinophil# 0.07 X10^3/uL; Eosinophils% 0.6 % (0-5); Hematocrit 38.7 % (40-54); Hemoglobin 12.9 g/dL (13.0-16.5); Lymphocyte # 0.67 X10^3/ul (4.0); Lymphocyte % 5.4 % (19-41); Mean Corp Hgb Conc 33.3 g/dL (32-36); Mean Corpuscular Hgb 30.9 pg (27.0-32.0); Mean Corpuscular Volume 92.6 fL (80-94); Mean Platelet Vol. 11.4 fl (6.2-12.0); Monocyte# 1.25 X10^3/uL; Monocyte% 10.1 % (0-10); NRBC Flagged by Analyzer 0 % (0-5); Neutrophil # 10.17 X10^3/uL (2.7-7.7); Neutrophil % 82.3 % (47-70); Platelet Count 166 K/mm3 (150-450); RBC Distribution Width CV 13.2 % (11.6-14.6); RBC Distribution Width SD 45.1 fl (35.1-43.9); Red Blood Count 4.18 M/mm3 (4.6-6.2); White Blood Count 12.4 K/mm3 (4.4-11.0)
[2019-07-21 07:00] LABS: Magnesium 2.5 mg/dL (1.6-2.6)
[2019-07-21 07:06] LABS: ALB/GLOB Ratio 0.6 RATIO (0.9-2.4); AST(SGOT) 32 U/L (15-37); Alanine Aminotransfer ALT/SGPT 48 U/L (16-61); Albumin, Serum 2.3 g/dL (3.2-5.0); Alkaline Phosphatase 66 U/L (45-117); Anion Gap 9 (5-15); BUN 14 mg/dL (7-18); BUN/Creat Ratio 18.6 RATIO (10-20); Calcium,Total 7.8 mg/dL (8.5-10.1); Chloride 109 mmol/L (98-107); Creatinine, Serum 0.75 mg/dL (0.70-1.30); EST Glomerular Filtration Rate 105 mL/min (>60); Est Glom Filt Rate - Afr Amer 127 mL/min (>60); Globulin 3.7 g/dL (2.2-4.2); Glucose 141 mg/dL (74-106); Potassium 3.5 mmol/L (3.5-5.1); Sodium Level 142 mmol/L (136-145)
--- NOTE | 2019-07-21 09:32 | PCM.PN.CARD ---
Subjectve: The patient is awake and alert. He denies ongoing palpitations or rapid rates. He states his abdomen is sore but feels better overall. Objective: Vital Signs Temp Pulse Resp BP Pulse Ox 98.4 F 79 22 H 137/74 H 97 07/21/19 04:00 07/21/19 09:00 07/21/19 09:00 07/21/19 09:00 07/21/19 09:00 Oxygen Flow Rate (L/min) 3 Oxygen Delivery Method Nasal Cannula Weight: 186 lb 9.588 oz Body Mass Index (BMI) 28.3 Finger Stick Blood Glucose 127 Intake and Output for Last 24 Hours 07/19/19 07/20/19 07/21/19 23:59 23:59 23:59 Intake Total 2551.29 / 2551.46 4925.63 / 4925.63 538.42 / 538.42 Output Total 1050 / 1050 2090 / 2090 500 / 500 Balance 1501.29 / 1501.46 2835.63 / 2835.63 38.42 / 38.42 General: Awake, Alert, Oriented x 3, Cooperative, No Acute Distress HEENT: Atraumatic, Normocephalic, PERRL, EOMI, Sclera Non Icteric Oral: Moist Mucosa Neck: Supple, Good ROM, No JVD Lungs: Clear to auscultation Cardiovascular: Irregular Rhythm, Normal S1, Normal S2 Abdomen: Bowel Sounds Present Extremities: No edema Neurological: No Focal Motor or Sensory Deficit Psych/Mental Status: Appropriate 07/21/19 05:44: Sodium 142, Potassium 3.5, Chloride 109 H, Carbon Dioxide 24.0, Anion Gap 9, BUN 14, Creatinine 0.75, Est GFR (MDRD) Af Amer 127, Est GFR (MDRD) Non-Af 105, BUN/Creatinine Ratio 18.6, Glucose 141 H, Calcium 7.8 L, Total Bilirubin 1.00 07/21/19 05:44: WBC 12.4 H, RBC 4.18 L, Hgb 12.9 L, Hct 38.7 L, MCV 92.6, MCH 30.9, MCHC 33.3, Plt Count 166, MPV 11.4, Immature Gran % (Auto) 1.100 H, Neut % (Auto) 82.3 H, Lymph % (Auto) 5.4 L, [place] % (Auto) 10.1 H, Eos % (Auto) 0.6, Baso % (Auto) 0.5, Absolute Neuts (auto) 10.2 H, Nucleated RBC % 0 07/21/19 05:44: Magnesium 2.5 Rhythm: Atrial fibrillation Medical Necessity - Tobacco Use Smoking Status: Former smoker - Patient quit cigarette tobacco usage approximate 4 years prior. Tobacco Use: Non-smoker Assessment/Plan 1. Atrial fibrillation with rapid ventricular response He will be transitioned from IV diltiazem to oral diltiazem. He will restart his warfarin therapy-as long as acceptable by general surgery. 2. Hyperlipidemia He will continue risk factor evaluation care as deemed appropriate. 3. Hypertension He will continue medical management as deemed appropriate. 4. Diabetes mellitus He will continue evaluation care per internal medicine. 5. Acute cholecystitis/gallstone pancreatitis He is now status post laparoscopic cholecystectomy. Overall, he will continue medical therapy and future outpatient cardiovascular follow-up. This note was generated using a voice recognition system and there may be incorrect words, spelling or punctuation that were not noted when reviewing the office note prior to saving.
--- NOTE | 2019-07-21 10:04 | PN.SURG_ITS ---
Patient Problems: Active and Suspected Problems (Last Reviewed 07/19/19 @ 08:17 by Sandrine Gaytan PA-C) Acute calculous cholecystitis (Acute) Acute gallstone pancreatitis (Acute) Atrial fibrillation with RVR (Acute) Severe sepsis (Acute) Anticoagulant long-term use (Acute) Subjective: Tolerating p.o. Pain is controlled. ALFREDO drainage has slowed down. Objective: Abdomen is soft ALFREDO was removed without difficulty. - Physical Exam Vitals/I&O's: Vital Signs Temp Pulse Resp BP Pulse Ox 98.4 F 79 22 H 137/74 H 97 07/21/19 04:00 07/21/19 09:00 07/21/19 09:00 07/21/19 09:00 07/21/19 09:00 Oxygen Flow Rate (L/min) 3 Oxygen Delivery Method Nasal Cannula Weight: 186 lb 9.588 oz Body Mass Index (BMI) 28.3 Finger Stick Blood Glucose 127 Intake and Output for Last 24 Hours 07/19/19 07/20/19 07/21/19 23:59 23:59 23:59 Intake Total 2551.29 / 2551.46 4925.63 / 4925.63 538.42 / 538.42 Output Total 1050 / 1050 2090 / 2090 500 / 500 Balance 1501.29 / 1501.46 2835.63 / 2835.63 38.42 / 38.42 Microbiology Past 72 Hours 07/18/19 13:29 Blood Culture (Wb) - Left Hand Blood Culture - Preliminary No growth in 48 hours. 07/18/19 13:36 Blood Culture (Wb) - Anticubital Left Blood Culture - Preliminary No growth in 48 hours. Laboratory Results 07/20/19 10:47: POC Glucose 127 H 07/20/19 11:57: POC Glucose 134 H 07/20/19 17:08: POC Glucose 151 H 07/21/19 00:28: POC Glucose 135 H 07/21/19 05:44: Sodium 142, Potassium 3.5, Chloride 109 H, Carbon Dioxide 24.0, Anion Gap 9, BUN 14, Creatinine 0.75, Estim Creat Clear Calc 53.20, Est GFR (MDRD) Af Amer 127, Est GFR (MDRD) Non-Af 105, BUN/Creatinine Ratio 18.6, Glucose 141 H, Calcium 7.8 L, Total Bilirubin 1.00, AST 32, ALT 48, Alkaline Phosphatase 66, Total Protein 6.0 L, Albumin 2.3 L, Globulin 3.7, Albumin/Globulin Ratio 0.6 L 07/21/19 05:44: WBC 12.4 H, RBC 4.18 L, Hgb 12.9 L, Hct 38.7 L, MCV 92.6, MCH 30.9, MCHC 33.3, RDW Std Deviation 45.1 H, RDW Coeff of Matteo 13.2, Plt Count 166, MPV 11.4, Immature Gran % (Auto) 1.100 H, Neut % (Auto) 82.3 H, Lymph % (Auto) 5.4 L, [place] % (Auto) 10.1 H, Eos % (Auto) 0.6, Baso % (Auto) 0.5, Absolute Neuts (auto) 10.2 H, Absolute Lymphs (auto) 0.67 L, Nucleated RBC % 0 07/21/19 05:44: Magnesium 2.5 07/21/19 06:15: POC Glucose 131 H Current Medications Acetaminophen (Tylenol) 650 mg PO Q6H PRN PRN PRN Reason: Non-cardiac pain (mod-severe) Hydrocodone Bitart/Acetaminophen ([place] 5mg-325mg) 1 - 2 tablet PO Q4H PRN PRN PRN Reason: Pain Score 4-10/10 Al Hydroxide/Mg Hydroxide (Mylanta Ii) 15 - 30 ml PO Q4H PRN PRN PRN Reason: INDIGESTION Albuterol Sulfate (Ventolin Aerosols) 2.5 mg INHALATION Q2H PRN PRN PRN Reason: dyspnea, wheezing Dextrose (D50w Syringe) 0 gm IV X1 PRN; Protocol PRN Reason: Hypoglycemia Diltiazem HCl (Cardizem Cd) 120 mg PO DAILY MEMO Finasteride (Proscar) 5 mg PO QHS MEMO Last Admin: 07/20/19 21:44 Dose: 5 mg Documented by: Glucagon () 1 mg IM .X1 PRN PRN Reason: Hypoglycemia Hydralazine HCl (Apresoline Iv) 10 mg IV Q4H PRN PRN PRN Reason: SBP > 160 Sodium Chloride () 1,000 mls @ 50 mls/hr IV .Q20H MEMO Last Infusion: 07/21/19 06:00 Dose: 50 mls/hr Documented by: Piperacillin Sod/Tazobactam (Sod 3.375 gm/ Sodium Chloride) 50 mls @ 12.5 mls/hr IV Q8 [facility] Last Infusion: 07/21/19 09:08 Dose: Infused Documented by: Famotidine 20 mg/ Sodium (Chloride) 10 mls @ 300 mls/hr IV Q12 MEMO Last Infusion: 07/20/19 21:45 Dose: Infused Documented by: Insulin Human Lispro (Humalog Kwikpen (Bkc)) 0 unit SC Q6 MEMO; Protocol Last Admin: 07/21/19 06:31 Dose: Not Given Documented by: Magnesium Hydroxide (Milk Of Magnesia) 30 ml PO DAILY PRN PRN Reason: Constipation Morphine Sulfate () 1 - 2 mg IV Q4H PRN PRN PRN Reason: Pain Score 1-10/10 Nitroglycerin (Nitrostat) 0.4 mg SUBLINGUAL Q5M PRN PRN Reason: CARDIAC/CHEST PAIN Ondansetron HCl (Zofran) 4 mg IV Q8H PRN PRN PRN Reason: NAUSEA/VOMITING Sodium Chloride () 10 - 40 ml IV UD PRN PRN Reason: SALINE FLUSH Last Admin: 07/19/19 21:19 Dose: 20 ml Documented by: Warfarin Sodium (Coumadin (Pbkc)) 7.5 mg PO DAILY@1700 MEMO Medical Necessity - Tobacco Use Smoking Status: Former smoker - Patient quit cigarette tobacco usage approximate 4 years prior. Tobacco Use: Non-smoker Assessment/Plan All Active Problems (Last Reviewed 07/19/19 @ 08:17 by Sandrine Gaytan PA-C) SMA occlusion (Acute) Acute calculous cholecystitis (Acute) Acute gallstone pancreatitis (Acute) Atrial fibrillation with RVR (Acute) Severe sepsis (Acute) Anticoagulant long-term use (Acute) Postop day #1 Okay to discharge from my standpoint patient will follow-up with my office in 1 week
--- NOTE | 2019-07-21 10:06 | DCINST_ITS ---
Discharge Diet: Light diet - advance as tolerated Discharge Activity: May Not Drive - for 2-3 days or while taking narcotic pain medications., - - Do not drive, work heavy equipment or sign legal documents for 24 hours. May shower in (days): 1 - with the bandage in place. Additional Activity Instructions:: Pain medication may cause nausea. You should typically eat light foods as you take your pain medications. Pain medication may also cause constipation. If this is a problem for you, please discuss with your doctor. Call your doctor if your incision/area has: Continuous Slow Oozing, Sudden Increased Bleeding, Increased Pain/ Swelling, Increased Redness, Foul Smelling Discharge Call your doctor if you observe: Fever of 101 or Higher Suture Line Care: Avoid Pulling/Pushing, Avoid Pinching/Bending Additional Dressing/Incision Instructions:: Leave operative bandaids on for 2 days. When you remove dressing, leave Steri-Strips on until your follow-up appointment, or until the Steri-Strips fall off on their own. Allergies/Adverse Reactions: Allergies metformin Allergy (Severe, Verified 07/18/19 14:54) kidneys shut down Medications to take at Discharge Cholecalciferol (Vitamin D3) [Vitamin D3] 2,000 unit PO DAILY 07/18/19 Docusate Sodium [Dulcolax Stool Softener] 100 mg PO QHS 07/18/19 Finasteride 5 mg PO QHS 07/18/19 Warfarin Sodium 7.5 mg PO SUTUTHSA 07/18/19 Warfarin Sodium 10 mg PO MOWEFR 07/18/19 Primary Care Physician: Darrion Almodovar MD [NON-STAFF] - Test Results: Test results from this visit will be discussed in further detail at your follow- up appointment, if applicable. Please Follow Up With: Manpreet Gleason MD - Please call [phone] to schedule an appointment. When: 7 days after your surgery.
[2019-07-21] MEDS: Famotidine 200 MG/20 ML MDV 20 MG in 0.9% Normal Saline (Pres. free 8 ML 300 MG IV (10:09)
[2019-07-21] MEDS: dilTIAZem CD 120 MG Capsule PO (10:33)
--- NOTE | 2019-07-21 10:40 | DCINST_ITS ---
- Discharge Diagnoses Current Active Problems: Current Active and Chronic Problems (Last Reviewed 07/19/19 @ 08:17 by Sandrine Gaytan PA-C) Acute calculous cholecystitis (Acute) Acute gallstone pancreatitis (Acute) Atrial fibrillation with RVR (Acute) Severe sepsis (Acute) Anticoagulant long-term use (Acute) HTN (hypertension) (Chronic) HLD (hyperlipidemia) (Chronic) You will use the following diet at home:: Other - Light diet, advance as tolerated Discharge Activity: May Not Drive - for 2-3 days or while taking narcotic pain medications., - - Do not drive, work heavy equipment or sign legal documents for 24 hours. May shower in (days): 1 - with the bandage in place. Additional Activity Instructions:: Pain medication may cause nausea. You should typically eat light foods as you take your pain medications. Pain medication may also cause constipation. If this is a problem for you, please discuss with your doctor. Call your doctor if your incision/area has: Continuous Slow Oozing, Sudden Increased Bleeding, Increased Pain/ Swelling, Increased Redness, Foul Smelling Discharge Call your doctor if you observe: Fever of 101 or Higher Suture Line Care: Avoid Pulling/Pushing, Avoid Pinching/Bending Additional Dressing/Incision Instructions:: Leave operative bandaids on for 2 days. When you remove dressing, leave Steri-Strips on until your follow-up appointment, or until the Steri-Strips fall off on their own. Allergies/Adverse Reactions: Allergies metformin Allergy (Severe, Verified 07/18/19 14:54) kidneys shut down Medications to take at Discharge Cholecalciferol (Vitamin D3) [Vitamin D3] 2,000 unit PO DAILY 07/18/19 Docusate Sodium [Dulcolax Stool Softener] 100 mg PO QHS 07/18/19 Finasteride 5 mg PO QHS 07/18/19 Warfarin Sodium 7.5 mg PO SUTUTHSA 07/18/19 Warfarin Sodium 10 mg PO MOWEFR 07/18/19 Diltiazem CD [Cardizem CD] 120 mg PO DAILY #30 cap 07/21/19 Oxycodone HCl/Acetaminophen [Percocet 5/325] 1 - 2 tab PO Q4H PRN PRN 6 Days #30 tab 07/21/19 The following prescriptions were given: Diltiazem CD [Cardizem CD] 120 mg PO DAILY #30 cap Transmission Status: Pending to [facility] #30 Oxycodone HCl/Acetaminophen [Percocet 5/325] 1 - 2 tab PO Q4H PRN PRN 6 Days #30 tab PRN Reason: Pain Prescription Printed Primary Care Physician: Darrion Almodovar MD [NON-STAFF] - Please follow up with your Primary Care Physician in: 1 Week Test Results: Test results from this visit will be discussed in further detail at your follow- up appointment, if applicable. Please Follow Up With: Manpreet Gleason MD - Please call [phone] to schedule an appointment. When: 7 days after your surgery. Please Follow Up With: Lev Perez MD When: 1-2 weeks, may see [employer]/PA Proposed Discharge Date: 07/21/19
--- NOTE | 2019-07-21 10:44 | DS.PCM_ITS ---
<Cinthia Webb - Last Filed: 07/21/19 11:02> Discharge Date and Diagnosis Date of Admission: 07/18/19 Date of Discharge: 07/21/19 - Primary Discharge Diagnosis Active and Suspected Problems (Last Reviewed 07/19/19 @ 08:17 by Sandrine Gaytan PA-C) 1. Severe sepsis secondary to acute cholelithiasis with acute gallstone pancreatitis 2. Chronic atrial fibrillation with RVR, likely exacerbated by #1 3. Hypertension 4. Hyperlipidemia 5. Type 2 diabetes mellitus 6. History of bladder cancer, status post transurethral resection 7. BPH 8. History of mesenteric ischemia 9. GERD - Secondary Discharge Diagnosis Chronic Problems (Last Reviewed 07/19/19 @ 08:17 by Sandrine Gaytan PA-C) History stage IV bladder cancer (Chronic) HTN (hypertension) (Chronic) HLD (hyperlipidemia) (Chronic) Diabetes (Chronic) Longstanding persistent atrial fibrillation (Chronic) Hospital Course and Treatment Imaging Results: Diagnostic Data Gallbladder Ultrasound 07/18/19 11:53 IMPRESSION: Multiple small gallstones and sludge within the gallbladder lumen. Thickened gallbladder wall. Small amount of pericholecystic fluid. Electronically Signed: Nathen Wood, at 13:36 EST , Service support , Dr. Gleason- General surgery Dr. Perez- Cardiology Operations: cholecystecomy Procedures: None Summary of Care Provided: The patient is a 84 year old M admitted 07/18/2019 due to abdominal pain. 1. Severe sepsis secondary to acute cholelithiasis with acute gallstone pancreatitis- status post laparoscopic cholecystectomy 07/20/[address] Gleason. PRN pain regimen. DC IV Zosyn. ALFREDO drain removed. Follow-up with Dr. Gleason in 1 week. 2. Chronic atrial fibrillation with RVR, likely exacerbated by #1-cardiology following. IV Cardizem discontinued. Transition to oral Cardizem CD 120 mg daily. Rate controlled. Resume Coumadin regimen at discharge. Follow-up with Dr. Perez in 1 to 2 weeks. 3. Hypertension-not on regimen, blood pressure stable. 4. Hyperlipidemia-not on statin. 5. Type 2 diabetes mellitus-diet controlled. Hemoglobin A1c 7.2%. 6. History of bladder cancer, status post transurethral resection-in remission. 7. BPH-continue home Proscar regimen. 8. History of mesenteric ischemia-status post partial SBO. 9. GERD-not on regimen. General: Alert, Oriented x3, Cooperative HEENT: Atraumatic, PERRLA, EOMI, Normocephalic Neck: Supple, No JVD, Negative Carotid Bruits Lungs: Clear to auscultation, Normal air movement Cardiovascular: - - Atrial fibrillation, rate controlled. Abdomen: Bowel Sounds Present, Soft, Non-Distended, Obese, postop dressings intact. Mild tenderness to laparoscopic sites. Extremities: No clubbing, No cyanosis, No edema, Capillary Refill Less than 3 Seconds Skin: No rashes, No breakdown Musculoskeletal: No Tenderness to Palpation of Joints or Extremities Neurological: Cranial nerves II-XII grossly intact, Neuro grossly intact Psych/Mental Status: Normal Affect, Appropriate Patient seen and examined prior to discharge. Physical assessment as noted above. Patient is stable for discharge with follow up recommendations as noted above. This patient was seen by BONNY Collado under the supervision of Dr. Sheffield. - Physical Exam Vitals/I&O's: Vital Signs Temp Pulse Resp BP Pulse Ox 98.4 F 108 H 26 H 153/88 H 91 07/21/19 04:00 07/21/19 10:00 07/21/19 10:00 07/21/19 10:00 07/21/19 10:00 Oxygen Flow Rate (L/min) 3 Oxygen Delivery Method Nasal Cannula Weight: 186 lb 9.588 oz Body Mass Index (BMI) 28.3 Finger Stick Blood Glucose 127 Intake and Output for Last 24 Hours 07/19/19 07/20/19 07/21/19 23:59 23:59 23:59 Intake Total 2551.29 / 2551.46 4925.63 / 4925.63 553.42 / 553.42 Output Total 1050 / 1050 2090 / 2090 500 / 500 Balance 1501.29 / 1501.46 2835.63 / 2835.63 53.42 / 53.42 Microbiology Past 72 Hours 07/18/19 13:29 Blood Culture (Wb) - Left Hand Blood Culture - Preliminary No growth in 48 hours. 07/18/19 13:36 Blood Culture (Wb) - Anticubital Left Blood Culture - Preliminary No growth in 48 hours. Laboratory Results 07/20/19 10:47: POC Glucose 127 H 07/20/19 11:57: POC Glucose 134 H 07/20/19 17:08: POC Glucose 151 H 07/21/19 00:28: POC Glucose 135 H 07/21/19 05:44: Sodium 142, Potassium 3.5, Chloride 109 H, Carbon Dioxide 24.0, Anion Gap 9, BUN 14, Creatinine 0.75, Estim Creat Clear Calc 53.20, Est GFR (MDRD) Af Amer 127, Est GFR (MDRD) Non-Af 105, BUN/Creatinine Ratio 18.6, Glucose 141 H, Calcium 7.8 L, Total Bilirubin 1.00, AST 32, ALT 48, Alkaline Phosphatase 66, Total Protein 6.0 L, Albumin 2.3 L, Globulin 3.7, Albumin/Globulin Ratio 0.6 L 07/21/19 05:44: WBC 12.4 H, RBC 4.18 L, Hgb 12.9 L, Hct 38.7 L, MCV 92.6, MCH 30.9, MCHC 33.3, RDW Std Deviation 45.1 H, RDW Coeff of Matteo 13.2, Plt Count 166, MPV 11.4, Immature Gran % (Auto) 1.100 H, Neut % (Auto) 82.3 H, Lymph % (Auto) 5.4 L, [place] % (Auto) 10.1 H, Eos % (Auto) 0.6, Baso % (Auto) 0.5, Absolute Neuts (auto) 10.2 H, Absolute Lymphs (auto) 0.67 L, Nucleated RBC % 0 07/21/19 05:44: Magnesium 2.5 07/21/19 06:15: POC Glucose 131 H Current Medications Acetaminophen (Tylenol) 650 mg PO Q6H PRN PRN PRN Reason: Non-cardiac pain (mod-severe) Hydrocodone Bitart/Acetaminophen (Laurel 5mg-325mg) 1 - 2 tablet PO Q4H PRN PRN PRN Reason: Pain Score 4-10/10 Al Hydroxide/Mg Hydroxide (Mylanta Ii) 15 - 30 ml PO Q4H PRN PRN PRN Reason: INDIGESTION Albuterol Sulfate (Ventolin Aerosols) 2.5 mg INHALATION Q2H PRN PRN PRN Reason: dyspnea, wheezing Dextrose (D50w Syringe) 0 gm IV X1 PRN; Protocol PRN Reason: Hypoglycemia Diltiazem HCl (Cardizem Cd) 120 mg PO DAILY [facility] Last Admin: 07/21/19 10:33 Dose: 120 mg Documented by: Finasteride (Proscar) 5 mg PO QHS [facility] Last Admin: 07/20/19 21:44 Dose: 5 mg Documented by: Glucagon () 1 mg IM .X1 PRN PRN Reason: Hypoglycemia Hydralazine HCl (Apresoline Iv) 10 mg IV Q4H PRN PRN PRN Reason: SBP > 160 Sodium Chloride () 1,000 mls @ 50 mls/hr IV .Q20H [facility] Last Infusion: 07/21/19 06:00 Dose: 50 mls/hr Documented by: Piperacillin Sod/Tazobactam (Sod 3.375 gm/ Sodium Chloride) 50 mls @ 12.5 mls/hr IV Q8 [facility] Last Infusion: 07/21/19 09:08 Dose: Infused Documented by: Famotidine 20 mg/ Sodium (Chloride) 10 mls @ 300 mls/hr IV Q12 [facility] Last Infusion: 07/21/19 10:11 Dose: Infused Documented by: Insulin Human Lispro (Humalog Kwikpen (Bkc)) 0 unit SC Q6 [facility]; Protocol Last Admin: 07/21/19 06:31 Dose: Not Given Documented by: Magnesium Hydroxide (Milk Of Magnesia) 30 ml PO DAILY PRN PRN Reason: Constipation Morphine Sulfate () 1 - 2 mg IV Q4H PRN PRN PRN Reason: Pain Score 1-10/10 Nitroglycerin (Nitrostat) 0.4 mg SUBLINGUAL Q5M PRN PRN Reason: CARDIAC/CHEST PAIN Ondansetron HCl (Zofran) 4 mg IV Q8H PRN PRN PRN Reason: NAUSEA/VOMITING Sodium Chloride () 10 - 40 ml IV UD PRN PRN Reason: SALINE FLUSH Last Admin: 07/19/19 21:19 Dose: 20 ml Documented by: Warfarin Sodium (Coumadin (Pbkc)) 7.5 mg PO DAILY@1700 [facility] Discharge Diet: Light diet - advance as tolerated Discharge Activity: May Not Drive - for 2-3 days or while taking narcotic pain medications., - - Do not drive, work heavy equipment or sign legal documents for 24 hours. May shower in (days): 1 - with the bandage in place. Additional Activity Instructions:: Pain medication may cause nausea. You should typically eat light foods as you take your pain medications. Pain medication may also cause constipation. If this is a problem for you, please discuss with your doctor. Call your doctor if your incision/area has: Continuous Slow Oozing, Sudden Increased Bleeding, Increased Pain/ Swelling, Increased Redness, Foul Smelling Discharge Call your doctor if you observe: Fever of 101 or Higher Suture Line Care: Avoid Pulling/Pushing, Avoid Pinching/Bending Additional Dressing/Incision Instructions:: Leave operative bandaids on for 2 days. When you remove dressing, leave Steri-Strips on until your follow-up appointment, or until the Steri-Strips fall off on their own. Home Medications: Medications to take at Discharge Cholecalciferol (Vitamin D3) [Vitamin D3] 2,000 unit PO DAILY 07/18/19 Docusate Sodium [Dulcolax Stool Softener] 100 mg PO QHS 07/18/19 Finasteride 5 mg PO QHS 07/18/19 Warfarin Sodium 7.5 mg PO SUTUTHSA 07/18/19 Warfarin Sodium 10 mg PO MOWEFR 07/18/19 Diltiazem CD [Cardizem CD] 120 mg PO DAILY #30 cap 07/21/19 Oxycodone HCl/Acetaminophen [Percocet 5/325] 1 - 2 tab PO Q4H PRN PRN 6 Days #30 tab 07/21/19 Following Prescrptions Were Given to Patient: Diltiazem CD [Cardizem CD] 120 mg PO DAILY #30 cap Transmission Status: Received by [facility] Oxycodone HCl/Acetaminophen [Percocet 5/325] 1 - 2 tab PO Q4H PRN PRN 6 Days #30 tab PRN Reason: Pain Prescription Printed Primary Care Physician: Darrion Almodovar MD [NON-STAFF] - Please follow up with your Primary Care Physician in: 1 Week Please Follow Up With: Manpreet Gleason MD - Please call [phone] to schedule an appointment. When: 7 days after your surgery. Please Follow Up With: Lev Perez MD When: 1-2 weeks, may see [employer] Disposition: Home Minutes spent on discharge:: 35 Patient Condition:: Stable Medical Necessity - Tobacco Use Smoking Status: Former smoker - Patient quit cigarette tobacco usage approximate 4 years prior. Tobacco Use: Non-smoker Meaningful Use Info Meaningful Use Diagnoses (Choose all that apply): None applicable <Colten Sheffield - Last Filed: 07/21/19 16:13> Discharge Date and Diagnosis - Secondary Discharge Diagnosis Chronic Problems (Last Reviewed 07/19/19 @ 08:17 by Sandrine Gaytan PA-C) History stage IV bladder cancer (Chronic) HTN (hypertension) (Chronic) HLD (hyperlipidemia) (Chronic) Diabetes (Chronic) Longstanding persistent atrial fibrillation (Chronic) Hospital Course and Treatment Summary of Care Provided: This patient was seen in conjunction with [employer], Cinthia. I have independently interviewed and examined the patient and reviewed pertinent history, examination findings, laboratory and plan of management. I have reviewed the note and agree with the documented findings with the few additional points. In brief, patient is admitted for severe sepsis secondary to acute cholelithiasis complicating into acute gallstone pancreatitis. Patient also has multiple comorbidities including chronic A. fib on Coumadin, hypertension, dyslipidemia history of mesenteric ischemia, history of bladder cancer status post resection 1 diabetes mellitus type 2. Coumadin was held and vitamin K was given. INR normal. Patient underwent laparoscopic cholecystectomy on 07/20/2019. Surgical care as per Dr. Gleason. Patient also had chronic A. fib with RVR rate was controlled. Solution Developer was contacted. Coumadin is on hold prior to surgery and surgery. Coumadin can be resumed in evening today. Follow-up PT/INR on Wednesday with PCP. Patient was initially on Cardizem drip which transition to oral Cardizem CD 120 mg daily. Prescription given for Cardizem CD. Her other comorbidities are stable including hypertension, dyslipidemia, stable. History of bladder cancer status post TURBT in remission. Diabetes mellitus type 2 blood sugars are controlled. On Accu-Chek before meals and at bedtime cover with Humalog sliding scale. Discharge medication reconciliation done. Discharge follow-up instructions completed. Discharge process discussed with the patient and all questions were answered to patient's satisfaction. Total time spent, exact 35 minutes on discharge meds reconciliation, examination, review of imaging and blood test and discussion with the patient on follow-up instructions. I have discussed my assessment with [employer] and orders have been reviewed. [] Subjective: Seen and examined. ALFREDO drain removed. Patient denies any abdominal pain; on regular diet. No fever or chills. No tachycardia. Hemodynamically stable. - Physical Exam Vitals/I&O's: Vital Signs Temp Pulse Resp BP Pulse Ox 97.6 F L 95 20 H 134/64 H 94 07/21/19 11:39 07/21/19 11:39 07/21/19 11:39 07/21/19 11:39 07/21/19 15:05 Oxygen Flow Rate (L/min) 2 Oxygen Delivery Method Room Air Weight: 186 lb 9.588 oz Body Mass Index (BMI) 28.3 Finger Stick Blood Glucose 127 Intake and Output for Last 24 Hours 07/19/19 07/20/19 07/21/19 23:59 23:59 23:59 Intake Total 2551.29 / 2551.46 4925.63 / 4925.63 1045.09 / 1045.09 Output Total 1050 / 1050 2090 / 2090 680 / 680 Balance 1501.29 / 1501.46 2835.63 / 2835.63 365.09 / 365.09 General: Alert, Oriented x3, Cooperative HEENT: Atraumatic, PERRLA, EOMI, Normocephalic Neck: Supple, No JVD, Negative Carotid Bruits Lungs: Clear to auscultation, No rhonchi, No wheeze, No rales, Diminished - Air entry diminished on bilateral lung bases Cardiovascular: Regular rate, No murmurs Abdomen: Bowel Sounds Present, Soft, Non-Distended, Tender - Mild tenderness over right upper quadrant expected. ALFREDO drain removed. Extremities: No edema, Capillary Refill Less than 3 Seconds Skin: No rashes, No breakdown Musculoskeletal: No Tenderness to Palpation of Joints or Extremities, Arthritic Changes Neurological: Cranial nerves II-XII grossly intact, Deep Tendon Reflexes 2+/4 and Symmetrical, Neuro grossly intact Psych/Mental Status: Normal Affect, Appropriate Microbiology Past 72 Hours 07/18/19 13:29 Blood Culture (Wb) - Left Hand Blood Culture - Preliminary No growth in 48 hours. 07/18/19 13:36 Blood Culture (Wb) - Anticubital Left Blood Culture - Preliminary No growth in 48 hours. Laboratory Results 07/20/19 17:08: POC Glucose 151 H 07/21/19 00:28: POC Glucose 135 H 07/21/19 05:44: Sodium 142, Potassium 3.5, Chloride 109 H, Carbon Dioxide 24.0, Anion Gap 9, BUN 14, Creatinine 0.75, Estim Creat Clear Calc 53.20, Est GFR (MDRD) Af Amer 127, Est GFR (MDRD) Non-Af 105, BUN/Creatinine Ratio 18.6, Gluco se 141 H, Calcium 7.8 L, Total Bilirubin 1.00, AST 32, ALT 48, Alkaline Phosphatase 66, Total Protein 6.0 L, Albumin 2.3 L, Globulin 3.7, Albumin/Globulin Ratio 0.6 L 07/21/19 05:44: WBC 12.4 H, RBC 4.18 L, Hgb 12.9 L, Hct 38.7 L, MCV 92.6, MCH 30.9, MCHC 33.3, RDW Std Deviation 45.1 H, RDW Coeff of Matteo 13.2, Plt Count 166, MPV 11.4, Immature Gran % (Auto) 1.100 H, Neut % (Auto) 82.3 H, Lymph % (Auto) 5.4 L, [place] % (Auto) 10.1 H, Eos % (Auto) 0.6, Baso % (Auto) 0.5, Absolute Neuts (auto) 10.2 H, Absolute Lymphs (auto) 0.67 L, Nucleated RBC % 0 07/21/19 05:44: Magnesium 2.5 07/21/19 06:15: POC Glucose 131 H 07/21/19 12:36: POC Glucose 222 H Current Medications Acetaminophen (Tylenol) 650 mg PO Q6H PRN PRN PRN Reason: Non-cardiac pain (mod-severe) Hydrocodone Bitart/Acetaminophen (Laurel 5mg-325mg) 1 - 2 tablet PO Q4H PRN PRN PRN Reason: Pain Score 4-10/10 Al Hydroxide/Mg Hydroxide (Mylanta Ii) 15 - 30 ml PO Q4H PRN PRN PRN Reason: INDIGESTION Albuterol Sulfate (Ventolin Aerosols) 2.5 mg INHALATION Q2H PRN PRN PRN Reason: dyspnea, wheezing Dextrose (D50w Syringe) 0 gm IV X1 PRN; Protocol PRN Reason: Hypoglycemia Diltiazem HCl (Cardizem Cd) 120 mg PO DAILY [facility] Last Admin: 07/21/19 10:33 Dose: 120 mg Documented by: Finasteride (Proscar) 5 mg PO QHS [facility] Last Admin: 07/20/19 21:44 Dose: 5 mg Documented by: Glucagon () 1 mg IM .X1 PRN PRN Reason: Hypoglycemia Hydralazine HCl (Apresoline Iv) 10 mg IV Q4H PRN PRN PRN Reason: SBP > 160 Sodium Chloride () 1,000 mls @ 50 mls/hr IV .Q20H [facility] Last Infusion: 07/21/19 15:51 Dose: Infused Documented by: Piperacillin Sod/Tazobactam (Sod 3.375 gm/ Sodium Chloride) 50 mls @ 12.5 mls/hr IV Q8 [facility] Last Admin: 07/21/19 15:52 Dose: Not Given Documented by: Famotidine 20 mg/ Sodium (Chloride) 10 mls @ 300 mls/hr IV Q12 [facility] Last Infusion: 07/21/19 10:11 Dose: Infused Documented by: Insulin Human Lispro (Humalog Kwikpen (Bkc)) 0 unit SC Q6 [facility]; Protocol Last Admin: 07/21/19 12:41 Dose: Not Given Documented by: Magnesium Hydroxide (Milk Of Magnesia) 30 ml PO DAILY PRN PRN Reason: Constipation Morphine Sulfate () 1 - 2 mg IV Q4H PRN PRN PRN Reason: Pain Score 1-10/10 Nitroglycerin (Nitrostat) 0.4 mg SUBLINGUAL Q5M PRN PRN Reason: CARDIAC/CHEST PAIN Ondansetron HCl (Zofran) 4 mg IV Q8H PRN PRN PRN Reason: NAUSEA/VOMITING Sodium Chloride () 10 - 40 ml IV UD PRN PRN Reason: SALINE FLUSH Last Admin: 07/19/19 21:19 Dose: 20 ml Documented by: Warfarin Sodium (Coumadin (Pbkc)) 7.5 mg PO DAILY@1700 [facility] Code Visit Inpatient E&M: [id number] [facility]
--- NOTE | 2019-07-21 12:24 | PHA.DC.MC ---
Pharmacy Service has performed discharge medication reconciliation and counseling for this patient. The patient's discharge medication list was reviewed for discrepancies and discrepancies were resolved. The patient was counseled on the following discharge medications and changes in medications for homegoing were reviewed. 1. DILTIAZEM The Reason for Use, instructions for use, and potential side effects were reviewed for all new medications. The patient's questions regarding all of their medications were answered. The patient demonstrated some understanding but would benefit from further education and reinforcement.
[2019-07-21 12:40] LABS: Bedside Glucose 222 mg/dL (70-110)
--- NOTE | 2019-07-21 13:10 | CASEMGMT ---
This RN CM to room to discuss therapy recommendation for further skilled PT at discharge and possible home oxygen. Pt is up in chair and at bedside at this time. Pt declines any further therapy at this time and states He needs to get home before we will know if he needs anything. Pt/ aware that if pt feels he needs therapy once home that they can call PCP, voices understanding. Pt/ aware that pt's oxygen level did drop to 88% briefly while ambulating and states They did not take that oxygen off till I got here this morning and I know people get addicted to that oxygen. He just needs to learn how to breath again and I have been working on him taking deep breaths. Pt/ do not feel like oxygen will be necessary at discharge. Pt had not really been up since OR yesterday. Cierra VALDES to check pulse ox later now that pt up in chair and using incentive spirometer. This RN CM to follow. Pt/ voice no further questions/concerns/needs at this time. Nikki RN CM
--- NOTE | 2019-07-21 15:29 | CASEMGMT ---
Per Cierra VALDES, pt does not qualify home oxygen at this time. Denny FOOTE aware, voices understanding. Pt ready for discharge. Nikki VALDES
== END 2019-07-21 16:34 | disposition home or self-care (01) | DRG 853 ==
LOC: ED 14:03 → PCU 14:23
PROVIDERS: Anesthesiology; Surgery; Admitting Provider Family Medicine; Emergency Provider Emergency Medicine; Family Provider Family Medicine; PCP Family Medicine; Visit Provider Internal Medicine
PROC: 0FT44ZZ Resection of Gallbladder, Percutaneous Endoscopic Approach (ICD-10-PCS; CPT 47610; principal; 2019-07-20 09:55)
DX: A41.9 Sepsis, unspecified organism (principal); K85.10 Biliary acute pancreatitis without necrosis or infection; K80.00 Calculus of gallbladder with acute cholecystitis without obstruction; I48.20 Chronic atrial fibrillation, unspecified; R65.20 Severe sepsis without septic shock; N40.0 Benign prostatic hyperplasia without lower urinary tract symptoms; Z23 Encounter for immunization; E11.9 Type 2 diabetes mellitus without complications; I10 Essential (primary) hypertension; E78.5 Hyperlipidemia, unspecified; K21.9 Gastro-esophageal reflux disease without esophagitis; Z85.51 Personal history of malignant neoplasm of bladder; Z79.01 Long term (current) use of anticoagulants; Z87.19 Personal history of other diseases of the digestive system; Z87.891 Personal history of nicotine dependence
CPT/HCPCS: 36415; 76705; 80048; 80053; 82962; 83036; 83605; 83690; 83735; 84484; 85025; 85610; 87040; 88304; 93005; 97162; 97166; 97802; 99285; G0008; J7030; J7040; J7120; 90686; A4216; J2405; J3490

== ENCOUNTER 2019-07-23 22:34 | Emergency (ER) | payer MEDICARE, BC, SELFPAY ==
[2019-07-21 15:01] VITALS: BMI 28.3
[2019-07-23] VITALS (7 sets, daily range): BP systolic 122–143; BP diastolic 68–87; PULSE 95–115; RESP 18–20; TEMP 36.8; O2SAT 93–98; BMI 29.8
--- NOTE | 2019-07-23 22:40 | CT_ITS ---
STUDY: CT BRAIN WITHOUT CONTRAST REASON FOR EXAM: Male, 84 years old. Mental status change RADIATION DOSAGE (If Supplied By Facility): CTDIvol = ( 44.99 ) mGy, DLP = ( 812.98 ) mGycm TECHNIQUE: Transaxial CT imaging of the brain was performed without administration of intravenous contrast material. Individualized dose optimization techniques were used for this CT. COMPARISON: No relevant priors. FINDINGS: Normal soft tissue structures. Normal calvarium. High in the left temporal convexity is a isodense to brain extra axial mass measuring 4.1 x 2.7 x 3.1 cm. There is localized mass effect and some associated edema but there is no midline shift. The coronal images show a thin rim of hyperdensity at its interface with the normal brain parenchyma which may represent a small area of parenchymal hemorrhage. Normal size ventricles and extra-axial spaces for the patient's age. Normal white matter tracts of the cerebral hemispheres. Normal basal ganglia and thalami. Normal brainstem. Normal cerebellum. There is no intracranial hemorrhage. There are no findings of an acute ischemic infarction. Normal visualized paranasal sinuses. CT/Brain/Head without Contrast IMPRESSION: Isodense to brain extra-axial mass suspected high in the left temporal convexity best seen on axial image 32 and coronal recon image 42. I suspect this may represent a meningioma. Further evaluation with MRI or CT with IV contrast recommended. There is localized mass effect upon the sulci and gyral pattern and some associated edema. Also at the interface between this mass and the brain parenchyma is a thin rim of hyperdensity suggesting focal hemorrhage. Age-related changes elsewhere. N.B. : The above information has been verbally conveyed by Keaton Urias MD to Dr. Rayna MD, on 07/23/2019 22:59:54 (ET). Electronically Signed: Keaton Urias MD at 23:02 EST , Service support ,
--- NOTE | 2019-07-23 22:40 | EKG12_ITS ---
Test Reason : ABD PAIN Blood Pressure : / mmHG Vent. Rate : 129 BPM Atrial Rate : 133 BPM P-R Int : 000 ms QRS Dur : 088 ms QT Int : 314 ms P-R-T Axes : 000 020 241 degrees QTc Int : 460 ms Atrial fibrillation with rapid ventricular response Nonspecific ST and T wave abnormality Abnormal ECG Confirmed by CL AGUILAR, KAMRYN ([id number]), book editor SHEA MARQUES ([id number]) on 07/25/2019 2:05:44 PM Referred By: GAYLE Confirmed By:KAMRYN SMALLWOOD MD
--- NOTE | 2019-07-23 22:40 | RAD_ITS ---
STUDY: X-RAY CHEST REASON FOR EXAM: Male, 84 years old. Weakness, facial droop TECHNIQUE: Single AP portable view of the chest. COMPARISON: None. FINDINGS: EKG leads overlie the chest The lungs are clear and expanded. There is no demonstrated pleural abnormality. Normal size heart. Normal mediastinum and marine. Normal visualized pulmonary arteries. Normal visualized aortic arch and descending thoracic aorta. Normal visualized thoracic spine. Normal visualized ribs, clavicles, and shoulders. There is no demonstrated abnormality of the visualized soft tissue structures of the upper abdomen. RAD/Chest 1 View IMPRESSION: No acute pulmonary process Electronically Signed: Keaton Urias MD at 23:06 EST , Service support ,
--- NOTE | 2019-07-23 22:41 | ED.DCSUM_ITS ---
History of Present Illness Chief Complaint: Neuro S/Sx Informant: Patient Onset: Today Narrative: Patient presents with reported acute onset of left-sided facial droop and slurred speech and left arm weakness. EMS was called to the house. stated he went to bed 30 minutes prior to calling EMS. He woke up with these deficits. Patient denies any complaints at this time. He does not feel like his left arm or leg are weak. He does have lower left facial droop and slight slurred speech. Patient had a cholecystectomy approximately a week ago at our facility without complication. He is on Coumadin for history of atrial fibrillation. Patient denies history of stroke. Denies drugs or alcohol. Blood sugar was greater than 200 for EMS. Patient has a history of diabetes but does not take medicine for it. - Past Medical History (1) Acute calculous cholecystitis Status: Acute (2) Acute gallstone pancreatitis Status: Acute (3) Anticoagulant long-term use Status: Acute (4) Atrial fibrillation with RVR Status: Acute (5) SMA occlusion Status: Acute (6) Severe sepsis Status: Acute (7) Diabetes Status: Chronic (8) HLD (hyperlipidemia) Status: Chronic (9) HTN (hypertension) Status: Chronic (10) History stage IV bladder cancer Status: Chronic (11) Longstanding persistent atrial fibrillation Status: Chronic Past Medical History - Allergies and Home Meds Allergies/Adverse Reactions: Allergies metformin Allergy (Severe, Verified 07/23/19 23:11) kidneys shut down Primary Care Physician: Nataliia Lim MD [Primary Care Provider] - Prior records reviewed: Yes Past Medical History: - - See problem list Surgical History: cholecystectomy, - Smoking Status: Former smoker Alcohol: None Drugs: None - Family History Maternal Family History: Family History (Last Reviewed 07/19/19 @ 08:17 by Sandrine Gaytan PA-C) Mother Cancer Brother Cancer Sister Cancer Sister Cancer Brother Myocardial infarction Family History: Reports: Cancer Paternal Family History: Family History (Last Reviewed 07/19/19 @ 08:17 by Sandrine Gaytan PA-C) Mother Cancer Brother Cancer Sister Cancer Sister Cancer Brother Myocardial infarction Family History: Reports: Heart Disease Review of Systems General: Denies: Chills, Fever, Sweats Eyes: Denies: Visual changes - bilaterally, Diplopia ENT: Denies: Rhinorrhea, Sore throat Cardiovascular: Denies: Chest pain, Palpitations Respiratory: Denies: Dyspnea, Cough, Dyspnea on exertion Gastrointestinal: Denies: Abdominal pain, Nausea, Vomiting, Diarrhea, Melena, Hematochezia Genitourinary: Denies: Dysuria, Hematuria, Frequency Musculoskeletal: Denies: Back pain, Extremity Pain Skin: Denies: Rash, Wounds Neurological: Reports: Weakness, - - See HPI. Denies: Headache, Numbness Endocrine: Denies: Polyuria, Polydipsia Physical Exam Vital Signs/Narrative: Vital Signs Temp Pulse Resp BP Pulse Ox 07/23/19 22:36 98.2 F 115 H 20 H 143/87 H 95 General: Well nourished, Well developed, No Acute Distress Head: Normocephalic, Atraumatic Eyes: Perrl, EOMI ENT: Moist mucous membranes, No rhinorrhea Neck: Supple, Nontender Cardiovascular: Regular rate, Regular rhythm, No murmurs Respiratory: No distress, CTA bilaterally, Chest nontender Abdomen: Soft, Nontender, Nondistended, Normal bowel sounds Back: Nontender, Normal Inspection Extremities: Nontender, No edema Skin: Normal color, No rash Neurological: Alert, Oriented x3, Normal Strength, Normal Sensation, Normal DTR, Left side facial droop, - - NIH stroke scale 2 secondary to left lower facial droop and mild slurred speech.. Negative for: Cranial nerves II-XII grossly intact, Confused, Disoriented Psychological: Normal affect, Normal Mood Diagnostic/Tx/Re-eval - Medical Decision Making CT head shows left-sided extra-axial mass with mild sulci and giant gyri displacement locally. Mild hyperemia locally. Discussed with the radiologist. He feels it is likely meningioma. Chest x-ray shows nothing acute. EKG shows atrial fibrillation at a rate of 102. No acute ischemia. PVC noted x1. INR came back 1.4. CBC shows no acute abnormalities. Patient discussed with the stroke neurologist who requested a level 1 transfer to [facility]. Patient just had surgery of his abdomen 3 days ago therefore will not be receiving TPA. This is a major contraindication to TPA. Patient in agreement. - Critical Care Time Critical care time (excluding procedures): 30-74 minutes ED Disposition - Plan for ED Patient: Disposition: [facility] Diagnosis: Stroke, Intracranial mass
[2019-07-23 22:49] LABS: Absolute Lymphocyte Count 1.35 X10^3/uL (0.83-4.51); Absolute Neutrophil Count 5.6 X10^3/uL (2.0-7.7); Basophil# 0.07 X10^3/uL; Basophil% 0.8 % (0-1); Eosinophil# 0.35 X10^3/uL; Hematocrit 41.7 % (40-54); Hemoglobin 14.3 g/dL (13.0-16.5); Lymphocyte # 1.35 X10^3/ul (4.0); Lymphocyte % 15.6 % (19-41); Mean Corp Hgb Conc 34.3 g/dL (32-36); Mean Corpuscular Hgb 31.2 pg (27.0-32.0); Mean Platelet Vol. 10.6 fl (6.2-12.0); Monocyte# 0.95 X10^3/uL; NRBC Flagged by Analyzer 0 % (0-5); Neutrophil # 5.58 X10^3/uL (2.7-7.7); Neutrophil % 64.4 % (47-70); Platelet Count 173 K/mm3 (150-450); RBC Distribution Width CV 13.1 % (11.6-14.6); RBC Distribution Width SD 42.9 fl (35.1-43.9); Red Blood Count 4.58 M/mm3 (4.6-6.2); White Blood Count 8.7 K/mm3 (4.4-11.0)
[2019-07-23 22:58] LABS: International Normalized Ratio 1.4; Prothrombin Time (Protime)PT. 17.3 SECONDS (11.7-14.9)
[2019-07-23 22:59] LABS: Partial Thromboplast Time 26.9 Seconds (24.1-36.2)
[2019-07-23 23:20] LABS: Anion Gap 7 (5-15); BUN 14 mg/dL (7-18); BUN/Creat Ratio 13.1 RATIO (10-20); Calcium,Total 8.5 mg/dL (8.5-10.1); Chloride 106 mmol/L (98-107); Creatinine, Serum 1.07 mg/dL (0.70-1.30); EST Glomerular Filtration Rate 70 mL/min (>60); Est Glom Filt Rate - Afr Amer 85 mL/min (>60); Estimated Creatinine Clearance 51.39 ml/min; Glucose 228 mg/dL (74-106); Potassium 3.7 mmol/L (3.5-5.1); Sodium Level 139 mmol/L (136-145)
== END 2019-07-23 23:58 | disposition short-term general hospital (02) ==
PROVIDERS: Emergency Provider Emergency Medicine; Family Provider Family Medicine; PCP Family Medicine
DX: I63.9 Cerebral infarction, unspecified (principal); D49.6 Neoplasm of unspecified behavior of brain; Z87.891 Personal history of nicotine dependence; E11.9 Type 2 diabetes mellitus without complications; E78.5 Hyperlipidemia, unspecified; I10 Essential (primary) hypertension; I48.11 Longstanding persistent atrial fibrillation; Z85.51 Personal history of malignant neoplasm of bladder
CPT/HCPCS: 70450; 71045; 80048; 84484; 85025; 85610; 85730; 93005; 99251; 99285; J7030; A4216; G0463

== ENCOUNTER 2019-08-29 10:44 | Outpatient (RCR) | payer MEDICARE, BC, SELFPAY ==
[2018-10-26 12:59] VITALS: BMI 29.6
[2019-07-23 23:08] VITALS: BMI 29.8
[2019-08-29 11:19] LABS: International Normalized Ratio 2.3; Prothrombin Time (Protime)PT. 25.1 SECONDS (11.7-14.9)
== END 2019-08-29 18:00 | disposition home or self-care (01) ==
LOC: LAB 10:44
PROVIDERS: Referring Provider Internal Medicine Cardiovascular Disease; Visit Provider Internal Medicine Cardiovascular Disease
DX: I48.11 Longstanding persistent atrial fibrillation (principal); Z79.01 Long term (current) use of anticoagulants
CPT/HCPCS: 36415; 85610

== ENCOUNTER 2019-10-06 11:33 | Outpatient (RCR) | payer MEDICARE, BC, SELFPAY ==
[2019-08-29 10:55] VITALS: BMI 26.4
[2019-09-29 13:23] LABS: International Normalized Ratio 1.6; Prothrombin Time (Protime)PT. 18.9 SECONDS (11.7-14.9)
[2019-10-06 12:45] LABS: International Normalized Ratio 2.1; Prothrombin Time (Protime)PT. 23.2 SECONDS (11.7-14.9)
== END 2019-10-06 18:00 | disposition home or self-care (01) ==
LOC: LAB 11:33
PROVIDERS: Family Provider Family Medicine; PCP Family Medicine; Referring Provider Internal Medicine Cardiovascular Disease; Visit Provider Internal Medicine Cardiovascular Disease
DX: I48.11 Longstanding persistent atrial fibrillation (principal); Z79.01 Long term (current) use of anticoagulants
CPT/HCPCS: 36415; 85610

== ENCOUNTER 2019-11-06 14:17 | Outpatient (RCR) | payer MEDICARE, BC, SELFPAY ==
[2019-08-29 10:55] VITALS: BMI 26.4
[2019-11-06 13:42] VITALS: BMI 25.2
[2019-11-06 16:12] LABS: International Normalized Ratio 2.3; Prothrombin Time (Protime)PT. 25.3 SECONDS (11.7-14.9)
== END 2019-11-06 18:00 | disposition home or self-care (01) ==
LOC: LAB 14:17
PROVIDERS: Family Provider Family Medicine; PCP Family Medicine; Referring Provider Internal Medicine Cardiovascular Disease; Visit Provider Internal Medicine Cardiovascular Disease
DX: I48.11 Longstanding persistent atrial fibrillation (principal); Z79.01 Long term (current) use of anticoagulants
CPT/HCPCS: 36415; 85610

== ENCOUNTER 2019-12-27 13:00 | Outpatient (RCR) | payer MEDICARE, BC, SELFPAY ==
[2019-08-29 10:55] VITALS: BMI 26.4
--- NOTE | 2019-10-23 14:38 | HP.PTEVAL_ITS ---
Patient's Visit Information SORAIDA PERES is a 84 year old M referred to Physical Therapy by Nataliia Lim MD with a diagnosis of STROKE, AMBULATION WEAKNESS.. Date of Evaluation: 10/23/19 Physical Therapist: Deborah Mantilla, PT, Cert MDT - Visit Plan Frequency: 2-3x /Week Duration: 4-6 Weeks Plan: PT 2-3 TIMES A WEEK X 6-8 WEEKS FOR GAIT TRAINING, BALANCE ACTIVITIES, TRANSFER TRAINING, LIAM LE GENERAL ROM, STRETCHING AND STRENGTHENING TO HELP MEET SET GOALS. PATIENT AND AGREEABLE. PATIENTS REPORTS SHE WOULD LIKE TO STAY WITH HER DURING THERPAPY TO SEE WHAT SHE CAN DO TO HELP HIM AT HOME. PROVIDE WRITTEN HEP. - Subjective Findings: DX: S/P CVA JUL 23 2019. PT ORDER FOR AMBULATION AND WEAKNESS. Work/Leisure: RETIRED. Disability: NO DISABILITY PRIOR TO STROKE. Present symptoms: WEAKNESS, MEMORY PROBLEMS, LEFT LE NEGLECT. LEFT LEG FEELS FUNNY AND HEAVY. OFF BALANCE. WALKING AT LEAST 50% OF THE TIME WITH A WALKER. OTHER TIMES USES CANE. RARELY GOES WITHOUT AD. TROUBLE REMEMBERING TO LIFT LEFT LEG. LEFT HIP PAIN WITH TOO MUCH WALKING. ARTHRITIS ALL OVER. Present since: JUL 23 2019 CVA. GALLBLADDER REMOVAL JUL 19 2019. CAME HOME FROM HOSPITAL Jul AND HAD STROKE IN THE NIGHT Jul. Pain Scale: LEFT HIP - 0-8/10. Currently: 0/10. Commenced as a result of: THINKS IT WAS THE LACK OF BLOOD THINNER. Symptoms at onset: SLURRED SPEECH. CALLED [facility]. Disturbed sleep: I SLEEP FINE. Previous history/Previous treatment: NO PREVIOUS STROKES. Gait: IT FEELS LIKE IT IS NUMB FROM THE KNEE DOWN ON THE LEFT AND IT IS HARD TO ORACLE FUSION MIDDLEWARE ARCHITECT LEFT LEG. NEEDS CANE OR WALKER ALMOST ALL THE TIME. Difficulty initiating urinatin: INCONTINENT NOW SINCE STROKE. Accidents: NO FALLS. Unexplained weight loss: YES - DOCTORS ARE AWARE. Imaging: MOST RECENT MRI OF BRAIN - JUL 2019 IN [place]. PMH: A-FIB, BPH, H/O BLADDER CANCER, PANCREATITIS, BACK PROBLEMS, BUT BLOOD CLOT - [place] SMALL BOWEL REMOVAL 2017. PLOF (Prior Level of Function): PRIOR TO THIS PATIENT HAD NORMAL ACTIVITY LEVEL OR ABOVE FOR AN 84 YO - RUNNER AND DID A LOT OF YARD WORK. OTHER: REMOVED THE CLOT IN [place] [address] UNTIL A[place] 18 2019. THERAPY AT HOME ALL OF AUGUST. NO THERAPY SINCE THEN. PATIENT IS HAVING MORE TROUBLE GETTING IN BED THAN GETTING OUT OF BED. NEEDS TO WEAR HEATHER HOSE TO CONTROL LLE SWELLING. PATIENT IS PROFOUNDLY DEAF PER WIFES REPORTS HOWEVER PATIENT DID PRETTY GOOD COMMUNICATING WITH THIS PT DURING SESSION HAS LIAM HEARING AIDES. - Objective THIS PATIENT WAS BROUGHT BACK TO PT IN A HEALTHPOINT W/C BY HIS . SHE STATES IT WILL BE QUICKER THIS WAY. PATIENT DEMO'D INDEP GAIT WITH STRAIGHT CANE X APPROX 10 FEET X 6 DURING THIS SESSION. HE DRAGS HIS LEFT LE INTERMITTENTLY. HE REQUIRES SUPERVISION WITH GAIT AND TRANSFERS FOR SAFETY. HIS GAIT IS SLOW WITH INCREASED TRUNK FLEXION AND VERY SHORT STRIDE LENGTH. HE HAS TO STOP AND THINK HOW TO TRANSFER FROM SIT TO STAND BUT RISES FROM SITTING MUCH QUICKER. THIS COINCIDES WITH WHAT WAS REPORTED ABOUT GETTING IN AND OUT OF BED. STANDING BALANCE IS FAIR. DYNAMIC BALANCE IS FAIR -. HE HAS GOOD RIGHT LE STRENGTH AND COORDINATION. LEFT LE SPASTICITY. HE IS UNABLE TO FULLY EXTEND HIS LEFT KNEE IN SITTING. LLE STRENGTH: HIP GROSSLY 4-/5, KNEE 3-/5, ANKLE DORSIFLEXION 2+/5. POOR CORE STRENGTH. PATIENT IS A GOOD CANDIDATE FOR OUT- PATIENT PHYSICAL THERAPY. - Goals Goal 1:: INDEP AND SAFE GAIT ON ALL SURFACES WITH LEAST ASSISTIVE DEVICE. Goal Time Frame: 4-6 Weeks Goal 2:: IMPROVE LIAM LE FUNCTIONAL ROM Goal Time Frame: 4-6 Weeks Goal 3:: IMPROVE LIAM LE AND CORE FUNCTIONAL STRENGTH TO EASE ADL'S Goal Time Frame: 4-6 Weeks Goal 4:: PATINT WILL INDEP WITH A HEP (WITH THE HELP OF HIS CAREGIVER NEEDED) FOR - Rehabilitation Potential Rehabilitation Potential: Fair - Anticipated Interventions Patient/Client Instruction: Educate patient on: Condition, Plan of Care, Risk Factors, Benefits of Fitness Program For the Purpose of:: To improve self management Therapeutic Exercise to Include: Strength training, Endurance training, Balance training, Coordination, Body mechanics, Postural training, Flexibilty training, Gait and locomotor training, Neuromotor development, Dynamic Lumbar Stabilization For the Purpose of:: To decrease pain, To improve muscle performance and motor function, To improve ability to perform ADL's, To increase tolerance to activity/condition/position, To decrease level of supervision to perform tasks, To improve ability of physical actions for home/community/work/leisure, To improve gait and locomotor functions, To increase flexibility/ROM, To improve endurance, To improve balance, To improve safety with gait Thank you for the opportunity to evaluate your patient. For Medicare and Medicare HMO plans, please review the plan of care and approve it. It will need to be FAXED BACK to us at [phone] for Medicare purposes. For Medicare only, by signing this I certify the plan of care. Please let me know if there are questions or concerns regarding this plan of care. Physician Signature: Date:
--- NOTE | 2019-11-13 11:24 | HP.PTREVAL ---
Nataliia Lim MD, It has been my pleasure to treat SORAIDA PERES over the last 8 visits for STROKE, AMBULATION WEAKNESS.. Please see the progress note below for an update on the physical therapy plan of care! Subjective: Patient feels like getting stronger . Ex stairs. No falls. Occasioanlly walks at home without cane Objective/Function: POSTURE: mild foward posture,hips/knees flexed. GAIT: ambulates with cane with externl rotation left leg hip/knee flexed drags left foot. BALANCE: fair+ with cane. TONE: mild/mod hypertonicity left leg. MMT: hip flexion 3+/5,quads 3+/5,hams 4-/5,ankle 4-/5. FLEXABLITY: hams mod tight Plan Plan: Continue with poc 3/wk for 3weeks gait training, strengthening as indicated in plan of care. Goals Goal 1:: INDEP AND SAFE GAIT ON ALL SURFACES WITH LEAST ASSISTIVE DEVICE. Goal Time Frame: 4-6 Weeks Goal Progress: Progressing Goal 2:: IMPROVE LIAM LE FUNCTIONAL ROM Goal Time Frame: 4-6 Weeks Goal Progress: Progressing Goal 3:: IMPROVE LIAM LE AND CORE FUNCTIONAL STRENGTH TO EASE ADL'S Goal Time Frame: 4-6 Weeks Goal Progress: Progressing Goal 4:: PATINT WILL INDEP WITH A HEP (WITH THE HELP OF HIS CAREGIVER NEEDED) FOR Goal Progress: Progressing Anticipated Interventions Patient/Client Instruction: Educate patient on: Condition, Plan of Care, Risk Factors, Benefits of Fitness Program For the Purpose of:: To improve self management Therapeutic Exercise to Include: Strength training, Endurance training, Balance training, Coordination, Body mechanics, Postural training, Flexibilty training, Gait and locomotor training, Neuromotor development, Dynamic Lumbar Stabilization For the Purpose of:: To decrease pain, To improve muscle performance and motor function, To improve ability to perform ADL's, To increase tolerance to activity/condition/position, To decrease level of supervision to perform tasks, To improve ability of physical actions for home/community/work/leisure, To improve gait and locomotor functions, To increase flexibility/ROM, To improve endurance, To improve balance, To improve safety with gait Please do not hesitate to contact me at [phone] by phone or if you have questions or concerns regarding this new plan of care! Sincerely, Edward Meredith, PT, Cert MDT, OCS
--- NOTE | 2019-12-06 12:32 | HP.PTREVAL_ITS ---
Nataliia Lim MD, It has been my pleasure to treat SORAIDA PERES over the last 15 visits for STROKE, AMBULATION WEAKNESS.. Please see the progress note below for an update on the physical therapy plan of care! Subjective: PATIENT REPORTS THERAPY IS HELPING AND HE IS WALKING BETTER. REPORTS HE IS BENDING HIS KNEES MORE WHEN HE WALKS AND HIS LEGS ARE STRONGER. STATES HE IS ABLE TO STAND AT THE SINK TO LOAD THE COMPOSITE TECHNICIAN NOW. PATIENT AND HIS AGREE THAT THERAPY IS HELPING A LOT AND HE NEEDS TO KEEP COMING. Objective/Function: PATIENT WAS SEEN TODAY FOR RE-ASSESSMENT OF PROGRESS TOWARD THE SET PT GOALS AND THE NEED FOR FURTHER PHYSICAL THERAPY VS READINESS FOR DISCHARGE. PATIENTS IS HERE TODAY TO HELP HIM FILL OUT THE LEFS. STATES HE COULDN'T SEE IT WITHOUT HIS GLASSESS LAST TIME. PATIENT IS MAKING SLOW PROGRESS TOWARD ALL PT GOALS AND IS A GOOD CANDIDATE TO CONTINUE PT BASED ON PROGRESS MADE AND ROOM FOR FURTHER IMPROVEMENT. HIS GAIT AND BALANCE IS IMPROVING. TODAY HE WAS ABLE TO WALK ALL THE WAY BACK TO THE TREATMENT ROOM WITH HIS CANE AND AT INITIAL EVAL WAS BROUGHT BACK IN A W/C. HE DOES LOOSE HIS BALANCE AND IS EASILY DISTRACTED BUT RE-GAINS HIS BALANCE INDEP'LY. UPON EXAM TODAY: POSTURE: mild foward posture,hips/knees flexed. GAIT: ambulates with cane with externl rotation left leg hip/knee flexed drags left foot. HE HAS A SPASTIC TYPE GAIT PATTERN WITH THE LLE. BALANCE: fair+ with cane. TONE: mild/mod hypertonicity left LE. LLE STRENGTH: HIP FLEX 4-/5, KNEE EXT 3-/5, KNEE FLEX 4-/5. ABLE TO GET LEFT KNEE INTO FULL EXTENSION IN LYING BUT NOT SITTING WHICH APPEARS TO BE DUE TO TIGHTNESS AND WEAKNESS. VERY TIGHT LIAM HS'S AND GASTROC SOLEUS COMPLEX'S. OTHER: PATIENT IS ABLE TO INDEP'LY TRANSFER FROM SIT TO STAND, STAND TO SIT, SIT TO SUPINE AND SUPINE TO SIT WITH UE ASSIST. Plan Plan: CONTINUE SKILLED PT 3X'S A WEEK X 10 MORE VISITS FOR GAIT TRAINING, BALANCE ACTIVITIES, TRANSFER TRAINING, LIAM LE GENERAL ROM, STRETCHING AND STRENGTHENING TO HELP MEET SET GOALS. PLEASE INCLUDE MANUAL TRUNK AND LLE ROM AND STRETCHING. PATIENT AND AGREEABLE. PROVIDE WRITTEN HEP. Goals Goal 1:: INDEP AND SAFE GAIT ON ALL SURFACES WITH LEAST ASSISTIVE DEVICE. Goal Time Frame: 4-6 Weeks Goal Progress: Progressing Goal 2:: IMPROVE LIAM LE FUNCTIONAL ROM Goal Time Frame: 4-6 Weeks Goal Progress: Progressing Goal 3:: IMPROVE LIAM LE AND CORE FUNCTIONAL STRENGTH TO EASE ADL'S Goal Time Frame: 4-6 Weeks Goal Progress: Progressing Goal 4:: PATINT WILL INDEP WITH A HEP (WITH THE HELP OF HIS CAREGIVER NEEDED) FOR Goal Progress: Progressing Anticipated Interventions Patient/Client Instruction: Educate patient on: Condition, Plan of Care, Risk Factors, Benefits of Fitness Program For the Purpose of:: To improve self management Therapeutic Exercise to Include: Strength training, Endurance training, Balance training, Coordination, Body mechanics, Postural training, Flexibilty training, Gait and locomotor training, Neuromotor development, Dynamic Lumbar Stabilization For the Purpose of:: To decrease pain, To improve muscle performance and motor function, To improve ability to perform ADL's, To increase tolerance to activity/condition/position, To decrease level of supervision to perform tasks, To improve ability of physical actions for home/community/work/leisure, To improve gait and locomotor functions, To increase flexibility/ROM, To improve endurance, To improve balance, To improve safety with gait Please do not hesitate to contact me at [phone] by phone or if you have questions or concerns regarding this new plan of care! Sincerely, Deborah Mantilla, PT, Cert MDT
== END 2019-12-27 19:00 | disposition home or self-care (01) ==
LOC: PT 13:00
PROVIDERS: PCP Family Medicine; Referring Provider Family Medicine; Visit Provider Family Medicine
DX: I63.511 Cerebral infarction due to unspecified occlusion or stenosis of right middle cerebral artery (principal)
CPT/HCPCS: 97110; 97116; 97162; 97164; 97530

== ENCOUNTER 2020-01-02 12:41 | Outpatient (RCR) | payer MEDICARE, BC, SELFPAY ==
[2020-01-02 14:04] LABS: International Normalized Ratio 2.2; Prothrombin Time (Protime)PT. 23.8 SECONDS (11.7-14.9)
== END 2020-01-11 18:00 | disposition home or self-care (01) ==
LOC: LAB 12:41
PROVIDERS: Family Provider Family Medicine; PCP Family Medicine; Referring Provider Internal Medicine Cardiovascular Disease; Visit Provider Internal Medicine Cardiovascular Disease
DX: I48.19 Other persistent atrial fibrillation (principal); Z79.01 Long term (current) use of anticoagulants
CPT/HCPCS: 36415; 85610

== ENCOUNTER 2020-02-08 12:50 | Outpatient (RCR) | payer MEDICARE, BC, SELFPAY ==
[2020-02-08 14:20] LABS: International Normalized Ratio 2.2; Prothrombin Time (Protime)PT. 24.1 SECONDS (11.7-14.9)
== END 2020-02-08 18:00 | disposition home or self-care (01) ==
LOC: LAB 12:50
PROVIDERS: Family Provider Family Medicine; PCP Family Medicine; Referring Provider Internal Medicine Cardiovascular Disease; Visit Provider Internal Medicine Cardiovascular Disease
DX: I48.19 Other persistent atrial fibrillation (principal); Z79.01 Long term (current) use of anticoagulants
CPT/HCPCS: 36415; 85610

== ENCOUNTER → 2020-03-22 11:46 | Outpatient (CLI) | payer MEDICARE, BC, SELFPAY ==
[2020-03-22 15:21] LABS: Absolute Lymphocyte Count 1.43 X10^3/uL (0.83-4.51); Absolute Neutrophil Count 4.3 X10^3/uL (2.0-7.7); Basophil# 0.05 X10^3/uL; Basophil% 0.8 % (0-1); Eosinophil# 0.07 X10^3/uL; Eosinophils% 1.1 % (0-5); Hematocrit 43.8 % (40-54); Hemoglobin 14.7 g/dL (13.0-16.5); Lymphocyte # 1.43 X10^3/ul (4.0); Lymphocyte % 22.5 % (19-41); Mean Corp Hgb Conc 33.6 g/dL (32-36); Mean Corpuscular Hgb 31.1 pg (27.0-32.0); Mean Corpuscular Volume 92.6 fL (80-94); Mean Platelet Vol. 11.4 fl (6.2-12.0); Monocyte# 0.48 X10^3/uL; Monocyte% 7.5 % (0-10); NRBC Flagged by Analyzer 0 % (0-5); Neutrophil # 4.31 X10^3/uL (2.7-7.7); Neutrophil % 67.8 % (47-70); Platelet Count 159 K/mm3 (150-450); RBC Distribution Width CV 13.4 % (11.6-14.6); RBC Distribution Width SD 45.5 fl (35.1-43.9); Red Blood Count 4.73 M/mm3 (4.6-6.2); White Blood Count 6.4 K/mm3 (4.4-11.0)
[2020-03-22 15:30] LABS: International Normalized Ratio 2.2; Prothrombin Time (Protime)PT. 23.9 SECONDS (11.7-14.9)
[2020-03-22 15:38] LABS: Vitamin B12 292 pg/mL (211-911); Vitamin D,25 Hydroxy 33.9 ng/mL
[2020-03-22 16:13] LABS: AST(SGOT) 14 U/L (15-37); Alanine Aminotransfer ALT/SGPT 27 U/L (16-61); Albumin, Serum 3.9 g/dL (3.2-5.0); Alkaline Phosphatase 61 U/L (45-117); Bilirubin, Direct 0.18 mg/dL (0.00-0.30); Ferritin 136 ng/mL (26-388); Globulin 3.3 g/dL (2.2-4.2); Iron 91 ug/dL (65-175); Iron Binding Capacity,Total 345 ug/dL (250-450); Prealbumin 23.6 mg/dL (20.0-40.0); Protein, Total 7.2 g/dL (6.4-8.2); Thyroid Stim Hormone (TSH) 1.61 uIU/mL (0.358-3.74)
== END ==
PROVIDERS: PCP Family Medicine; Visit Provider Family Medicine
DX: I63.511 Cerebral infarction due to unspecified occlusion or stenosis of right middle cerebral artery (principal); Z79.01 Long term (current) use of anticoagulants; Z85.51 Personal history of malignant neoplasm of bladder; R63.4 Abnormal weight loss; N40.0 Benign prostatic hyperplasia without lower urinary tract symptoms; E11.9 Type 2 diabetes mellitus without complications; E55.9 Vitamin D deficiency, unspecified
CPT/HCPCS: 36415; 80076; 82306; 82607; 82728; 82746; 83540; 83550; 84134; 84443; 85025; 85610

== ENCOUNTER 2020-04-29 10:32 | Outpatient (RCR) | payer MEDICARE, BC, SELFPAY ==
[2020-04-29 11:24] LABS: International Normalized Ratio 2.1; Prothrombin Time (Protime)PT. 23.3 SECONDS (11.7-14.9)
== END 2020-05-13 18:00 | disposition home or self-care (01) ==
LOC: LAB 10:32
PROVIDERS: Family Provider Family Medicine; PCP Family Medicine; Referring Provider Internal Medicine Cardiovascular Disease; Visit Provider Internal Medicine Cardiovascular Disease
DX: I48.11 Longstanding persistent atrial fibrillation (principal); Z79.01 Long term (current) use of anticoagulants
CPT/HCPCS: 36415; 85610

== ENCOUNTER 2020-06-14 12:36 | Outpatient (RCR) | payer MEDICARE, BC, SELFPAY ==
[2020-05-06 10:33] VITALS: BMI 24.1
[2020-06-14 13:35] LABS: International Normalized Ratio 2.2; Prothrombin Time (Protime)PT. 23.7 SECONDS (11.7-14.9)
== END 2020-06-14 18:00 | disposition home or self-care (01) ==
LOC: LAB 12:36
PROVIDERS: Family Provider Family Medicine; PCP Family Medicine; Referring Provider Internal Medicine Cardiovascular Disease; Visit Provider Internal Medicine Cardiovascular Disease
DX: I48.19 Other persistent atrial fibrillation (principal); Z79.01 Long term (current) use of anticoagulants
CPT/HCPCS: 36415; 85610

== ENCOUNTER 2020-07-15 08:52 | Outpatient (RCR) | payer MEDICARE, BC, SELFPAY ==
[2020-05-06 10:33] VITALS: BMI 24.1
[2020-07-15 10:09] LABS: Prothrombin Time (Protime)PT. 22.3 SECONDS (11.7-14.9)
== END 2020-07-15 18:00 | disposition home or self-care (01) ==
LOC: LAB 08:52
PROVIDERS: Family Provider Family Medicine; PCP Family Medicine; Referring Provider Internal Medicine Cardiovascular Disease; Visit Provider Internal Medicine Cardiovascular Disease
DX: I48.19 Other persistent atrial fibrillation (principal); Z79.01 Long term (current) use of anticoagulants
CPT/HCPCS: 36415; 85610

== ENCOUNTER 2020-09-09 13:33 | Outpatient (RCR) | payer MEDICARE, BC, SELFPAY ==
[2020-05-06 10:33] VITALS: BMI 24.1
[2020-08-23 17:49] LABS: International Normalized Ratio 1.9; Prothrombin Time (Protime)PT. 21.5 SECONDS (11.7-14.9)
[2020-09-09 14:14] LABS: International Normalized Ratio 2.3
== END 2020-09-09 18:00 | disposition home or self-care (01) ==
LOC: LAB 13:33
PROVIDERS: Family Provider Family Medicine; PCP Family Medicine; Referring Provider Internal Medicine Cardiovascular Disease; Visit Provider Internal Medicine Cardiovascular Disease
DX: I48.20 Chronic atrial fibrillation, unspecified (principal)
CPT/HCPCS: 36415; 85610

== ENCOUNTER 2020-10-04 11:04 | Outpatient (RCR) | payer MEDICARE, BC, SELFPAY ==
[2020-05-06 10:33] VITALS: BMI 24.1
== END 2020-10-04 23:59 ==
LOC: IMMUN 11:04
PROVIDERS: PCP Family Medicine; Visit Provider Family Medicine
DX: Z23 Encounter for immunization (principal)
CPT/HCPCS: 0011A; 0012A; 91301

== ENCOUNTER 2020-10-29 10:53 | Outpatient (RCR) | payer MEDICARE, BC, SELFPAY ==
[2020-05-06 10:33] VITALS: BMI 24.1
[2020-10-29 11:46] LABS: Absolute Lymphocyte Count 1.59 X10^3/uL (0.83-4.51); Absolute Neutrophil Count 4.4 X10^3/uL (2.0-7.7); Basophil# 0.04 X10^3/uL; Basophil% 0.6 % (0-1); Eosinophil# 0.11 X10^3/uL; Eosinophils% 1.6 % (0-5); Hematocrit 46.2 % (40-54); Hemoglobin 14.9 g/dL (13.0-16.5); Lymphocyte # 1.59 X10^3/ul (4.0); Lymphocyte % 23.7 % (19-41); Mean Corp Hgb Conc 32.3 g/dL (32-36); Mean Corpuscular Hgb 30.2 pg (27.0-32.0); Mean Corpuscular Volume 93.5 fL (80-94); Mean Platelet Vol. 11.1 fl (6.2-12.0); Monocyte% 7.4 % (0-10); NRBC Flagged by Analyzer 0 % (0-5); Neutrophil # 4.44 X10^3/uL (2.7-7.7); Neutrophil % 66.1 % (47-70); Platelet Count 169 K/mm3 (150-450); RBC Distribution Width CV 13.2 % (11.6-14.6); RBC Distribution Width SD 45.1 fl (35.1-43.9); Red Blood Count 4.94 M/mm3 (4.6-6.2); White Blood Count 6.7 K/mm3 (4.4-11.0)
[2020-10-29 11:56] LABS: International Normalized Ratio 2.1; Prothrombin Time (Protime)PT. 23.5 SECONDS (11.7-14.9)
[2020-10-29 12:08] LABS: ALB/GLOB Ratio 1.2 RATIO (0.9-2.4); AST(SGOT) 21 U/L (15-37); Alanine Aminotransfer ALT/SGPT 27 U/L (16-61); Albumin, Serum 4.1 g/dL (3.2-5.0); Alkaline Phosphatase 66 U/L (45-117); Anion Gap 5 (5-15); BUN 15 mg/dL (7-18); Calcium,Total 9.2 mg/dL (8.5-10.1); Chloride 105 mmol/L (98-107); Cholesterol 232 mg/dL (200); Creatinine, Serum 0.94 mg/dL (0.70-1.30); EST Glomerular Filtration Rate 81 mL/min (>60); Est Glom Filt Rate - Afr Amer 98 mL/min (>60); Globulin 3.4 g/dL (2.2-4.2); Glucose 105 mg/dL (74-106); High Density Lipoprotein 85 mg/dL; Potassium 3.6 mmol/L (3.5-5.1); Protein, Total 7.5 g/dL (6.4-8.2); Sodium Level 139 mmol/L (136-145); Triglycerides 61 mg/dL; Very Low Density Lipoprotein 12 mg/dL (5-40); Vitamin B12 491 pg/mL (211-911)
== END 2020-10-29 18:00 ==
LOC: LAB 10:53
PROVIDERS: Family Provider Family Medicine; PCP Family Medicine; Referring Provider Internal Medicine Cardiovascular Disease; Visit Provider Internal Medicine Cardiovascular Disease
DX: E11.9 Type 2 diabetes mellitus without complications (principal); E53.8 Deficiency of other specified B group vitamins; I48.20 Chronic atrial fibrillation, unspecified; Z79.01 Long term (current) use of anticoagulants; Z86.73 Personal history of transient ischemic attack (TIA), and cerebral infarction without residual deficits
CPT/HCPCS: 36415; 80053; 80061; 82607; 85025; 85610

== ENCOUNTER 2020-12-03 16:45 | Outpatient (RCR) | payer MEDICARE, BC, SELFPAY ==
[2020-05-06 10:33] VITALS: BMI 24.1
[2020-12-03 17:46] LABS: International Normalized Ratio 2.2; Prothrombin Time (Protime)PT. 24.1 SECONDS (11.7-14.9)
== END 2020-12-03 18:00 | disposition home or self-care (01) ==
LOC: LAB 16:45
PROVIDERS: Family Provider Family Medicine; PCP Family Medicine; Referring Provider Internal Medicine Cardiovascular Disease; Visit Provider Internal Medicine Cardiovascular Disease
DX: I48.20 Chronic atrial fibrillation, unspecified (principal); Z79.01 Long term (current) use of anticoagulants
CPT/HCPCS: 36415; 85610

== ENCOUNTER 2021-01-28 09:53 | Outpatient (RCR) | payer MEDICARE, BC, SELFPAY ==
[2020-05-06 10:33] VITALS: BMI 24.1
[2021-01-28 10:30] LABS: International Normalized Ratio 1.8; Prothrombin Time (Protime)PT. 19.9 SECONDS (11.7-14.9)
== END 2021-01-28 18:00 | disposition home or self-care (01) ==
LOC: LAB 09:53
PROVIDERS: Physician Assistant Medical; Family Provider Family Medicine; PCP Family Medicine; Referring Provider Internal Medicine Cardiovascular Disease; Visit Provider Internal Medicine Cardiovascular Disease
DX: I48.11 Longstanding persistent atrial fibrillation (principal); Z79.01 Long term (current) use of anticoagulants
CPT/HCPCS: 36415; 85610

== ENCOUNTER 2021-02-27 12:05 | Outpatient (RCR) | payer MEDICARE, BC, SELFPAY ==
[2020-05-06 10:33] VITALS: BMI 24.1
[2021-02-19 11:40] VITALS: BMI 24.2
[2021-02-27 12:54] LABS: International Normalized Ratio 2.1; Prothrombin Time (Protime)PT. 22.8 SECONDS (11.7-14.9)
== END 2021-02-27 18:00 | disposition home or self-care (01) ==
LOC: LAB 12:05
PROVIDERS: Family Provider Family Medicine; PCP Family Medicine; Referring Provider Internal Medicine Cardiovascular Disease; Visit Provider Internal Medicine Cardiovascular Disease
DX: I48.11 Longstanding persistent atrial fibrillation (principal); Z79.01 Long term (current) use of anticoagulants
CPT/HCPCS: 36415; 85610

== ENCOUNTER 2021-04-17 10:21 | Outpatient (RCR) | payer MEDICARE, BC, SELFPAY ==
[2021-02-19 11:40] VITALS: BMI 24.2
[2021-04-17 11:15] LABS: Absolute Lymphocyte Count 1.41 X10^3/uL (0.83-4.51); Absolute Neutrophil Count 3.5 X10^3/uL (2.0-7.7); Basophil# 0.04 X10^3/uL; Basophil% 0.7 % (0-1); Eosinophil# 0.07 X10^3/uL; Eosinophils% 1.3 % (0-5); Hematocrit 43.8 % (40-54); Hemoglobin 14.3 g/dL (13.0-16.5); Lymphocyte # 1.41 X10^3/ul (0.83-4.51); Lymphocyte % 25.7 % (19-41); Mean Corp Hgb Conc 32.6 g/dL (32-36); Mean Corpuscular Hgb 30.5 pg (27.0-32.0); Mean Corpuscular Volume 93.4 fL (80-94); Mean Platelet Vol. 10.8 fl (6.2-12.0); Monocyte# 0.44 X10^3/uL; NRBC Flagged by Analyzer 0 % (0-5); Neutrophil # 3.51 X10^3/uL (2.7-7.7); Neutrophil % 63.9 % (47-70); Platelet Count 165 K/mm3 (150-450); RBC Distribution Width CV 13.1 % (11.6-14.6); RBC Distribution Width SD 44.5 fl (35.1-43.9); Red Blood Count 4.69 M/mm3 (4.6-6.2); White Blood Count 5.5 K/mm3 (4.4-11.0)
[2021-04-17 11:25] LABS: International Normalized Ratio 2.3; Prothrombin Time (Protime)PT. 24.8 SECONDS (11.7-14.9)
[2021-04-17 11:48] LABS: ALB/GLOB Ratio 1.2 RATIO (0.9-2.4); AST(SGOT) 18 U/L (15-37); Alanine Aminotransfer ALT/SGPT 29 U/L (16-61); Albumin, Serum 3.7 g/dL (3.2-5.0); Alkaline Phosphatase 54 U/L (45-117); Anion Gap 6 (5-15); BUN 15 mg/dL (7-18); BUN/Creat Ratio 18.7 RATIO (10-20); Chloride 106 mmol/L (98-107); Cholesterol 212 mg/dL (200); EST Glomerular Filtration Rate 97 mL/min (>60); Est Glom Filt Rate - Afr Amer 117 mL/min (>60); Globulin 3.1 g/dL (2.2-4.2); Glucose 98 mg/dL (74-106); High Density Lipoprotein 80 mg/dL; Potassium 3.9 mmol/L (3.5-5.1); Protein, Total 6.8 g/dL (6.4-8.2); Sodium Level 140 mmol/L (136-145); Thyroid Stim Hormone (TSH) 1.88 uIU/mL (0.358-3.74); Triglycerides 59 mg/dL; Very Low Density Lipoprotein 12 mg/dL (5-40)
== END 2021-04-17 18:00 | disposition home or self-care (01) ==
LOC: LAB 10:21
PROVIDERS: Family Provider Family Medicine; PCP Family Medicine; Referring Provider Internal Medicine Cardiovascular Disease; Visit Provider Internal Medicine Cardiovascular Disease
DX: I48.11 Longstanding persistent atrial fibrillation (principal); E11.9 Type 2 diabetes mellitus without complications; N40.0 Benign prostatic hyperplasia without lower urinary tract symptoms; Z79.01 Long term (current) use of anticoagulants
CPT/HCPCS: 36415; 80053; 80061; 84443; 85025; 85610

== ENCOUNTER 2021-05-15 11:48 | Outpatient (RCR) | payer MEDICARE, BC, SELFPAY ==
[2021-05-13 19:39] VITALS: BMI 24.2
[2021-05-15 12:42] LABS: International Normalized Ratio 2.2; Prothrombin Time (Protime)PT. 23.8 SECONDS (11.7-14.9)
== END 2021-05-15 18:00 | disposition home or self-care (01) ==
LOC: LAB 11:48
PROVIDERS: Family Provider Family Medicine; PCP Family Medicine; Referring Provider Internal Medicine Cardiovascular Disease; Visit Provider Internal Medicine Cardiovascular Disease
DX: I48.11 Longstanding persistent atrial fibrillation (principal); Z79.01 Long term (current) use of anticoagulants
CPT/HCPCS: 36415; 85610

== ENCOUNTER 2021-07-09 12:49 | Outpatient (RCR) | payer MEDICARE, BC, SELFPAY ==
[2021-06-12 18:25] VITALS: BMI 24.2
[2021-06-19 12:08] LABS: International Normalized Ratio 1.8; Prothrombin Time (Protime)PT. 20.4 SECONDS (11.7-14.9)
[2021-07-09 13:56] LABS: International Normalized Ratio 2.2
== END 2021-07-13 02:48 | disposition home or self-care (01) ==
LOC: LAB 12:49
PROVIDERS: Family Provider Family Medicine; PCP Family Medicine; Referring Provider Internal Medicine Cardiovascular Disease; Visit Provider Internal Medicine Cardiovascular Disease
DX: I48.11 Longstanding persistent atrial fibrillation (principal); Z79.01 Long term (current) use of anticoagulants
CPT/HCPCS: 36415; 85610

== ENCOUNTER 2021-08-18 11:16 | Outpatient (RCR) | payer MEDICARE, BC, SELFPAY ==
[2021-07-13 02:48] VITALS: BMI 24.2
[2021-08-18 12:34] LABS: International Normalized Ratio 2.5; Prothrombin Time (Protime)PT. 26.1 SECONDS (11.7-14.9)
== END 2021-09-13 18:00 | disposition home or self-care (01) ==
LOC: LAB 11:16
PROVIDERS: Family Provider Family Medicine; PCP Family Medicine; Referring Provider Internal Medicine Cardiovascular Disease; Visit Provider Internal Medicine Cardiovascular Disease
DX: I48.11 Longstanding persistent atrial fibrillation (principal); Z79.01 Long term (current) use of anticoagulants
CPT/HCPCS: 36415; 85610

== ENCOUNTER 2021-09-26 11:34 | Outpatient (RCR) | payer MEDICARE, BC, SELFPAY ==
[2021-09-14 03:34] VITALS: BMI 24.2
[2021-09-26 12:54] LABS: International Normalized Ratio 2.4; Prothrombin Time (Protime)PT. 25.3 SECONDS (11.7-14.9)
== END 2021-10-13 18:00 | disposition home or self-care (01) ==
LOC: LAB 11:34
PROVIDERS: Family Provider Family Medicine; PCP Family Medicine; Referring Provider Internal Medicine Cardiovascular Disease; Visit Provider Internal Medicine Cardiovascular Disease
DX: I48.11 Longstanding persistent atrial fibrillation (principal); Z79.01 Long term (current) use of anticoagulants
CPT/HCPCS: 36415; 85610

== ENCOUNTER 2021-11-10 11:17 | Outpatient (RCR) | payer MEDICARE, BC, SELFPAY ==
[2021-10-13 22:07] VITALS: BMI 24.2
[2021-11-10 12:49] LABS: International Normalized Ratio 2.4; Prothrombin Time (Protime)PT. 25.1 SECONDS (11.7-14.9)
== END 2021-11-10 18:00 | disposition home or self-care (01) ==
LOC: LAB 11:17
PROVIDERS: Family Provider Family Medicine; PCP Family Medicine; Referring Provider Internal Medicine Cardiovascular Disease; Visit Provider Internal Medicine Cardiovascular Disease
DX: I48.11 Longstanding persistent atrial fibrillation (principal); Z79.1 Long term (current) use of non-steroidal anti-inflammatories (NSAID)
CPT/HCPCS: 36415; 85610

== ENCOUNTER 2022-01-05 13:49 | Emergency (ER) | payer MEDICARE, BC, SELFPAY ==
[2022-01-05 13:51] VITALS: BP 131/63; PULSE 81; RESP 18; TEMP 36.9; O2SAT 97; BMI 22.8
[2022-01-05 13:57] VITALS: BP 131/67; PULSE 99; RESP 17; O2SAT 98
--- NOTE | 2022-01-05 14:05 | EDS_ITS ---
HPI History of Present Illness Chief Complaint: Neuro S/Sx Informant: patient and spouse/S.O. Narrative Narrative: 86-year-old male brought to the emergency department with a chief complaint of head injury. Patient does not really say much and most of the history is tried to be gotten from his . She unfortunately is very vague in her answers. But what I can gather is that he fell in the parking lot today striking his head elbow and left knee. reports that he has been irritable over the past several days with occasional slurred speech. She notes chronic left-sided deficit. He is on Coumadin for atrial fibrillation. Reportedly no loss of consciousness nausea or vomiting. states that tetanus was updated in 2019. She states it had to be 2019 cassettes when he had his stroke. When informed that they typically do not update a tetanus just because he had a stroke she said the last one it was. [facility] Medical History Acute calculous cholecystitis Acute gallstone pancreatitis Atrial fibrillation with RVR Essential hypertension Hemorrhoids History of bladder cancer History of cancer History stage IV bladder cancer Hyperlipidemia Intermittent urinary incontinence Knee pain half-way (current) use of anticoagulants Longstanding persistent atrial fibrillation Mesenteric ischemia Osteoarthritis Severe sepsis SMA occlusion Type 2 diabetes mellitus Home Medications magnesium hydroxide 400 mg/5 mL oral suspension 30 ml PO QHS PRN 08/16/19 [History Last Taken Unknown] cholecalciferol (vitamin D3) 50 mcg (2,000 unit) capsule 50 mcg PO DAILY 05/06/20 [History Last Taken Unknown] diltiazem HCl 120 mg capsule,extended release 24 hr 120 mg PO DAILY #90 cap 08/26/21 [Rx Last Taken Unknown] warfarin 5 mg tablet 5 mg PO .COMPLEX #180 tab 09/17/21 [Rx Last Taken Unknown] Allergy/AdvReac Type Severity Reaction Status Date / Time metformin Allergy Severe kidneys Verified 01/05/22 13:51 shut down Family History Mother Cancer Brother Cancer Sister Cancer Sister Cancer Brother Myocardial infarction Surgical History History of bladder surgery History of laparoscopic cholecystectomy (~07/20/19) Status post small bowel resection (06/12/18) Social History Smoking Status: Former smoker how long ago did patient quit smokin years ago alcohol intake: never details: occasional caffeine: No ROS ROS ED Constitutional Constitutional ED: Denies chills, fever(s) or weight loss Eyes Eyes: Denies change in vision or diplopia ENT ENT ED: Denies ear pain, rhinorrhea or sore throat Cardiovascular Cardiovascular: Denies chest pain, orthopnea, palpitations or racing heartbeat Respiratory/Chest Respiratory/Chest: Denies cough, dyspnea or orthopnea Gastrointestinal Gastrointestinal: Denies abdominal pain, diarrhea, nausea or vomiting Genitourinary Genitourinary ED: Denies dysuria, hematuria or urinary frequency Musculoskeletal Musculoskeletal: Denies arthralgias or myalgias Integumentary Reports Abrasions; Denies abscess or rash Neurologic Neurologic: Denies headache(s) or weakness Psychiatric Psychiatric: Reports other Details: Irritable ; Denies anxiety, depression, suicidal ideation or suicidal thoughts Endocrine Endocrinology: Denies polydipsia, polyphagia or polyuria Allergic/Immunologic Allergic/Immunologic ED: Denies mouth swelling, tongue swelling or urticaria EXAM Physical Exam Const Vital Signs: 01/05/22 13:51 01/05/22 13:57 01/05/22 14:33 Temperature 98.4 F Temperature Source Temporal Pulse Rate 81 99 73 Respiratory Rate 18 17 16 Blood Pressure 131/63 H 131/67 H 118/71 Blood Pressure Mean 85 88 86 Pulse Ox 97 98 98 Oxygen Delivery Method Room Air Room Air Room Air Positive well nourished and well developed; Negative for obese General Appearance ED: well developed Nutritional Appearance: Negative for obese HEENT Reports normocephalic, head/scalp atraumatic and moist mucous membranes HEENT Narrative: There is a small superficial abrasion to the left high parietal region. Negative for trauma Eyes PERRL and EOMs intact bilaterally Neck no lymphadenopathy, supple and no JVD Resp normal respiratory effort and clear to auscultation bilaterally Cardio no murmurs Rhythm: abnormal rhythm irregularly irregular GI normal to inspection, nondistended, normoactive bowel sounds and non-tender Palpation: soft Back/Spine no CVA tenderness and normal ROM Extremity Extremity Narrative: Abrasion to the posterior left elbow and lateral anterior left knee. General Extremety ED: Negative for edema General Extremity: Negative for edema Neuro oriented x3 and CN's II-XII intact bilaterally Sensorium / Orientation: alert Motor Exam: strength 5/5 throughout Psych mental status grossly normal Mood & Affect: Negative for depressed or tearful Skin no rashes or lesions noted MDM MDM MDM Narrative Medical decision making narrative: Wounds will be cleansed and dressed. These do not appear to require surgery. CT of the brain was obtained. This was negative for hemorrhage. It does show mass which the patient had in 2019. He had an MRI at [facility]. It was felt to be most likely meningioma. states they want nothing done for it as surgery would kill him. It is noted to be larger and with more mass-effect than in 2019. I told him that it is affecting the left frontal lobe and can cause a variety of neurologic symptoms. She is adamant that nothing be done for it and does not wish we discussed the case with neurosurgery. His INR is therapeutic at 2.3. Basic blood work is negative. Urinalysis demonstrates no infection. At this point patient will be discharged home with supportive care. Lab Data Labs: Laboratory Results - last 24 hr 01/05/22 01/05/22 01/05/22 14:20 14:20 14:20 WBC 5.5 RBC 4.63 Hgb 14.4 Hct 42.1 MCV 90.9 MCH 31.1 MCHC 34.2 RDW Std Deviation 43.1 RDW Coeff of Matteo 13.0 Plt Count 175 MPV 10.7 Immature Gran % (Auto) 0.500 Neut % (Auto) 63.6 Lymph % (Auto) 25.9 [place] % (Auto) 8.4 Eos % (Auto) 0.9 Baso % (Auto) 0.7 Absolute Neuts (auto) 3.5 Absolute Lymphs (auto) 1.42 Nucleated RBC % 0 PT 24.6 H INR 2.3 Sodium 139 Potassium 3.7 Chloride 105 Carbon Dioxide 29.0 Anion Gap 5 BUN 17 Creatinine 0.88 Estim Creat Clear Calc 57.99 Est GFR (MDRD) Af Amer 106 Est GFR (MDRD) Non-Af 87 BUN/Creatinine Ratio 19.3 Glucose 157 H Calcium 9.3 Total Bilirubin 0.80 AST 19 ALT 26 Alkaline Phosphatase 64 Total Protein 7.1 Albumin 3.8 Globulin 3.3 Albumin/Globulin Ratio 1.2 Urine Color Urine Clarity Urine pH Ur Specific [place] Urine Protein Urine Glucose (UA) Urine Ketones Urine Occult Blood Urine Nitrite Urine Bilirubin Urine Urobilinogen Ur Leukocyte Esterase 01/05/22 14:45 WBC RBC Hgb Hct MCV MCH MCHC RDW Std Deviation RDW Coeff of Matteo Plt Count MPV Immature Gran % (Auto) Neut % (Auto) Lymph % (Auto) [place] % (Auto) Eos % (Auto) Baso % (Auto) Absolute Neuts (auto) Absolute Lymphs (auto) Nucleated RBC % PT INR Sodium Potassium Chloride Carbon Dioxide Anion Gap BUN Creatinine Estim Creat Clear Calc Est GFR (MDRD) Af Amer Est GFR (MDRD) Non-Af BUN/Creatinine Ratio Glucose Calcium Total Bilirubin AST ALT Alkaline Phosphatase Total Protein Albumin Globulin Albumin/Globulin Ratio Urine Color Yellow Urine Clarity Clear Urine pH 6.5 Ur Specific [place] 1.015 Urine Protein Negative Urine Glucose (UA) Normal Urine Ketones Negative Urine Occult Blood 10 H Urine Nitrite Negative Urine Bilirubin Negative Urine Urobilinogen Normal Ur Leukocyte Esterase Negative Radiography Diagnostic Testing: Clinical Impression(s) from Imaging Studies Brain CT 01/05/22 14:20 IMPRESSION: Left frontal lobe mass has slightly increased in size since 07/23/2019 and now demonstrates greater degree of surrounding edema and mass effect on the adjacent structures with approximately 0.5 cm of [id number] midline shift. Electronically Signed: Rio Cavazos, at 14:51 EDT , Discharge Plan Triage Chief Complaint: Neuro S/Sx ED Provider: Manpreet Gonzalez Dx/Rx/DC Orders Clinical Impression: half-way (current) use of anticoagulants, Head injury, Abrasion of elbow, left, Abrasion of knee, left Instructions: ED Abrasion, ED Headache Unspecified Prescriptions: No Action magnesium hydroxide [Milk of Magnesia] 400 mg/5 mL suspension 30 ml PO QHS PRN (Reason: constipation) RF: 0 cholecalciferol (vitamin D3) 50 mcg (2,000 unit) capsule 50 mcg PO DAILY RF: 0 diltiazem HCl 120 mg capsule,extended release 24hr 120 mg PO DAILY Qty: 90 RF: 3 warfarin 5 mg tablet 5 mg PO .COMPLEX Qty: 180 RF: 3 Primary Care Provider: Nataliia Lim Referrals: Nataliia Lim MD [Primary Care Provider] - 3-5 Days
--- NOTE | 2022-01-05 14:20 | CT_ITS ---
INDICATION: injury EXAMINATION: CT BRAIN - CT Head or Brain W/O Contrast Injection TECHNIQUE: Multiple axial images were obtained of the head without intravenous contrast. A radiation dose optimization technique was used for this scan. IV Contrast dosage and agent: None. COMPARISON: CT brain/head from 07/23/2019 FINDINGS: There is a 4.2 x 3.4 x 3.0 cm mass in the left frontal lobe, previously measuring 3.2 x 2.8 x 2.5 cm on 07/23/2019. There is surrounding edema in the left frontal and parietal lobes. There is mass effect and effacement of the adjacent parenchyma and slight compression of the frontal horn of the left lateral ventricle. There is approximately 0.5 cm of [id number] midline shift. No acute intracranial hemorrhage. Orbits and globes are unremarkable. No acute calvarial fracture. No destructive osseous lesions. The sinuses are patent. Mastoid air cells are clear. CT/Brain/Head without Contrast IMPRESSION: Left frontal lobe mass has slightly increased in size since 07/23/2019 and now demonstrates greater degree of surrounding edema and mass effect on the adjacent structures with approximately 0.5 cm of [id number] midline shift. Electronically Signed: Rio Cavazos, at 14:51 EDT ,
[2022-01-05 14:25] LABS: Absolute Lymphocyte Count 1.42 X10^3/uL (0.83-4.51); Absolute Neutrophil Count 3.5 X10^3/uL (2.0-7.7); Basophil# 0.04 X10^3/uL; Basophil% 0.7 % (0-1); Eosinophil# 0.05 X10^3/uL; Eosinophils% 0.9 % (0-5); Hematocrit 42.1 % (40-54); Hemoglobin 14.4 g/dL (13.0-16.5); Lymphocyte # 1.42 X10^3/ul (0.83-4.51); Lymphocyte % 25.9 % (19-41); Mean Corp Hgb Conc 34.2 g/dL (32-36); Mean Corpuscular Hgb 31.1 pg (27.0-32.0); Mean Corpuscular Volume 90.9 fL (80-94); Mean Platelet Vol. 10.7 fl (6.2-12.0); Monocyte# 0.46 X10^3/uL; Monocyte% 8.4 % (0-10); NRBC Flagged by Analyzer 0 % (0-5); Neutrophil # 3.48 X10^3/uL (2.7-7.7); Neutrophil % 63.6 % (47-70); Platelet Count 175 K/mm3 (150-450); RBC Distribution Width SD 43.1 fl (35.1-43.9); Red Blood Count 4.63 M/mm3 (4.6-6.2); White Blood Count 5.5 K/mm3 (4.4-11.0)
[2022-01-05 14:33] VITALS: BP 118/71; PULSE 73; RESP 16; O2SAT 98
[2022-01-05 14:43] LABS: ALB/GLOB Ratio 1.2 RATIO (0.9-2.4); AST(SGOT) 19 U/L (15-37); Alanine Aminotransfer ALT/SGPT 26 U/L (16-61); Albumin, Serum 3.8 g/dL (3.2-5.0); Alkaline Phosphatase 64 U/L (45-117); Anion Gap 5 (5-15); BUN 17 mg/dL (7-18); BUN/Creat Ratio 19.3 RATIO (10-20); Calcium,Total 9.3 mg/dL (8.5-10.1); Chloride 105 mmol/L (98-107); Creatinine, Serum 0.88 mg/dL (0.70-1.30); EST Glomerular Filtration Rate 87 mL/min (>60); Est Glom Filt Rate - Afr Amer 106 mL/min (>60); Estimated Creatinine Clearance 57.99 ml/min; Globulin 3.3 g/dL (2.2-4.2); Glucose 157 mg/dL (74-106); International Normalized Ratio 2.3; Potassium 3.7 mmol/L (3.5-5.1); Protein, Total 7.1 g/dL (6.4-8.2); Prothrombin Time (Protime)PT. 24.6 SECONDS (11.7-14.9); Sodium Level 139 mmol/L (136-145)
[2022-01-05 14:52] LABS: Bacteria 0 SEEN /hpf (None Seen); Mucous, Urine 0 SEEN /hpf (<or=2+); White Blood Cells 0 SEEN /hpf (0-5)
[2022-01-05 15:08] LABS: Color, Urine Yellow (Yellow); Glucose, Dipstick Normal (Normal); Ketone-Dipstick Negative (Negative); Leukocyte Esterase-Dipstick Negative /ul (Negative); Nitrite-Dipstick Negative (Negative); Occult Blood-Urine 10 /ul (Negative); Protein-Dipstick Negative (Negative); Specific Gravity, Urine 1.015 (1.002-1.030); Urine Bilirubin Dipstick Negative (Negative); Urine Clarity Clear (Clear); Urine Urobilinogen Normal (Normal); Urine pH 6.5 (5.0 - 8.0)
[2022-01-05 15:10] VITALS: BP 122/64; PULSE 73; RESP 20; O2SAT 97
[2022-01-05 15:19] VITALS: BMI 22.8
[2022-01-05 15:19] LABS: Red Blood Cells-Urine 0-5 SEEN /hpf (0-5); Squamous Epithelial Cells - UA 0-5 SEEN /hpf (0-5)
[2022-01-05 16:36] LABS: Bedside Glucose 181 mg/dL (74-106)
== END 2022-01-05 15:35 | disposition home or self-care (01) ==
PROVIDERS: Emergency Provider Emergency Medicine; PCP Family Medicine; Visit Provider Emergency Medicine
DX: S09.90XA Unspecified injury of head, initial encounter (principal); I48.91 Unspecified atrial fibrillation; E11.9 Type 2 diabetes mellitus without complications; S00.91XA Abrasion of unspecified part of head, initial encounter; E78.5 Hyperlipidemia, unspecified; S50.312A Abrasion of left elbow, initial encounter; S80.212A Abrasion, left knee, initial encounter; Z87.891 Personal history of nicotine dependence; I10 Essential (primary) hypertension; Z79.01 Long term (current) use of anticoagulants; W18.09XA Striking against other object with subsequent fall, initial encounter; Y92.481 Parking lot as the place of occurrence of the external cause
CPT/HCPCS: 70450; 80053; 81001; 82962; 85025; 85610; 99283; A4216

== ENCOUNTER 2022-02-10 14:30 | Outpatient (RCR) | payer MEDICARE, BC, SELFPAY ==
[2022-01-27 14:21] VITALS: BP 118/63; PULSE 77; RESP 16; TEMP 36.2
--- NOTE | 2022-01-27 16:34 | PCM.WC.HP ---
History of Present Illness Date of Service: 01/27/22 Chief Complaint: Right elbow wound History of Wound: Patient fell last week and hit his right elbow and had a skin tear. He went to [facility] in [place] and they told him top place antibiotic ointment on the wound daily and referred him to the wound center. Patient's states that he has had 3 falls in the past month, which not normal. She states that she has told his PCP about this. This most recent fall was 01/17/22 where he fell at home and bumped his elbow. He fell in a parking lot and hit his head on 01/05/22. Patient has a history of diabetes, Afib and stroke. Progress of Wound: Right elbow skin tear to the muscle with a skin flap on the lateral portion of the distal arm that is thick and has some necrosis on the edge. [facility] Medical History Acute calculous cholecystitis Acute gallstone pancreatitis Atrial fibrillation with RVR Essential hypertension Hemorrhoids History of bladder cancer History of cancer History stage IV bladder cancer Hyperlipidemia Intermittent urinary incontinence Knee pain detention (current) use of anticoagulants Longstanding persistent atrial fibrillation Mesenteric ischemia Osteoarthritis Severe sepsis SMA occlusion Stroke/cerebrovascular accident Type 2 diabetes mellitus Home Medications cholecalciferol (vitamin D3) 50 mcg (2,000 unit) capsule 50 mcg PO DAILY 05/06/20 [History Last Taken Unknown] diltiazem HCl 120 mg capsule,extended release 24 hr 120 mg PO DAILY #90 cap 08/26/21 [Rx Last Taken Unknown] bisacodyl [Dulcolax (bisacodyl)] 5 mg PO QHS 01/27/22 [History Last Taken Unknown] warfarin 5 mg PO 01/27/22 [History Last Taken Unknown] Allergy/AdvReac Type Severity Reaction Status Date / Time metformin Allergy Severe kidneys Verified 01/27/22 14:40 shut down Family History Mother Cancer Brother Cancer Sister Cancer Sister Cancer Brother Myocardial infarction Surgical History History of bladder surgery History of laparoscopic cholecystectomy (~11/07/19) Status post small bowel resection (06/12/18) Social History Smoking Status: Former smoker how long ago did patient quit smokin years ago alcohol intake: never details: occasional caffeine: No ROS Constitutional Constitutional: Reports frequent falls; Denies fever(s) or headache(s) ENT HEENT: Denies dizziness Cardiovascular Cardiovascular: Denies chest pain at rest Respiratory/Chest Respiratory/Chest: Denies change in mental status Gastrointestinal Gastrointestinal: Denies abdominal pain Musculoskeletal Musculoskeletal: Reports joint pain Integumentary Integumentary: Reports wounds Neurologic Neurologic: Reports abnormal gait, frequent falls, weakness and other Details: states he is forgetful ; Denies dizziness, headache(s) or vertigo Psychiatric Psychiatric: Reports other Details: Forgetful Vital Signs Vital Signs Vital Signs: 01/27/22 14:21 Temperature 97.2 F L Temperature Source Temporal Pulse Rate 77 Respiratory Rate 16 Blood Pressure 118/63 Blood Pressure Mean 81 Blood Pressure Source Monitor Blood Pressure Position Sitting Blood Pressure Location Right Arm Oxygen Delivery Method Room Air Physical Exam Const alert, oriented x3, no apparent distress and average body habitus General Appearance: cooperative HEENT normocephalic Eyes PERRL and EOMs intact bilaterally General Eye: normal appearance of both eyes Resp normal respiratory effort and normal air movement Effort and Inspection: able to speak in complete sentences Cardio regular rate and regular rhythm GI normal to inspection, nondistended, normoactive bowel sounds, soft to palpation and non-tender Extremity Extremity Narrative: Right arm with full range of motion Peripheral Pulses: Yes radial pulses present Skin Wound Narrative: Right lateral distal arm above elbow with skin tear and skin flap with muscle exposure. Skin flap with tunneling into the forearm. The edge of the skin flap is necrotic. Neuro oriented x3 and moves all extremities Sensorium / Orientation: awake, alert, oriented to person, oriented to place and oriented to time Motor Exam: strength 5/5 throughout and muscle tone normal throughout; Negative for movement abnormality noted Pupil Exam: Normal Pupillary Reactivity/Response: left Right Pupil Size (mm): 3 Left Pupil Size (mm): 3 Psych mental status grossly normal and cooperative Attitude: calm Speech: normal speech Mood & Affect: flat affect Attention / Concentration: attention grossly intact Debridement Note Debridement Note Wound debrided: Lateral elbow and distal arm Laterality: Right Wound Grade/Stage: Stage IV Type of Debridement: Excisional debridement Anesthesia Used: 4% Lidocaine Solution and 5% Lidocaine Gel Depth: Down to and including healthy tissue, in the subcutaneous layer and to muscle Percentage of wound debrided: 100 Instrument Used: 5mm curette and #15 blade Tissue Removed: Non viable tissue and slough, including necrotic tissue on skin flap Severity: Fat Layer Exposed Amount of bleeding with debridement: Mild Bleeding Controlled with: Pressure, Compression and gauze and Silver Nitrate Patient tolerated procedure: Patient tolerated procedure well Debridement Free Text: Large skin flap present from his fall on the lateral aspect of right elbow/distal arm where the skin flap has black/necrotic tissue on the edges. The base of the ulcer was debrided with a #5 curette and the necrotic portion of the skin flap was excised with pickups and #15 blade. Silver nitrate used to cauterize the bleeding along with pressure. Patient tolerated the debridement well. Post-Debridement Measurements and Additional Note: Post-Debridement Measurements/Treatment - Nurse 1 - General Ulcer Assessment Start: 01/27/22 14:21 Freq: Status: Active Protocol: TARYN Activity Type Activity Date Activity User E-Sign Co-Sign Detail Recorded Client Recorded Date Recorded By Document 01/27/22 14:21 [id number] 01/27/22 14:34 01/27/22 14:21 - Today's Visit Information Type of service Initial Visit Arrival Mode Wheelchair Transfer Assistance None Accompanied by Patient Identification Verified (Name & Yes ) Patient Requires Transmission-Based No Precautions Safety Precautions NA Vital Signs Temperature (97.8 F-99.1 F) 97.2 F L Temperature Source Temporal Pulse Rate (60-100) 77 Pulse Location Monitor Respiratory Rate (12-18) 16 Respiratory rate source Observation Oxygen Delivery Method Room Air Blood Pressure (90/60-120/80) 118/63 Blood Pressure Mean 81 Source Monitor Position Sitting Blood Pressure Location Right Arm History Since Last Visit- (Skip if this is Patient's initial visit) Left Footwear Regular Shoe Right Footwear Regular Shoe Pain Scale: 0-10 Numeric Is Patient Pain Free? Yes Communication Assessment Preferred language Estonian Able to Read Yes Able to Write Yes Communication Tools None Caregiver Communication Skills No Impairment Impairment Right Hearing Abillity Hard of Hearing Left Hearing Abillity Hard of Hearing Visual Assistive Devices Glasses Teaching Assessment Preferences Verbal,Written Barriers to Learning None Readiness To Learn Excellent Willingness to Engage in Self Management High Activies Readiness to Engage in Self Management High Activities Anxiety Level Calm Cooperation Cooperative Perception Coherent Interest in Health Problem Asks Questions Education Importance Acknowledges Need Smoking Status Former smoker Is Patient Diabetic Yes Functional Assessment Recent Decline in Ability to Perform Denies Any Declines Assistive Device With Patient Yes List Device(s) with Patient cane 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 Wood Machine Carver to contact place of anabaptism Yes WC - Nurse 1 - General Ulcer Measurement Start: 01/27/22 14:21 Freq: Status: Active Protocol: Activity Type Activity Date Activity User E-Sign Co-Sign Detail Recorded Client Recorded Date Recorded By Document 01/27/22 14:21 MW [id number] 01/27/22 14:34 MW 01/27/22 14:21 Wound Center Nurse 1 #1 right elbow -Combined with other wound No -Current Size (cm) - Length 4.2 -Current Size (cm) - Width 4.3 -Current Size (cm) - Depth 0.1 -Total Square Cm 18.06 -Date of Last Picture (Recall this 01/27/22 field) -Photo Taken Yes -Epithelialization None Present -Tunneling No -Undermining/Tunneling No -Circular Undermining No -Exudate Amt Medium -Exudate Type Serosanguineous -Wound Margin Flat & Intact -Granulation Amt Large (67-100%) -Granulation Quality [place] -Slough/Fibrin Yes -Necrosis Amt Small (1-33%) -Necrotic Tissue Type Adherent Slough -Structure Exposed N/A -Texture (Mary-wound Skin Appearance) Assessed, Localized Edema -Moisture (Mary-wound Skin Appearance) No Abnormality, Assessed -Color (Mary-wound Skin Appearance) No Abnormality, Assessed -Temperature (Mary-wound Skin No Abnormality Appearance) (Pt Warm) -Tenderness on Palpation (Mary-wound No Skin Appearance) -Ulcer Cleansing Soap and Water -Foul Odor after Cleansing No -Anesthetic Used 4% Lidocaine Solution Lower Limb Edema Present No WC - Nurse 2 - General Ulcer CM Notes Start: 01/27/22 14:21 Freq: Status: Active Protocol: Activity Type Activity Date Activity User E-Sign Co-Sign Detail Recorded Client Recorded Date Recorded By Document 01/27/22 14:56 [id number] 01/27/22 15:05 01/27/22 14:56 Wound Center Nurse 2 #1 right elbow -Time 14:56 -Correct Patient Yes -Correct Side, Site, Position Yes -Correct Procedure Yes -Procedure Performed Yes -Type of Procedure Debridement -Clinical Debridement Muscle / Fascia -Tissue Removed Muscle -Post Debridement (cm) - Length 5.5 -Post Debridement (cm) - Width 5.5 -Post Debridement (cm) - Depth 0.7 -Total Square (Post) (cm) 30.25 -Area of Debridement (cm) - Length 5.5 -Area of Debridement (cm) - Width 5.5 -Total Square (Area) (cm) 30.25 -Tunneling Yes -Tunneling Position (O'clock) 6 -Tunneling Distance (cm) 1.4 -Undermining/Tunneling No -Circular Undermining No -Wound/Ulcer Outcome Not Healed -Ulcer Cleansing Rinsed/ Irrigated with Saline -Foul Odor after Cleansing No -Bioengineered Tissue No -Bleeding Controlled with Pressure,Silver Nitrate -Treatment Response Procedure Tolerated Well -Offloading No -Debridement - Muscle / Fascia, 1st Yes 20sq cm -Debridement, Muscle/Fascia, ea addt'l 1 20sq cm or part thereof Pain Scale: 0-10 Numeric Is Patient Pain Free? Yes WC - Nurse 3 - General Ulcer D/C NN Start: 01/27/22 14:21 Freq: Status: Active Protocol: Activity Type Activity Date Activity User E-Sign Co-Sign Detail Recorded Client Recorded Date Recorded By Document 01/27/22 15:15 MW [id number] 01/27/22 15:16 MW 01/27/22 15:15 Wound Care Nurse 3 #1 right elbow -Ulcer Cleansing Rinsed/ Irrigated with Saline -Foul Odor after Cleansing No -Negative Pressure Wound Therapy N/A -Primary Dressing Applied Silvercel -Primary Dressing Covered/Secured with Dry Gauze & Roll Gauze, Secured with Tape -Other Covering coban -Silvercel 1 Treatment Response Procedure Tolerated Well Pain Scale: 0-10 Numeric Is Patient Pain Free? Yes Teaching: Wound Center Dressing Your Wound -Person Taught Patient,Family -Teaching Method Discussion, Demonstration -Response to teaching Verbalize understanding WC - Visit Discharge Discharge Condition Unstable Ambulatory Status Ambulatory, Wheelchair Transportation Private Auto Accompanied by Medication Reconcilliation completed & No provided to patient/care provider Clinical Summary of Care Provided Yes Charges/Coding Visit Charges Office Visits / Consults: 61984 OV L3 Est (25 modifier) Procedures Integumentary 111xxx-113xx: [id number] Gladys musc/fascia 20 sq cm/< Add On Codes: 92769 Gladys musc/fascia add-on Assessment/Plan Assessment/Plan (1) Recurrent falls: CODE(S): R29.6 - Repeated falls (2) Open wound of right elbow: CODE(S): S51.001A - Unspecified open wound of right elbow, initial encounter QUALIFIERS: Encounter type: subsequent encounter Qualified Code(s): S51.001D - Unspecified open wound of right elbow, subsequent encounter (3) Type 2 diabetes mellitus: CODE(S): E11.9 - Type 2 diabetes mellitus without complications (4) detention (current) use of anticoagulants: CODE(S): Z79.01 - detention (current) use of anticoagulants PLAN: Patient was evaluated at the wound healing center today and a debridement was performed as previously documented. Wound care - Aquacel-Ag covered with gauze daily. May wrap co-band to secure the dressing. May wash the wound with soap and water before changing the dressing. Encouraged low carbohydrate diet and high protein intake to help with wound healing. Phoned Dr. Lim's office to discuss concern about the patient having frequent falls. Unable to speak to a person but a detailed message was left on Dr. Lim's nurses line about my concerns and the patient's 's concerns about his falls. feels comfortable doing the dressing changes. Follow up one week.
[2022-02-03 13:58] VITALS: BP 100/49; PULSE 82; RESP 16; TEMP 36.1
--- NOTE | 2022-02-03 15:59 | PCM.WC.PN ---
History of Present Illness Date of Service: 02/03/22 Chief Complaint: Right elbow wound History of Wound: Patient fell last week and hit his right elbow and had a skin tear. He went to [facility] in [place] and they told him top place antibiotic ointment on the wound daily and referred him to the wound center. Patient's states that he has had 3 falls in the past month, which not normal. She states that she has told his PCP about this. This most recent fall was 01/17/22 where he fell at home and bumped his elbow. He fell in a parking lot and hit his head on 01/05/22. Patient has a history of diabetes, Afib and stroke. Wound care - Aquacel-Ag daily covered with gauze and secured with co-band. Patient denies any fever, chills, nausea or vomiting. He states his appetite is good. Progress of Wound: Right elbow skin tear to the right lateral elbow and distal portion of arm is improving in appearance. He continues to have a thick skin flap present but the overall wound has improved and is a nice beefy pink color, plus it is smaller in size. Objective Data Objective Data Vital Signs: Vital Signs Temp Pulse Resp BP 97 F L 82 16 100/49 L 02/03/22 13:58 02/03/22 13:58 02/03/22 13:58 02/03/22 13:58 Oxygen Delivery Method Room Air Charges/Coding Procedures Integumentary 111xxx-113xx: 37192 Gladys musc/fascia 20 sq cm/< Add On Codes: 08884 Gladys musc/fascia add-on Physical Exam Const alert and no apparent distress General Appearance: cooperative HEENT normocephalic Resp normal respiratory effort Cardio regular rate Extremity normal capillary refill Extremity Narrative: right radial pulse present, no edema present. Skin Wound Narrative: Right elbow skin tear to the right lateral elbow and distal portion of arm is improving in appearance. He continues to have a thick skin flap present but the overall wound has improved and is a nice beefy pink color, plus it is smaller in size with granulation tissue present. Neuro Sensorium / Orientation: awake and alert Psych Appearance: well kempt Debridement Note Debridement Note Wound debrided: lateral elbow/distal right arm wound Laterality: Right Wound Grade/Stage: Stage IV Type of Debridement: Excisional debridement Anesthesia Used: 5% Lidocaine Gel Depth: Down to and including healthy tissue, in the subcutaneous layer and to muscle Percentage of wound debrided: 100 Instrument Used: 5mm curette Tissue Removed: Non viable tissue and slough Severity: Fat Layer Exposed Amount of bleeding with debridement: Mild Bleeding Controlled with: Pressure Patient tolerated procedure: Patient tolerated procedure well Post-Debridement Measurements and Additional Note: Post-Debridement Measurements/Treatment KAM - Nurse 1 - General Ulcer Assessment Start: 01/27/22 14:21 Freq: Status: Active Protocol: TARYN Activity Type Activity Date Activity User E-Sign Co-Sign Detail Recorded Client Recorded Date Recorded By Document 01/27/22 14:21 MW [id number] 01/27/22 14:34 MW Document 02/03/22 13:58 BM [id number] 02/03/22 14:11 BM 01/27/22 02/03/22 14:21 13:58 - Today's Visit Information Type of service Initial Visit Follow-up Visit (Physician/OPERATING SYSTEM DESIGNER ) Arrival Mode Wheelchair Wheelchair Transfer Assistance None None Accompanied by Patient Identification Verified (Name & Yes Yes ) Patient Requires Transmission-Based No No Precautions Safety Precautions NA Vital Signs Temperature (97.8 F-99.1 F) 97.2 F L 97 F L Temperature Source Temporal Temporal Pulse Rate (60-100) 77 82 Pulse Location Monitor Monitor Respiratory Rate (12-18) 16 16 Respiratory rate source Observation Observation Oxygen Delivery Method Room Air Room Air Blood Pressure (90/60-120/80) 118/63 100/49 L Blood Pressure Mean (mm Hg) 81 66 Source Monitor Monitor Position Sitting Sitting Blood Pressure Location Right Arm Left Arm Have you changed medications since your No last visit? Any new allergies or adverse reactions No Had a fall/change in ADL's that may No increase risk of falls Signs or symptoms of abuse and/or No neglect since last visit Have you been in the hospital since your No last visit? Has dressing in place as prescribed Yes Has compression in place as prescribed N/A Has offloadiing in place as prescribed N/A Experienced any changes in pain level or No management History Since Last Visit- (Skip if this is Patient's initial visit) Left Footwear Regular Shoe Regular Shoe Right Footwear Regular Shoe Regular Shoe Pain Scale: 0-10 Numeric Is Patient Pain Free? Yes Yes Communication Assessment Preferred language Montserratian Able to Read Yes Able to Write Yes Communication Tools None Caregiver Communication Skills No Impairment Impairment Right Hearing Abillity Hard of Hearing Left Hearing Abillity Hard of Hearing Visual Assistive Devices Glasses Teaching Assessment Preferences Verbal,Written Barriers to Learning None Readiness To Learn Excellent Willingness to Engage in Self Management High Activies Readiness to Engage in Self Management High Activities Anxiety Level Calm Cooperation Cooperative Perception Coherent Interest in Health Problem Asks Questions Education Importance Acknowledges Need Smoking Status Former smoker Is Patient Diabetic Yes Functional Assessment Recent Decline in Ability to Perform Denies Any Declines Assistive Device With Patient Yes List Device(s) with Patient cane Culture/Tenriism/Client Experience Administrator Cultural/Tenriism Needs that may affect Yes Treatment Plan Would you allow our hospital home supervisor to Yes meet you for the purpose of spiritual/ emotional support? Client Experience Administrator to contact place of mormon Yes WC - Nurse 1 - General Ulcer Measurement Start: 01/27/22 14:21 Freq: Status: Active Protocol: Activity Type Activity Date Activity User E-Sign Co-Sign Detail Recorded Client Recorded Date Recorded By Document 01/27/22 14:21 [id number] 01/27/22 14:34 Document 02/03/22 13:58 [facility] [id number] 02/03/22 14:11 [facility] 01/27/22 02/03/22 14:21 13:58 Wound Center Nurse 1 #1 right elbow -Combined with other wound No No -Current Size (cm) - Length 4.2 4.5 -Current Size (cm) - Width 4.3 4.6 -Current Size (cm) - Depth 0.1 0.1 -Total Square Cm 18.06 20.70 -Date of Last Picture (Recall this 01/27/22 02/03/22 field) -Photo Taken Yes Yes -Epithelialization None Present Small 1-33% -Tunneling No No -Undermining/Tunneling No Yes -Undermining/Tunneling Starts (O'clock 8 ) -Undermining/Tunneling Ends (O'clock) 8 -Maximum Distance (cm) 1.2 -Circular Undermining No No -Exudate Amt Medium Medium -Exudate Type Serosanguineous Serosanguineous -Wound Margin Flat & Intact Distinct, Outline Attached -Granulation Amt Large (67-100%) Large (67-100%) -Granulation Quality [place] Red -Slough/Fibrin Yes Yes -Necrosis Amt Small (1-33%) Small (1-33%) -Necrotic Tissue Type Adherent Slough Adherent Slough -Structure Exposed N/A -Texture (Mary-wound Skin Appearance) Assessed, Assessed, Localized Edema Scarring -Moisture (Mary-wound Skin Appearance) No Abnormality, Assessed,Dry/ Assessed Scaly -Color (Mary-wound Skin Appearance) No Abnormality, Assessed Assessed -Temperature (Mary-wound Skin No Abnormality No Abnormality Appearance) (Pt Warm) (Pt Warm) -Tenderness on Palpation (Mary-wound No No Skin Appearance) -Ulcer Cleansing Soap and Water Rinsed/ Irrigated with Saline -Foul Odor after Cleansing No No -Anesthetic Used 4% Lidocaine 5% Lidocaine Solution Gel Lower Limb Edema Present No WC - Nurse 2 - General Ulcer CM Notes Start: 01/27/22 14:21 Freq: Status: Active Protocol: Activity Type Activity Date Activity User E-Sign Co-Sign Detail Recorded Client Recorded Date Recorded By Document 01/27/22 14:56 [id number] 01/27/22 15:05 Document 02/03/22 14:46 [id number] 02/03/22 14:51 01/27/22 02/03/22 14:56 14:46 Wound Center Nurse 2 #1 right elbow -Time 14:56 14:46 -Correct Patient Yes Yes -Correct Side, Site, Position Yes Yes -Correct Procedure Yes Yes -Procedure Performed Yes Yes -Type of Procedure Debridement Debridement -Clinical Debridement Muscle / Fascia Subcutaneous -Tissue Removed Muscle Subcutaneous -Post Debridement (cm) - Length 5.5 5.0 -Post Debridement (cm) - Width 5.5 4.8 -Post Debridement (cm) - Depth 0.7 0.5 -Total Square (Post) (cm) 30.25 24.00 -Area of Debridement (cm) - Length 5.5 5.0 -Area of Debridement (cm) - Width 5.5 4.8 -Total Square (Area) (cm) 30.25 24.00 -Tunneling Yes Yes -Tunneling Position (O'clock) 6 6 -Tunneling Distance (cm) 1.4 1.4 -Undermining/Tunneling No No -Circular Undermining No No -Wound/Ulcer Outcome Not Healed Not Healed -Ulcer Cleansing Rinsed/ Rinsed/ Irrigated with Irrigated with Saline Saline -Foul Odor after Cleansing No No -Bioengineered Tissue No No -Bleeding Controlled with Pressure,Silver Pressure Nitrate -Treatment Response Procedure Procedure Tolerated Well Tolerated Well -Offloading No No -Debridement - Subq, 1st 20sq cm Yes -Debridement, SubQ, ea addt'l 20sq cm 1 or part thereof -Debridement - Muscle / Fascia, 1st Yes 20sq cm -Debridement, Muscle/Fascia, ea addt'l 1 20sq cm or part thereof Pain Scale: 0-10 Numeric Is Patient Pain Free? Yes Yes - Nurse 3 - General Ulcer D/C NN Start: 01/27/22 14:21 Freq: Status: Active Protocol: Activity Type Activity Date Activity User E-Sign Co-Sign Detail Recorded Client Recorded Date Recorded By Document 01/27/22 15:15 MW [id number] 01/27/22 15:16 MW Document 02/03/22 15:04 AK [id number] 02/03/22 15:05 AK 01/27/22 02/03/22 15:15 15:04 Wound Care Nurse 3 #1 right elbow -Ulcer Cleansing Rinsed/ Rinsed/ Irrigated with Irrigated with Saline Saline -Foul Odor after Cleansing No No -Negative Pressure Wound Therapy N/A N/A -Primary Dressing Applied Silvercel Silvercel -Other Dressing coban -Primary Dressing Covered/Secured with Dry Gauze & Dry Gauze Roll Gauze, Secured with Tape -Other Covering coban -Silvercel 1 1 Treatment Response Procedure Tolerated Well Pain Scale: 0-10 Numeric Is Patient Pain Free? Yes Yes Teaching: Wound Center Dressing Your Wound -Person Taught Patient,Family -Teaching Method Discussion, Demonstration -Response to teaching Verbalize understanding WC - Visit Discharge Discharge Condition Unstable Stable Ambulatory Status Ambulatory, Wheelchair Wheelchair Transportation Private Auto Private Auto Accompanied by Medication Reconcilliation completed & No Yes provided to patient/care provider Clinical Summary of Care Provided Yes Yes Assessment/Plan Assessment/Plan (1) Recurrent falls: CODE(S): R29.6 - Repeated falls (2) Open wound of right elbow: CODE(S): S51.001A - Unspecified open wound of right elbow, initial encounter QUALIFIERS: Encounter type: subsequent encounter Qualified Code(s): S51.001D - Unspecified open wound of right elbow, subsequent encounter (3) Type 2 diabetes mellitus: CODE(S): E11.9 - Type 2 diabetes mellitus without complications (4) MCC (current) use of anticoagulants: CODE(S): Z79.01 - MCC (current) use of anticoagulants PLAN: Patient was evaluated at the wound healing center today and a debridement was performed as previously documented. Wound care - Aquacel-Ag covered with gauze daily. May wrap co-band to secure the dressing. May wash the wound with soap and water before changing the dressing. His is doing a nice job on his dressing changes. Encouraged low carbohydrate diet and high protein intake to help with wound healing. I never heard from Dr. Lim's office and the patient has also never heard from them. Patient denies falling this past week. Follow up one week.
[2022-02-10 14:25] VITALS: BP 96/59; PULSE 94; RESP 18; TEMP 36.8
--- NOTE | 2022-02-10 15:18 | PN.PCM_ITS ---
History of Present Illness Date of Service: 02/10/22 Chief Complaint: Right elbow wound History of Wound: Patient fell last week and hit his right elbow and had a skin tear. He went to [facility] in [place] and they told him top place antibiotic ointment on the wound daily and referred him to the wound center. Patient's states that he has had 3 falls in the past month, which not normal. She states that she has told his PCP about this. This most recent fall was 01/17/22 where he fell at home and bumped his elbow. He fell in a parking lot and hit his head on 01/05/22. Patient has a history of diabetes, Afib and stroke. Wound care - Aquacel-Ag daily covered with gauze and secured with co-band. Patient denies any fever, chills, nausea or vomiting. He states his appetite is good. Progress of Wound: Right elbow skin tear to the right lateral elbow and distal portion of arm is improving in appearance. It is much smaller in size. The skin flap is also smaller. Objective Data Objective Data Vital Signs: Vital Signs Temp Pulse Resp BP 98.3 F 94 18 96/59 L 02/10/22 14:25 02/10/22 14:25 02/10/22 14:25 02/10/22 14:25 Oxygen Delivery Method Room Air Charges/Coding Procedures Integumentary 111xxx-113xx: 16477 Gladys subq tissue 20 sq cm/< Physical Exam Const alert and no apparent distress General Appearance: cooperative HEENT normocephalic Resp normal respiratory effort Cardio regular rate Extremity normal capillary refill Extremity Narrative: right radial pulse present, no edema present. Skin Wound Narrative: Right elbow skin tear to the right lateral elbow and distal portion of arm is improving in appearance. It is much smaller in size. The skin flap is also smaller. Neuro Sensorium / Orientation: awake and alert Psych Appearance: well kempt Debridement Note Debridement Note Wound debrided: lateral elbow Laterality: Right Type of Debridement: Excisional debridement Anesthesia Used: 5% Lidocaine Gel Depth: Down to and including healthy tissue and in the subcutaneous layer Percentage of wound debrided: 100 Instrument Used: 5mm curette Tissue Removed: Non viable tissue and slough Severity: Fat Layer Exposed Amount of bleeding with debridement: Mild Bleeding Controlled with: Pressure and Compression and gauze Patient tolerated procedure: Patient tolerated procedure well Post-Debridement Measurements and Additional Note: Post-Debridement Measurements/Treatment WC - Nurse 1 - General Ulcer Assessment Start: 01/27/22 14:21 Freq: Status: Active Protocol: TARYN Activity Type Activity Date Activity User E-Sign Co-Sign Detail Recorded Client Recorded Date Recorded By Document 01/27/22 14:21 MW [id number] 01/27/22 14:34 MW Document 02/03/22 13:58 BMF [id number] 02/03/22 14:11 BMF Document 02/10/22 14:25 DL [id number] 02/10/22 14:32 DL 01/27/22 02/03/22 02/10/22 14:21 13:58 14:25 WC - Today's Visit Information Type of service Initial Visit Follow-up Visit Follow-up Visit (Physician/CERTIFIED PEDIATRIC NURSE PRACTITIONER (Physician/CERTIFIED PEDIATRIC NURSE PRACTITIONER ) ) Arrival Mode Wheelchair Wheelchair Ambulatory,Cane Transfer Assistance None None None Accompanied by Patient Identification Verified (Name & Yes Yes Yes ) Patient Requires Transmission-Based No No No Precautions Safety Precautions NA Vital Signs Temperature (97.8 F-99.1 F) 97.2 F L 97 F L 98.3 F Temperature Source Temporal Temporal Temporal Pulse Rate (60-100) 77 82 94 Pulse Location Monitor Monitor Monitor Respiratory Rate (12-18) 16 16 18 Respiratory rate source Observation Observation Observation Oxygen Delivery Method Room Air Room Air Blood Pressure (90/60-120/80) 118/63 100/49 L 96/59 L Blood Pressure Mean (mm Hg) 81 66 71 Source Monitor Monitor Monitor Position Sitting Sitting Blood Pressure Location Right Arm Left Arm Have you changed medications since your No No last visit? Any new allergies or adverse reactions No No Had a fall/change in ADL's that may No No increase risk of falls Signs or symptoms of abuse and/or No No neglect since last visit Have you been in the hospital since your No No last visit? Has dressing in place as prescribed Yes Yes Has compression in place as prescribed N/A N/A Has offloadiing in place as prescribed N/A N/A Experienced any changes in pain level or No No management History Since Last Visit- (Skip if this is Patient's initial visit) Left Footwear Regular Shoe Regular Shoe Right Footwear Regular Shoe Regular Shoe Pain Scale: 0-10 Numeric Is Patient Pain Free? Yes Yes Yes Communication Assessment Preferred language Slovenian Able to Read Yes Able to Write Yes Communication Tools None Caregiver Communication Skills No Impairment Impairment Right Hearing Abillity Hard of Hearing Left Hearing Abillity Hard of Hearing Visual Assistive Devices Glasses Teaching Assessment Preferences Verbal,Written Barriers to Learning None Readiness To Learn Excellent Willingness to Engage in Self Management High Activies Readiness to Engage in Self Management High Activities Anxiety Level Calm Cooperation Cooperative Perception Coherent Interest in Health Problem Asks Questions Education Importance Acknowledges Need Smoking Status Former smoker Is Patient Diabetic Yes Functional Assessment Recent Decline in Ability to Perform Denies Any Declines Assistive Device With Patient Yes List Device(s) with Patient cane Culture/Latter Day/Clinic Lpn Cultural/Latter Day Needs that may affect Yes Treatment Plan Would you allow our hospital environmental protection inspector to Yes meet you for the purpose of spiritual/ emotional support? Clinic Lpn to contact place of taoism Yes WC - Nurse 1 - General Ulcer Measurement Start: 01/27/22 14:21 Freq: Status: Active Protocol: Activity Type Activity Date Activity User E-Sign Co-Sign Detail Recorded Client Recorded Date Recorded By Document 01/27/22 14:21 [id number] 01/27/22 14:34 Document 02/03/22 13:58 [facility] [id number] 02/03/22 14:11 [facility] Document 02/10/22 14:25 DL [id number] 02/10/22 14:32 DL 01/27/22 02/03/22 02/10/22 14:21 13:58 14:25 Wound Center Nurse 1 #1 right elbow -Combined with other wound No No -Current Size (cm) - Length 4.2 4.5 3.5 -Current Size (cm) - Width 4.3 4.6 3.6 -Current Size (cm) - Depth 0.1 0.1 0.1 -Total Square Cm 18.06 20.70 12.60 -Date of Last Picture (Recall this 01/27/22 02/03/22 field) -Photo Taken Yes Yes No -Epithelialization None Present Small 1-33% -Tunneling No No -Undermining/Tunneling No Yes -Undermining/Tunneling Starts (O'clock 8 6 ) -Undermining/Tunneling Ends (O'clock) 8 7 -Maximum Distance (cm) 1.2 0.9 -Circular Undermining No No -Exudate Amt Medium Medium Medium -Exudate Type Serosanguineous Serosanguineous Yellow/Green -Wound Margin Flat & Intact Distinct, Distinct, Outline Outline Attached Attached -Granulation Amt Large (67-100%) Large (67-100%) Medium (34-66%) -Granulation Quality Lillie Red Lillie,Red -Slough/Fibrin Yes Yes -Necrosis Amt Small (1-33%) Small (1-33%) Medium (34-66%) -Necrotic Tissue Type Adherent Slough Adherent Slough Adherent Slough -Structure Exposed N/A N/A -Texture (Mary-wound Skin Appearance) Assessed, Assessed, Scarring Localized Edema Scarring -Moisture (Mary-wound Skin Appearance) No Abnormality, Assessed,Dry/ No Abnormality Assessed Scaly -Color (Mary-wound Skin Appearance) No Abnormality, Assessed No Abnormality Assessed -Temperature (Mary-wound Skin No Abnormality No Abnormality No Abnormality Appearance) (Pt Warm) (Pt Warm) (Pt Warm) -Tenderness on Palpation (Mary-wound No No No Skin Appearance) -Ulcer Cleansing Soap and Water Rinsed/ Soap and Water Irrigated with Saline -Foul Odor after Cleansing No No No -Anesthetic Used 4% Lidocaine 5% Lidocaine 5% Lidocaine Solution Gel Gel Lower Limb Edema Present No WC - Nurse 2 - General Ulcer CM Notes Start: 01/27/22 14:21 Freq: Status: Active Protocol: Activity Type Activity Date Activity User E-Sign Co-Sign Detail Recorded Client Recorded Date Recorded By Document 01/27/22 14:56 [id number] 01/27/22 15:05 Document 02/03/22 14:46 [id number] 02/03/22 14:51 Document 02/10/22 14:41 [id number] 02/10/22 14:44 01/27/22 02/03/22 02/10/22 14:56 14:46 14:41 Wound Center Nurse 2 #1 right elbow -Time 14:56 14:46 14:41 -Correct Patient Yes Yes Yes -Correct Side, Site, Position Yes Yes Yes -Correct Procedure Yes Yes Yes -Procedure Performed Yes Yes Yes -Type of Procedure Debridement Debridement Debridement -Clinical Debridement Muscle / Fascia Subcutaneous Subcutaneous -Tissue Removed Muscle Subcutaneous Subcutaneous -Post Debridement (cm) - Length 5.5 5.0 4.0 -Post Debridement (cm) - Width 5.5 4.8 3.5 -Post Debridement (cm) - Depth 0.7 0.5 0.2 -Total Square (Post) (cm) 30.25 24.00 14.00 -Area of Debridement (cm) - Length 5.5 5.0 4.0 -Area of Debridement (cm) - Width 5.5 4.8 3.5 -Total Square (Area) (cm) 30.25 24.00 14.00 -Tunneling Yes Yes No -Tunneling Position (O'clock) 6 6 -Tunneling Distance (cm) 1.4 1.4 -Undermining/Tunneling No No No -Circular Undermining No No No -Wound/Ulcer Outcome Not Healed Not Healed Not Healed -Ulcer Cleansing Rinsed/ Rinsed/ Rinsed/ Irrigated with Irrigated with Irrigated with Saline Saline Saline -Foul Odor after Cleansing No No No -Bioengineered Tissue No No No -Bleeding Controlled with Pressure,Silver Pressure Pressure Nitrate -Treatment Response Procedure Procedure Procedure Tolerated Well Tolerated Well Tolerated Well -Offloading No No No -Debridement - Subq, 1st 20sq cm Yes Yes -Debridement, SubQ, ea addt'l 20sq cm 1 or part thereof -Debridement - Muscle / Fascia, 1st Yes 20sq cm -Debridement, Muscle/Fascia, ea addt'l 1 20sq cm or part thereof Pain Scale: 0-10 Numeric Is Patient Pain Free? Yes Yes Yes WC - Nurse 3 - General Ulcer D/C NN Start: 01/27/22 14:21 Freq: Status: Active Protocol: Activity Type Activity Date Activity User E-Sign Co-Sign Detail Recorded Client Recorded Date Recorded By Document 01/27/22 15:15 MW [id number] 01/27/22 15:16 MW Document 02/03/22 15:04 AK [id number] 02/03/22 15:05 AK Document 02/10/22 14:50 DL [id number] 02/10/22 14:52 DL 01/27/22 02/03/22 02/10/22 15:15 15:04 14:50 Wound Care Nurse 3 #1 right elbow -Ulcer Cleansing Rinsed/ Rinsed/ Rinsed/ Irrigated with Irrigated with Irrigated with Saline Saline Saline -Foul Odor after Cleansing No No No -Negative Pressure Wound Therapy N/A N/A -Primary Dressing Applied Silvercel Silvercel Silvercel -Other Dressing coban -Primary Dressing Covered/Secured with Dry Gauze & Dry Gauze Dry Gauze & Roll Gauze, Roll Gauze, Secured with Secured with Tape Tape -Other Covering coban -Silvercel 1 1 1 Treatment Response Procedure Procedure Tolerated Well Tolerated Well Pain Scale: 0-10 Numeric Is Patient Pain Free? Yes Yes Yes Teaching: Wound Center Dressing Your Wound -Person Taught Patient,Family -Teaching Method Discussion, Demonstration -Response to teaching Verbalize understanding WC - Visit Discharge Discharge Condition Unstable Stable Stable Ambulatory Status Ambulatory, Wheelchair Ambulatory, Wheelchair Wheelchair Transportation Private Auto Private Auto Private Auto Accompanied by Medication Reconcilliation completed & No Yes provided to patient/care provider Clinical Summary of Care Provided Yes Yes Assessment/Plan Assessment/Plan (1) Recurrent falls: CODE(S): R29.6 - Repeated falls (2) Open wound of right elbow: CODE(S): S51.001A - Unspecified open wound of right elbow, initial encounter QUALIFIERS: Encounter type: subsequent encounter Qualified Code(s): S51.001D - Unspecified open wound of right elbow, subsequent encounter (3) Type 2 diabetes mellitus: CODE(S): E11.9 - Type 2 diabetes mellitus without complications (4) halfway (current) use of anticoagulants: CODE(S): Z79.01 - halfway (current) use of anticoagulants PLAN: Patient was evaluated at the wound healing center today and a debridement was performed as previously documented. Wound care - Silvercel covered with gauze daily. May wrap co-band to secure the dressing. May wash the wound with soap and water before changing the dressing. His is doing a nice job on his dressing changes. Encouraged low carbohydrate diet and high protein intake to help with wound healing. He has switched his PCP to Dr. Red who ordered PT. Follow up two weeks.
== END 2022-02-10 23:59 | disposition home or self-care (01) ==
LOC: WC 14:30
PROVIDERS: PCP Family Medicine; Visit Provider Nurse Practitioner Family
DX: S51.011A Laceration without foreign body of right elbow, initial encounter (principal); I48.91 Unspecified atrial fibrillation; E11.9 Type 2 diabetes mellitus without complications; I10 Essential (primary) hypertension; E78.5 Hyperlipidemia, unspecified; Z87.891 Personal history of nicotine dependence; Z79.01 Long term (current) use of anticoagulants; Z86.73 Personal history of transient ischemic attack (TIA), and cerebral infarction without residual deficits; R29.6 Repeated falls; W19.XXXA Unspecified fall, initial encounter
CPT/HCPCS: 11042; 11043; 11045; 11046; 99213; G0463

== ENCOUNTER 2022-03-09 10:45 | Outpatient (RCR) | payer MEDICARE, BC, SELFPAY ==
[2022-02-11 01:16] VITALS: BP 96/59; PULSE 94; RESP 18; TEMP 36.8
[2022-02-23 13:49] VITALS: BP 96/56; PULSE 81; RESP 18; TEMP 36.4
--- NOTE | 2022-02-23 15:23 | PCM.WC.PN ---
History of Present Illness Date of Service: 02/23/22 Chief Complaint: Right elbow wound History of Wound: Patient fell last week and hit his right elbow and had a skin tear. He went to [facility] in [place] and they told him top place antibiotic ointment on the wound daily and referred him to the wound center. Patient's states that he has had 3 falls in the past month, which not normal. She states that she has told his PCP about this. This most recent fall was 01/17/22 where he fell at home and bumped his elbow. He fell in a parking lot and hit his head on 01/05/22. Patient has a history of diabetes, Afib and stroke. Patient developed a painful bruised area on left elbow over the past couple days. Patient's states that this is the elbow that he hit the first time he fell and went to the ED and they did nothing about. She states she noticed it was bruised, painful to touch and soft 2 days ago. The patient states that he is not feeling well over the past couple days but denies fever, chills, nausea or vomiting. I&D of left elbow performed today, 02/23/22. Wound care - Right elbow ulcer Collagen hydrogel covered with adaptic and topped with gauze, secure with co band. New left elbow wound pack Aquacel-Ag into the base of the ulcer daily covered with gauze and secured with co-band. Patient denies any fever, chills, nausea or vomiting. He states his appetite is good. Progress of Wound: Right lateral elbow much improved. The tunnel has healed. The ulcer is smaller in size and beefy pink. There is a 1 cm diameter soft, fluctuant area on his left elbow. It is painful when palpated. It a purple color with pink/red surrounding the area. Able to express small amount of blood and purulent drainage but very painful to touch. He denies any recent trauma but his states that when he fell for the first time in December he had a wound to this area that nothing was done to it and all of a sudden over the past 2 days it has become red, painful and swollen. I&D performed as documented in note. Objective Data Objective Data Vital Signs: Vital Signs Temp Pulse Resp BP 97.5 F L 81 18 96/56 L 02/23/22 13:49 02/23/22 13:49 02/23/22 13:49 02/23/22 13:49 Charges/Coding Procedures Integumentary 10xxx: [id number] Drainage of skin abscess (left elbow) 111xxx-113xx: [id number] Gladys subq tissue 20 sq cm/< (right elbow) Physical Exam Const alert and no apparent distress General Appearance: cooperative HEENT normocephalic Resp normal respiratory effort Cardio regular rate Extremity normal capillary refill Extremity Narrative: Left and right radial pulse present, no edema present. Skin Wound Narrative: Right lateral elbow much improved. The tunnel has healed. The ulcer is smaller in size and beefy pink. There is a 1 cm diameter soft, fluctuant area on his left elbow. It is painful when palpated. It a purple color with pink/red surrounding the area. Able to express small amount of blood and purulent drainage. Neuro Sensorium / Orientation: awake and alert Psych Appearance: well kempt Debridement Note Debridement Note Wound debrided: lateral elbow wound Laterality: Right Type of Debridement: Excisional debridement Anesthesia Used: 5% Lidocaine Gel Depth: Down to and including healthy tissue and in the subcutaneous layer Percentage of wound debrided: 100 Instrument Used: 3mm curette Tissue Removed: Non viable tissue and slough Severity: Fat Layer Exposed Amount of bleeding with debridement: Mild Bleeding Controlled with: Pressure and Compression and gauze Patient tolerated procedure: Patient tolerated procedure well Post-Debridement Measurements and Additional Note: Post-Debridement Measurements/Treatment WC - Nurse 1 - General Ulcer Assessment Start: 02/23/22 13:45 Freq: Status: Active Protocol: TARYN Activity Type Activity Date Activity User E-Sign Co-Sign Detail Recorded Client Recorded Date Recorded By Document 02/23/22 13:49 [id number] 02/23/22 14:00 DL 02/23/22 13:49 - Today's Visit Information Type of service 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 ) Arrival Mode Wheelchair Transfer Assistance None Patient Identification Verified (Name & Yes ) Patient Requires Transmission-Based No Precautions Finger Stick Blood Sugar(mg/dl) (if not checked indicated): Blood Sugar Stated by Patient Vital Signs Temperature (97.8 F-99.1 F) 97.5 F L Temperature Source Temporal Pulse Rate (60-100) 81 Pulse Location Monitor Respiratory Rate (12-18) 18 Respiratory rate source Observation Blood Pressure (90/60-120/80) 96/56 L Blood Pressure Mean (mm Hg) 69 History Since Last Visit- (Skip if this is Patient's initial visit) Have you changed medications since your No last visit? Any new allergies or adverse reactions No Had a fall/change in ADL's that may No increase risk of falls Signs or symptoms of abuse and/or No neglect since last visit Have you been in the hospital since your No last visit? Has dressing in place as prescribed Yes Has compression in place as prescribed N/A Has offloadiing in place as prescribed N/A Experienced any changes in pain level or No management Pain Scale: 0-10 Numeric Is Patient Pain Free? Yes WC - Nurse 1 - General Ulcer Measurement Start: 02/23/22 13:45 Freq: Status: Active Protocol: Activity Type Activity Date Activity User E-Sign Co-Sign Detail Recorded Client Recorded Date Recorded By Document 02/23/22 13:49 DL [id number] 02/23/22 14:00 DL 02/23/22 13:49 Wound Center Nurse 1 #2 L elbow -Current Size (cm) - Length 0.1 -Current Size (cm) - Width 0.1 -Current Size (cm) - Depth 0.1 -Total Square Cm 0.01 -Photo Taken Yes -Exudate Amt Small -Exudate Type Sanguineous -Wound Margin Distinct, Outline Attached -Granulation Amt None Present (0 %) -Necrosis Amt None Present (0 %) -Structure Exposed N/A -Texture (Mary-wound Skin Appearance) Scarring -Moisture (Mary-wound Skin Appearance) No Abnormality -Color (Mary-wound Skin Appearance) No Abnormality -Temperature (Mary-wound Skin No Abnormality Appearance) (Pt Warm) -Tenderness on Palpation (Mary-wound No Skin Appearance) -Ulcer Cleansing Rinsed/ Irrigated with Saline -Foul Odor after Cleansing No -Anesthetic Used 5% Lidocaine Gel #1 right elbow -Current Size (cm) - Length 0.7 -Current Size (cm) - Width 0.8 -Current Size (cm) - Depth 0.1 -Total Square Cm 0.56 -Photo Taken Yes -Exudate Amt None Present -Wound Margin Thickened -Granulation Amt Large (67-100%) -Granulation Quality [place] -Necrosis Amt None Present (0 %) -Structure Exposed N/A -Texture (Mary-wound Skin Appearance) Scarring -Moisture (Mary-wound Skin Appearance) Assessed -Color (Mary-wound Skin Appearance) No Abnormality -Temperature (Mary-wound Skin No Abnormality Appearance) (Pt Warm) -Tenderness on Palpation (Mary-wound No Skin Appearance) -Ulcer Cleansing Rinsed/ Irrigated with Saline -Foul Odor after Cleansing No -Anesthetic Used 5% Lidocaine Gel WC - Nurse 2 - General Ulcer CM Notes Start: 02/23/22 13:45 Freq: Status: Active Protocol: Activity Type Activity Date Activity User E-Sign Co-Sign Detail Recorded Client Recorded Date Recorded By Document 02/23/22 14:34 NISHA [id number] 02/23/22 14:42 NISHA Edit Result 02/23/22 14:34 JF (1) [id number] 02/23/22 15:08 JF (1) #2 L elbow - Time => 15:07 - Correct Patient No => Yes - Correct Side, Site, Position No => Yes - Correct Procedure No => Yes - Procedure Performed No => Yes - Type of Procedure => Incision & => Drainage - Post Debridement (cm) - Length => 1.0 - Post Debridement (cm) - Width => 0.8 - Post Debridement (cm) - Depth => 0.8 - Total Square (Post) (cm) => 0.80 - Area of Debridement (cm) - Length => 1.0 - Area of Debridement (cm) - Width => 0.8 - Total Square (Area) (cm) => 0.80 - Tunneling => No - Undermining/Tunneling => No - Circular Undermining => No - Wound/Ulcer Outcome => Not Healed - Ulcer Cleansing => Rinsed/Irrigated => with Saline - Foul Odor after Cleansing => No - Bioengineered Tissue => No - Bleeding Controlled with => Pressure - Treatment Response => Procedure => Tolerated Well - Offloading => No - Debridement - Subq, 1st 20sq cm => No - I&D / Paring / Biopsy => I&D abscess - => single or simple 02/23/22 14:34 Wound Center Nurse 2 #2 L elbow -Time 15:07 -Correct Patient Yes -Correct Side, Site, Position Yes -Correct Procedure Yes -Procedure Performed Yes -Type of Procedure Incision & Drainage -Post Debridement (cm) - Length 1.0 -Post Debridement (cm) - Width 0.8 -Post Debridement (cm) - Depth 0.8 -Total Square (Post) (cm) 0.80 -Area of Debridement (cm) - Length 1.0 -Area of Debridement (cm) - Width 0.8 -Total Square (Area) (cm) 0.80 -Tunneling No -Undermining/Tunneling No -Circular Undermining No -Wound/Ulcer Outcome Not Healed -Ulcer Cleansing Rinsed/ Irrigated with Saline -Foul Odor after Cleansing No -Bioengineered Tissue No -Bleeding Controlled with Pressure -Treatment Response Procedure Tolerated Well -Offloading No -Debridement - Subq, 1st 20sq cm No -I&D / Paring / Biopsy I&D abscess - single or simple #1 right elbow -Time 14:35 -Correct Patient Yes -Correct Side, Site, Position Yes -Correct Procedure Yes -Procedure Performed Yes -Type of Procedure Debridement -Clinical Debridement Subcutaneous -Tissue Removed Subcutaneous -Post Debridement (cm) - Length 1.7 -Post Debridement (cm) - Width 1.0 -Post Debridement (cm) - Depth 0.1 -Total Square (Post) (cm) 1.70 -Area of Debridement (cm) - Length 1.7 -Area of Debridement (cm) - Width 1.0 -Total Square (Area) (cm) 1.70 -Tunneling No -Undermining/Tunneling No -Circular Undermining No -Wound/Ulcer Outcome Not Healed -Ulcer Cleansing Rinsed/ Irrigated with Saline -Foul Odor after Cleansing No -Bioengineered Tissue No -Bleeding Controlled with Pressure -Treatment Response Procedure Tolerated Well -Offloading No -Debridement - Subq, 1st 20sq cm Yes Pain Scale: 0-10 Numeric Is Patient Pain Free? Yes WC - Nurse 3 - General Ulcer D/C NN Start: 02/23/22 13:45 Freq: Status: Active Protocol: Activity Type Activity Date Activity User E-Sign Co-Sign Detail Recorded Client Recorded Date Recorded By Document 02/23/22 15:10 NISHA [id number] 02/23/22 15:11 NISHA 02/23/22 15:10 Wound Care Nurse 3 #2 L elbow -Ulcer Cleansing Rinsed/ Irrigated with Saline -Foul Odor after Cleansing No -Primary Dressing Applied Aquacel AG 2x2 -Primary Dressing Covered/Secured with Dry Gauze, Secured with Tape -Aquacel AG 2x2 1 #1 right elbow -Ulcer Cleansing Rinsed/ Irrigated with Saline -Foul Odor after Cleansing No -Primary Dressing Applied C Hydrogel ($) -Primary Dressing Covered/Secured with Dry Gauze, Secured with Tape Pain Scale: 0-10 Numeric Is Patient Pain Free? Yes WC - Visit Discharge Discharge Condition Stable Ambulatory Status Ambulatory Transportation Private Auto Accompanied by Medication Reconcilliation completed & Yes provided to patient/care provider Clinical Summary of Care Provided Yes Additional Wound Wound debrided: Elbow Laterality: Left Type of Debridement: - (I&D) Anesthesia Used: - (1 % lidocaine with epinephrine 1.2 ml injected into surrounding tissue) Depth: in the subcutaneous layer Instrument Used: #11 blade Tissue Removed: I&D of elbow, small amount of bloody and purulent drainage Severity: Fat Layer Exposed Amount of bleeding with debridement: Mild Bleeding Controlled with: Pressure and Compression and gauze Patient tolerated procedure: Patient tolerated procedure well Operative Diagnosis: traumatic hematoma of left elbow Assessment/Plan Assessment/Plan (1) Open wound of right elbow: CODE(S): S51.001A - Unspecified open wound of right elbow, initial encounter QUALIFIERS: Encounter type: subsequent encounter Qualified Code(s): S51.001D - Unspecified open wound of right elbow, subsequent encounter (2) Abscess of left elbow: CODE(S): L02.414 - Cutaneous abscess of left upper limb (3) Traumatic hematoma of left elbow: CODE(S): S50.02XA - Contusion of left elbow, initial encounter (4) Pain and swelling of left elbow: CODE(S): M25.522 - Pain in left elbow; M25.422 - Effusion, left elbow (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 Discussed with patient and his about opening the left elbow to help relieve the pressure and clean out the area. Verbal agreement obtained. I&D of left elbow performed after area was numbed with lidocaine/epi 1.2 ml. Once patient was not able to feel pain with palpation, incision made with #11 scalpel. Small amount of old dark red blood and purulent drainage obtained. Wound culture obtained of the area. Able to palpate to the facia, ulcer measures 1.7 cm x 1 cm x 1.7 cm. Irrigated with saline. Patient tolerated procedure well. Will pack Aqucel - Ag into the base of the ulcer daily and cover with gauze and secure with coband. Will start the patient on Doxycycline due to the redness of the area. Depending on the results of the culture, it may necessitate the need to change the antibiotics. Wound care - Left elbow place collagen hydrogel covered with adaptic and topped with gauze, secure with coband. On the right elbow place Silvercel into the base of the wound, covered with gauze daily. May wrap co-band to secure the dressing. May wash the wound with soap and water before changing the dressing. His is doing a nice job on his dressing changes. Encouraged low carbohydrate diet and high protein intake to help with wound healing. He has switched his PCP to Dr. Red who ordered PT. Follow up one week. Call or come in sooner if have any questions or concerns.
[2022-03-02 11:05] VITALS: BP 111/58; PULSE 78; TEMP 36.6
--- NOTE | 2022-03-02 12:27 | PCM.WC.PN ---
History of Present Illness Date of Service: 03/02/22 Chief Complaint: Right elbow wound History of Wound: Patient fell and hit his right elbow and had a skin tear. He went to [facility] in [place] and they told him top place antibiotic ointment on the wound daily and referred him to the wound center. Patient's states that he has had 3 falls in the past month, which not normal. She states that she has told his PCP about this. This most recent fall was 01/17/22 where he fell at home and bumped his elbow. He fell in a parking lot and hit his head on 01/05/22. Patient has a history of diabetes, Afib and stroke. Patient developed a painful bruised area on left elbow last week. Patient's states that this is the elbow that he hit the first time he fell and went to the ED and they did nothing about. She states she noticed it was bruised, painful to touch and soft 2 days ago. The patient states that he is not feeling well over the past couple days but denies fever, chills, nausea or vomiting. I&D of left elbow performed 02/23/22. Wound culture obtained on 02/23/22 which was positive for Staphylococcus aureus. He was started on Doxycycline. Wound care - Right elbow ulcer and left elbow wound place Collagen hydrogel covered with adaptic and topped with gauze and secure with tape daily. Patient denies any fever, chills, nausea or vomiting. He states his appetite is good. Progress of Wound: Right lateral elbow is healing well. Left elbow wound is healing well, the tunnel has decreased in depth. There is no bruising and the pain has resolved. Objective Data Objective Data Vital Signs: Vital Signs Temp Pulse Resp BP 97.8 F 78 18 111/58 L 03/02/22 11:05 03/02/22 11:05 02/23/22 13:49 03/02/22 11:05 Lab / Micro Data Micro: Microbiology 02/24/22 Unknown Wound Abcess - Elbow Gram Stain - Final 02/24/22 Unknown Wound Abcess - Elbow Wound Culture - Final Staphylococcus aureus 02/24/22 Unknown Wound Abcess - Elbow Anaerobic Culture - Final No anaerobic bacteria isolated. Charges/Coding Procedures Integumentary 111xxx-113xx: [id number] Gladys subq tissue 20 sq cm/< Physical Exam Const alert and no apparent distress General Appearance: cooperative HEENT normocephalic Resp normal respiratory effort Cardio regular rate Extremity normal capillary refill Extremity Narrative: Left and right radial pulse present, no edema present. Skin Wound Narrative: Right lateral elbow much improved. The tunnel has healed. The ulcer is smaller in size and beefy pink. The left elbow is healing well. The tunnel has decreased in depth, the bruising and fluctuation has resolved. Neuro Sensorium / Orientation: awake and alert Psych Appearance: well kempt Debridement Note Debridement Note Wound debrided: lateral elbow wound Laterality: Right Type of Debridement: Excisional debridement Anesthesia Used: 5% Lidocaine Gel Depth: Down to and including healthy tissue and in the subcutaneous layer Percentage of wound debrided: 100 Instrument Used: 3mm curette Tissue Removed: Non viable tissue and slough Severity: Fat Layer Exposed Amount of bleeding with debridement: Mild Bleeding Controlled with: Pressure and Compression and gauze Patient tolerated procedure: Patient tolerated procedure well Post-Debridement Measurements and Additional Note: Post-Debridement Measurements/Treatment - Nurse 1 - General Ulcer Assessment Start: 02/23/22 13:45 Freq: Status: Active Protocol: TARYN Activity Type Activity Date Activity User E-sign Co-sign Detail Recorded Client Recorded Date Recorded By Document 02/23/22 13:49 DL [id number] 02/23/22 14:00 DL Document 03/02/22 11:05 AK [id number] 03/02/22 11:08 AK 02/23/22 03/02/22 13:49 11:05 - Today's Visit Information Type of service Follow-up Visit Follow-up Visit (Physician/OCCUPATIONAL THERAPIST'S ASSISTANT (Physician/OCCUPATIONAL THERAPIST'S ASSISTANT ) ) Arrival Mode Wheelchair Ambulatory Transfer Assistance None Patient Identification Verified (Name & Yes Yes ) Patient Requires Transmission-Based No No Precautions Safety Precautions NA Finger Stick Blood Sugar(mg/dl) (if not checked indicated): Blood Sugar Stated by Patient Vital Signs Temperature (97.8 F-99.1 F) 97.5 F L 97.8 F Temperature Source Temporal Temporal Pulse Rate (60-100) 81 78 Pulse Location Monitor Monitor Respiratory Rate (12-18) 18 Respiratory rate source Observation Blood Pressure (90/60-120/80) 96/56 L 111/58 L Blood Pressure Mean (mm Hg) 69 75 Source Monitor History Since Last Visit- (Skip if this is Patient's initial visit) Have you changed medications since your No No last visit? Any new allergies or adverse reactions No No Had a fall/change in ADL's that may No No increase risk of falls Signs or symptoms of abuse and/or No No neglect since last visit Have you been in the hospital since your No No last visit? Has dressing in place as prescribed Yes Yes Has compression in place as prescribed N/A N/A Has offloadiing in place as prescribed N/A N/A Experienced any changes in pain level or No No management Left Footwear Regular Shoe Right Footwear Regular Shoe Pain Scale: 0-10 Numeric Is Patient Pain Free? Yes Yes WC - Nurse 1 - General Ulcer Measurement Start: 02/23/22 13:45 Freq: Status: Active Protocol: Activity Type Activity Date Activity User E-sign Co-sign Detail Recorded Client Recorded Date Recorded By Document 02/23/22 13:49 DL [id number] 02/23/22 14:00 DL Document 03/02/22 11:05 AK [id number] 03/02/22 11:08 AK 02/23/22 03/02/22 13:49 11:05 Wound Center Nurse 1 #2 L elbow -Combined with other wound No -Current Size (cm) - Length 0.1 0.5 -Current Size (cm) - Width 0.1 0.4 -Current Size (cm) - Depth 0.1 0.1 -Total Square Cm 0.01 0.20 -Date of Last Picture (Recall this 03/02/22 field) -Photo Taken Yes Yes -Epithelialization Small 1-33% -Tunneling No -Undermining/Tunneling No -Circular Undermining No -Classification - Thickness Partial Thickness -Change in Wound Grade/Stage No -Exudate Amt Small Small -Exudate Type Sanguineous Serosanguineous -Wound Margin Distinct, Flat & Intact Outline Attached -Granulation Amt None Present (0 Small (1-33%) %) -Granulation Quality N/A,Red -Slough/Fibrin Yes -Necrosis Amt None Present (0 Medium (34-66%) %) -Necrotic Tissue Type Adherent Slough -Structure Exposed N/A N/A -Texture (Mary-wound Skin Appearance) Scarring No Abnormality, Assessed -Moisture (Mary-wound Skin Appearance) No Abnormality No Abnormality, Assessed -Color (Mary-wound Skin Appearance) No Abnormality No Abnormality, Assessed -Temperature (Mary-wound Skin No Abnormality No Abnormality Appearance) (Pt Warm) (Pt Warm) -Tenderness on Palpation (Mary-wound No No Skin Appearance) -Ulcer Cleansing Rinsed/ Rinsed/ Irrigated with Irrigated with Saline Saline -Foul Odor after Cleansing No No -Anesthetic Used 5% Lidocaine 4% Lidocaine Gel Solution #1 right elbow -Combined with other wound No -Current Size (cm) - Length 0.7 0.1 -Current Size (cm) - Width 0.8 0.1 -Current Size (cm) - Depth 0.1 0.1 -Total Square Cm 0.56 0.01 -Date of Last Picture (Recall this 03/02/22 field) -Photo Taken Yes Yes -Tunneling No -Undermining/Tunneling No -Circular Undermining No -Exudate Amt None Present Small -Exudate Type Serosanguineous -Wound Margin Thickened Distinct, Outline Attached -Granulation Amt Large (67-100%) Small (1-33%) -Granulation Quality [place] -Slough/Fibrin Yes -Necrosis Amt None Present (0 Small (1-33%) %) -Necrotic Tissue Type Adherent Slough -Structure Exposed N/A N/A -Texture (Mary-wound Skin Appearance) Scarring No Abnormality, Assessed -Moisture (Mary-wound Skin Appearance) Assessed No Abnormality, Assessed -Color (Mary-wound Skin Appearance) No Abnormality No Abnormality, Assessed -Temperature (Mary-wound Skin No Abnormality No Abnormality Appearance) (Pt Warm) (Pt Warm) -Tenderness on Palpation (Mary-wound No No Skin Appearance) -Ulcer Cleansing Rinsed/ Rinsed/ Irrigated with Irrigated with Saline Saline -Foul Odor after Cleansing No No -Anesthetic Used 5% Lidocaine 4% Lidocaine Gel Solution WC - Nurse 2 - General Ulcer CM Notes Start: 02/23/22 13:45 Freq: Status: Active Protocol: Activity Type Activity Date Activity User E-sign Co-sign Detail Recorded Client Recorded Date Recorded By Document 02/23/22 14:34 NISHA [id number] 02/23/22 14:42 JF Edit Result 02/23/22 14:34 JF (1) [id number] 02/23/22 15:08 Document 03/02/22 11:33 [id number] 03/02/22 11:36 (1) #2 L elbow - Time => 15:07 - Correct Patient No => Yes - Correct Side, Site, Position No => Yes - Correct Procedure No => Yes - Procedure Performed No => Yes - Type of Procedure => Incision & => Drainage - Post Debridement (cm) - Length => 1.0 - Post Debridement (cm) - Width => 0.8 - Post Debridement (cm) - Depth => 0.8 - Total Square (Post) (cm) => 0.80 - Area of Debridement (cm) - Length => 1.0 - Area of Debridement (cm) - Width => 0.8 - Total Square (Area) (cm) => 0.80 - Tunneling => No - Undermining/Tunneling => No - Circular Undermining => No - Wound/Ulcer Outcome => Not Healed - Ulcer Cleansing => Rinsed/Irrigated => with Saline - Foul Odor after Cleansing => No - Bioengineered Tissue => No - Bleeding Controlled with => Pressure - Treatment Response => Procedure => Tolerated Well - Offloading => No - Debridement - Subq, 1st 20sq cm => No - I&D / Paring / Biopsy => I&D abscess - => single or simple 02/23/22 03/02/22 14:34 11:33 Wound Center Nurse 2 #2 L elbow -Time 15:07 11:33 -Correct Patient Yes Yes -Correct Side, Site, Position Yes Yes -Correct Procedure Yes Yes -Procedure Performed Yes Yes -Type of Procedure Incision & Debridement Drainage -Clinical Debridement Subcutaneous -Tissue Removed Subcutaneous -Post Debridement (cm) - Length 1.0 0.8 -Post Debridement (cm) - Width 0.8 0.7 -Post Debridement (cm) - Depth 0.8 0.3 -Total Square (Post) (cm) 0.80 0.56 -Area of Debridement (cm) - Length 1.0 0.8 -Area of Debridement (cm) - Width 0.8 0.7 -Total Square (Area) (cm) 0.80 0.56 -Tunneling No No -Undermining/Tunneling No No -Circular Undermining No No -Wound/Ulcer Outcome Not Healed Not Healed -Ulcer Cleansing Rinsed/ Rinsed/ Irrigated with Irrigated with Saline Saline -Foul Odor after Cleansing No No -Bioengineered Tissue No No -Bleeding Controlled with Pressure Pressure -Treatment Response Procedure Procedure Tolerated Well Tolerated Well -Offloading No No -Debridement - Subq, 1st 20sq cm No No -I&D / Paring / Biopsy I&D abscess - single or simple #1 right elbow -Time 14:35 11:34 -Correct Patient Yes Yes -Correct Side, Site, Position Yes Yes -Correct Procedure Yes Yes -Procedure Performed Yes Yes -Type of Procedure Debridement Debridement -Clinical Debridement Subcutaneous Subcutaneous -Tissue Removed Subcutaneous Subcutaneous -Post Debridement (cm) - Length 1.7 0.5 -Post Debridement (cm) - Width 1.0 0.4 -Post Debridement (cm) - Depth 0.1 0.1 -Total Square (Post) (cm) 1.70 0.20 -Area of Debridement (cm) - Length 1.7 0.5 -Area of Debridement (cm) - Width 1.0 0.4 -Total Square (Area) (cm) 1.70 0.20 -Tunneling No No -Undermining/Tunneling No No -Circular Undermining No No -Wound/Ulcer Outcome Not Healed Not Healed -Ulcer Cleansing Rinsed/ Rinsed/ Irrigated with Irrigated with Saline Saline -Foul Odor after Cleansing No No -Bioengineered Tissue No No -Bleeding Controlled with Pressure Pressure -Treatment Response Procedure Procedure Tolerated Well Tolerated Well -Offloading No No -Debridement - Subq, 1st 20sq cm Yes Yes Pain Scale: 0-10 Numeric Is Patient Pain Free? Yes Yes - Nurse 3 - General Ulcer D/C NN Start: 02/23/22 13:45 Freq: Status: Active Protocol: Activity Type Activity Date Activity User E-sign Co-sign Detail Recorded Client Recorded Date Recorded By Document 02/23/22 15:10 [id number] 02/23/22 15:11 Document 03/02/22 11:41 DL [id number] 03/02/22 11:43 DL 02/23/22 03/02/22 15:10 11:41 Wound Care Nurse 3 #2 L elbow -Ulcer Cleansing Rinsed/ Rinsed/ Irrigated with Irrigated with Saline Saline -Foul Odor after Cleansing No No -Primary Dressing Applied Aquacel AG 2x2 NonAdherent Contact Layer -Other Dressing hydrogel -Primary Dressing Covered/Secured with Dry Gauze, Dry Gauze & Secured with Roll Gauze, Tape Secured with Tape -Aquacel AG 2x2 1 #1 right elbow -Ulcer Cleansing Rinsed/ Rinsed/ Irrigated with Irrigated with Saline Saline -Foul Odor after Cleansing No No -Primary Dressing Applied C Hydrogel ($) C Hydrogel ($) -Other Dressing hydrogel -Primary Dressing Covered/Secured with Dry Gauze, Dry Gauze & Secured with Roll Gauze, Tape Secured with Tape Treatment Response Procedure Tolerated Well Pain Scale: 0-10 Numeric Is Patient Pain Free? Yes Yes WC - Visit Discharge Discharge Condition Stable Stable Ambulatory Status Ambulatory Wheelchair Transportation Private Auto Private Auto Accompanied by Medication Reconcilliation completed & Yes provided to patient/care provider Clinical Summary of Care Provided Yes Additional Wound Wound debrided: elbow wound Laterality: Left Type of Debridement: Excisional debridement Anesthesia Used: 5% Lidocaine Gel Depth: Down to and including healthy tissue and in the subcutaneous layer Percentage of wound debrided: 100 Instrument Used: 3mm curette Tissue Removed: Non viable tissue and slough Severity: Fat Layer Exposed Amount of bleeding with debridement: Mild Bleeding Controlled with: Pressure Patient tolerated procedure: Patient tolerated procedure well Assessment/Plan Assessment/Plan (1) Open wound of right elbow: CODE(S): S51.001A - Unspecified open wound of right elbow, initial encounter QUALIFIERS: Encounter type: subsequent encounter Qualified Code(s): S51.001D - Unspecified open wound of right elbow, subsequent encounter (2) Abscess of left elbow: CODE(S): L02.414 - Cutaneous abscess of left upper limb (3) Traumatic hematoma of left elbow: CODE(S): S50.02XA - Contusion of left elbow, initial encounter (4) Pain and swelling of left elbow: CODE(S): M25.522 - Pain in left elbow; M25.422 - Effusion, left elbow (5) scheduling agent (current) use of anticoagulants: CODE(S): Z79.01 - half-way (current) use of anticoagulants (6) Recurrent falls: CODE(S): R29.6 - Repeated falls (7) Type 2 diabetes mellitus: CODE(S): E11.9 - Type 2 diabetes mellitus without complications PLAN: Plan Patient was evaluated at the wound healing center today and a debridement was performed on right elbow as previously documented. Wound care - Right and left elbow place collagen hydrogel covered with adaptic and topped with gauze, secure with tape. May wash the wound with soap and water before changing the dressing. His is doing a nice job on his dressing changes. Wound culture obtained 02/23/22 which was positive for Staphylococcus aureus and he was started on Doxycycline. Encouraged low carbohydrate diet and high protein intake to help with wound healing. He has switched his PCP to Dr. Red who ordered PT. Follow up one week. Call or come in sooner if have any questions or concerns.
[2022-03-09 10:43] VITALS: BP 117/64; PULSE 74; TEMP 36.3
--- NOTE | 2022-03-09 11:08 | PN.PCM_ITS ---
History of Present Illness Date of Service: 03/09/22 Chief Complaint: Right elbow wound History of Wound: Patient fell and hit his right elbow and had a skin tear. He went to [facility] in [place] and they told him top place antibiotic ointment on the wound daily and referred him to the wound center. Patient's states that he has had 3 falls in the past month, which not normal. She states that she has told his PCP about this. This most recent fall was 01/17/22 where he fell at home and bumped his elbow. He fell in a parking lot and hit his head on 01/05/22. Patient has a history of diabetes, Afib and stroke. Patient developed a painful bruised area on left elbow last week. Patient's states that this is the elbow that he hit the first time he fell and went to the ED and they did nothing about. She states she noticed it was bruised, painful to touch and soft 2 days ago. The patient states that he is not feeling well over the past couple days but denies fever, chills, nausea or vomiting. I&D of left elbow performed 02/23/22. Wound culture obtained on 02/23/22 which was positive for Staphylococcus aureus. He was started on Doxycycline. Wound care - Right elbow ulcer is healed. The left elbow wound place Collagen hydrogel covered with adaptic and topped with gauze or a band-aid daily. Patient denies any fever, chills, nausea or vomiting. He states his appetite is good. Progress of Wound: Right lateral elbow is healed today. Left elbow wound is healing well, the tunnel has decreased in over all size. It has very small opening.depth. Objective Data Objective Data Vital Signs: Vital Signs Temp Pulse Resp BP 97.4 F L 74 18 117/64 03/09/22 10:43 03/09/22 10:43 02/23/22 13:49 03/09/22 10:43 Lab / Micro Data Micro: Microbiology 02/24/22 Unknown Wound Abcess - Elbow Gram Stain - Final 02/24/22 Unknown Wound Abcess - Elbow Wound Culture - Final Staphylococcus aureus 02/24/22 Unknown Wound Abcess - Elbow Anaerobic Culture - Final No anaerobic bacteria isolated. Charges/Coding Procedures Integumentary 111xxx-113xx: [id number] Gladys subq tissue 20 sq cm/< Physical Exam Const alert and no apparent distress General Appearance: cooperative HEENT normocephalic Resp normal respiratory effort Cardio regular rate Extremity normal capillary refill Extremity Narrative: Left and right radial pulse present, no edema present. Skin Wound Narrative: Right lateral elbow wound is healed. The left elbow is healing well, the overall wound is much smaller in size and depth.l Neuro Sensorium / Orientation: awake and alert Psych Appearance: well kempt Debridement Note Debridement Note Wound debrided: elbow wound Laterality: Left Type of Debridement: Excisional debridement Anesthesia Used: 5% Lidocaine Gel Depth: Down to and including healthy tissue and in the subcutaneous layer Percentage of wound debrided: 100 Instrument Used: - (1 mm curette) Tissue Removed: Non viable tissue and slough Severity: Fat Layer Exposed Amount of bleeding with debridement: Mild Bleeding Controlled with: Pressure and Compression and gauze Patient tolerated procedure: Patient tolerated procedure well Post-Debridement Measurements and Additional Note: Post-Debridement Measurements/Treatment - Nurse 1 - General Ulcer Assessment Start: 02/23/22 13:45 Freq: Status: Active Protocol: TARYN Activity Type Activity Date Activity User E-sign Co-sign Detail Recorded Client Recorded Date Recorded By Document 02/23/22 13:49 DL [id number] 02/23/22 14:00 DL Document 03/02/22 11:05 AK [id number] 03/02/22 11:08 AK Document 03/09/22 10:43 KR [id number] 03/09/22 10:45 KR 02/23/22 03/02/22 03/09/22 13:49 11:05 10:43 - Today's Visit Information Type of service Follow-up Visit Follow-up Visit Follow-up Visit (Physician/SHOW GIRL (Physician/SHOW GIRL (Physician/SHOW GIRL ) ) ) Arrival Mode Wheelchair Ambulatory Wheelchair Transfer Assistance None Patient Identification Verified (Name & Yes Yes Yes ) Patient Requires Transmission-Based No No Precautions Safety Precautions NA Finger Stick Blood Sugar(mg/dl) (if not checked indicated): Blood Sugar Stated by Patient Vital Signs Temperature (97.8 F-99.1 F) 97.5 F L 97.8 F 97.4 F L Temperature Source Temporal Temporal Temporal Pulse Rate (60-100) 81 78 74 Pulse Location Monitor Monitor Monitor Respiratory Rate (12-18) 18 Respiratory rate source Observation Blood Pressure (90/60-120/80) 96/56 L 111/58 L 117/64 Blood Pressure Mean (mm Hg) 69 75 81 Source Monitor Monitor Position Sitting Blood Pressure Location Right Arm History Since Last Visit- (Skip if this is Patient's initial visit) Have you changed medications since your No No No last visit? Any new allergies or adverse reactions No No No Had a fall/change in ADL's that may No No No increase risk of falls Signs or symptoms of abuse and/or No No No neglect since last visit Have you been in the hospital since your No No No last visit? Has dressing in place as prescribed Yes Yes Yes Has compression in place as prescribed N/A N/A N/A Has offloadiing in place as prescribed N/A N/A N/A Experienced any changes in pain level or No No No management Left Footwear Regular Shoe Regular Shoe Right Footwear Regular Shoe Regular Shoe Pain Scale: 0-10 Numeric Is Patient Pain Free? Yes Yes Yes WC - Nurse 1 - General Ulcer Measurement Start: 02/23/22 13:45 Freq: Status: Active Protocol: Activity Type Activity Date Activity User E-sign Co-sign Detail Recorded Client Recorded Date Recorded By Document 02/23/22 13:49 DL [id number] 02/23/22 14:00 DL Document 03/02/22 11:05 AK [id number] 03/02/22 11:08 AK Document 03/09/22 10:43 KR [id number] 03/09/22 10:45 KR 02/23/22 03/02/22 03/09/22 13:49 11:05 10:43 Wound Center Nurse 1 #2 L elbow -Combined with other wound No -Current Size (cm) - Length 0.1 0.5 0.1 -Current Size (cm) - Width 0.1 0.4 0.1 -Current Size (cm) - Depth 0.1 0.1 0.1 -Total Square Cm 0.01 0.20 0.01 -Date of Last Picture (Recall this 03/02/22 field) -Photo Taken Yes Yes -Epithelialization Small 1-33% -Tunneling No -Undermining/Tunneling No -Circular Undermining No -Classification - Thickness Partial Thickness -Change in Wound Grade/Stage No -Exudate Amt Small Small None Present -Exudate Type Sanguineous Serosanguineous -Wound Margin Distinct, Flat & Intact Distinct, Outline Outline Attached Attached -Granulation Amt None Present (0 Small (1-33%) None Present (0 %) %) -Granulation Quality N/A,Red -Slough/Fibrin Yes -Necrosis Amt None Present (0 Medium (34-66%) None Present (0 %) %) -Necrotic Tissue Type Adherent Slough -Structure Exposed N/A N/A -Texture (Mary-wound Skin Appearance) Scarring No Abnormality, No Abnormality, Assessed Assessed -Moisture (Mary-wound Skin Appearance) No Abnormality No Abnormality, No Abnormality, Assessed Assessed -Color (Mary-wound Skin Appearance) No Abnormality No Abnormality, Assessed -Temperature (Mary-wound Skin No Abnormality No Abnormality No Abnormality Appearance) (Pt Warm) (Pt Warm) (Pt Warm) -Tenderness on Palpation (Mary-wound No No No Skin Appearance) -Ulcer Cleansing Rinsed/ Rinsed/ Rinsed/ Irrigated with Irrigated with Irrigated with Saline Saline Saline -Foul Odor after Cleansing No No No -Anesthetic Used 5% Lidocaine 4% Lidocaine 5% Lidocaine Gel Solution Gel #1 right elbow -Combined with other wound No -Current Size (cm) - Length 0.7 0.1 0.1 -Current Size (cm) - Width 0.8 0.1 0.1 -Current Size (cm) - Depth 0.1 0.1 0.1 -Total Square Cm 0.56 0.01 0.01 -Date of Last Picture (Recall this 03/02/22 field) -Photo Taken Yes Yes -Tunneling No -Undermining/Tunneling No -Circular Undermining No -Exudate Amt None Present Small -Exudate Type Serosanguineous -Wound Margin Thickened Distinct, Distinct, Outline Outline Attached Attached -Granulation Amt Large (67-100%) Small (1-33%) -Granulation Quality Mcconnell Mcconnell -Slough/Fibrin Yes -Necrosis Amt None Present (0 Small (1-33%) %) -Necrotic Tissue Type Adherent Slough -Structure Exposed N/A N/A -Texture (Mary-wound Skin Appearance) Scarring No Abnormality, Assessed, Assessed Scarring -Moisture (Mary-wound Skin Appearance) Assessed No Abnormality, Assessed Assessed -Color (Mary-wound Skin Appearance) No Abnormality No Abnormality, Assessed -Temperature (Mary-wound Skin No Abnormality No Abnormality No Abnormality Appearance) (Pt Warm) (Pt Warm) (Pt Warm) -Tenderness on Palpation (Mary-wound No No Skin Appearance) -Ulcer Cleansing Rinsed/ Rinsed/ Rinsed/ Irrigated with Irrigated with Irrigated with Saline Saline Saline -Foul Odor after Cleansing No No No -Anesthetic Used 5% Lidocaine 4% Lidocaine 5% Lidocaine Gel Solution Gel WC - Nurse 2 - General Ulcer CM Notes Start: 02/23/22 13:45 Freq: Status: Active Protocol: Activity Type Activity Date Activity User E-sign Co-sign Detail Recorded Client Recorded Date Recorded By Document 02/23/22 14:34 [id number] 02/23/22 14:42 Edit Result 02/23/22 14:34 JF (1) [id number] 02/23/22 15:08 Document 03/02/22 11:33 [id number] 03/02/22 11:36 (1) #2 L elbow - Time => 15:07 - Correct Patient No => Yes - Correct Side, Site, Position No => Yes - Correct Procedure No => Yes - Procedure Performed No => Yes - Type of Procedure => Incision & => Drainage - Post Debridement (cm) - Length => 1.0 - Post Debridement (cm) - Width => 0.8 - Post Debridement (cm) - Depth => 0.8 - Total Square (Post) (cm) => 0.80 - Area of Debridement (cm) - Length => 1.0 - Area of Debridement (cm) - Width => 0.8 - Total Square (Area) (cm) => 0.80 - Tunneling => No - Undermining/Tunneling => No - Circular Undermining => No - Wound/Ulcer Outcome => Not Healed - Ulcer Cleansing => Rinsed/Irrigated => with Saline - Foul Odor after Cleansing => No - Bioengineered Tissue => No - Bleeding Controlled with => Pressure - Treatment Response => Procedure => Tolerated Well - Offloading => No - Debridement - Subq, 1st 20sq cm => No - I&D / Paring / Biopsy => I&D abscess - => single or simple 02/23/22 06 14:34 11:33 Wound Center Nurse 2 #2 L elbow -Time 15:07 11:33 -Correct Patient Yes Yes -Correct Side, Site, Position Yes Yes -Correct Procedure Yes Yes -Procedure Performed Yes Yes -Type of Procedure Incision & Debridement Drainage -Clinical Debridement Subcutaneous -Tissue Removed Subcutaneous -Post Debridement (cm) - Length 1.0 0.8 -Post Debridement (cm) - Width 0.8 0.7 -Post Debridement (cm) - Depth 0.8 0.3 -Total Square (Post) (cm) 0.80 0.56 -Area of Debridement (cm) - Length 1.0 0.8 -Area of Debridement (cm) - Width 0.8 0.7 -Total Square (Area) (cm) 0.80 0.56 -Tunneling No No -Undermining/Tunneling No No -Circular Undermining No No -Wound/Ulcer Outcome Not Healed Not Healed -Ulcer Cleansing Rinsed/ Rinsed/ Irrigated with Irrigated with Saline Saline -Foul Odor after Cleansing No No -Bioengineered Tissue No No -Bleeding Controlled with Pressure Pressure -Treatment Response Procedure Procedure Tolerated Well Tolerated Well -Offloading No No -Debridement - Subq, 1st 20sq cm No No -I&D / Paring / Biopsy I&D abscess - single or simple #1 right elbow -Time 14:35 11:34 -Correct Patient Yes Yes -Correct Side, Site, Position Yes Yes -Correct Procedure Yes Yes -Procedure Performed Yes Yes -Type of Procedure Debridement Debridement -Clinical Debridement Subcutaneous Subcutaneous -Tissue Removed Subcutaneous Subcutaneous -Post Debridement (cm) - Length 1.7 0.5 -Post Debridement (cm) - Width 1.0 0.4 -Post Debridement (cm) - Depth 0.1 0.1 -Total Square (Post) (cm) 1.70 0.20 -Area of Debridement (cm) - Length 1.7 0.5 -Area of Debridement (cm) - Width 1.0 0.4 -Total Square (Area) (cm) 1.70 0.20 -Tunneling No No -Undermining/Tunneling No No -Circular Undermining No No -Wound/Ulcer Outcome Not Healed Not Healed -Ulcer Cleansing Rinsed/ Rinsed/ Irrigated with Irrigated with Saline Saline -Foul Odor after Cleansing No No -Bioengineered Tissue No No -Bleeding Controlled with Pressure Pressure -Treatment Response Procedure Procedure Tolerated Well Tolerated Well -Offloading No No -Debridement - Subq, 1st 20sq cm Yes Yes Pain Scale: 0-10 Numeric Is Patient Pain Free? Yes Yes - Nurse 3 - General Ulcer D/C NN Start: 02/23/22 13:45 Freq: Status: Active Protocol: Activity Type Activity Date Activity User E-sign Co-sign Detail Recorded Client Recorded Date Recorded By Document 02/23/22 15:10 [id number] 02/23/22 15:11 JF Document 03/02/22 11:41 DL [id number] 03/02/22 11:43 DL 02/23/22 03/02/22 15:10 11:41 Wound Care Nurse 3 #2 L elbow -Ulcer Cleansing Rinsed/ Rinsed/ Irrigated with Irrigated with Saline Saline -Foul Odor after Cleansing No No -Primary Dressing Applied Aquacel AG 2x2 NonAdherent Contact Layer -Other Dressing hydrogel -Primary Dressing Covered/Secured with Dry Gauze, Dry Gauze & Secured with Roll Gauze, Tape Secured with Tape -Aquacel AG 2x2 1 #1 right elbow -Ulcer Cleansing Rinsed/ Rinsed/ Irrigated with Irrigated with Saline Saline -Foul Odor after Cleansing No No -Primary Dressing Applied C Hydrogel ($) C Hydrogel ($) -Other Dressing hydrogel -Primary Dressing Covered/Secured with Dry Gauze, Dry Gauze & Secured with Roll Gauze, Tape Secured with Tape Treatment Response Procedure Tolerated Well Pain Scale: 0-10 Numeric Is Patient Pain Free? 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 Wound care - Left elbow place collagen hydrogel covered with adaptic and topped with gauze or a band-aid daily. May wash the wound with soap and water before changing the dressing. His is doing a nice job on his dressing changes. Right elbow is healed. Instructed to massage lotion into the scarring 1-2 times a day to help soften the scarring. Wound culture obtained 02/23/22 which was positive for Staphylococcus aureus and he completed Doxycycline. Encouraged low carbohydrate diet and high protein intake to help with wound healing. He has switched his PCP to Dr. Red. They have never heard anything about PT, so we will order PT for evaluation and treatment for balance, ROM and strengthening. Follow up two weeks. Call or come in sooner if have any questions or concerns.
== END 2022-03-12 23:59 | disposition home or self-care (01) ==
LOC: WC 10:45
PROVIDERS: PCP Family Medicine; Visit Provider Nurse Practitioner Family
DX: S51.002A Unspecified open wound of left elbow, initial encounter (principal); E11.9 Type 2 diabetes mellitus without complications; L02.414 Cutaneous abscess of left upper limb; W19.XXXA Unspecified fall, initial encounter; M25.422 Effusion, left elbow; Z79.01 Long term (current) use of anticoagulants; S50.02XA Contusion of left elbow, initial encounter; M25.522 Pain in left elbow
CPT/HCPCS: 10060; 11042; 87070; 87075; 87077; 87186; 87205

== ENCOUNTER 2022-03-11 11:00 | Outpatient (RCR) | payer MEDICARE, BC, SELFPAY ==
[2021-11-11 08:59] VITALS: BMI 24.2
[2022-03-11 11:46] LABS: International Normalized Ratio 2.5; Prothrombin Time (Protime)PT. 26.7 SECONDS (11.7-14.9)
== END 2022-03-11 23:59 | disposition home or self-care (01) ==
LOC: LAB 11:00
PROVIDERS: Family Provider Family Medicine; PCP Internal Medicine; Referring Provider Internal Medicine Cardiovascular Disease; Visit Provider Internal Medicine Cardiovascular Disease
DX: I48.11 Longstanding persistent atrial fibrillation (principal); Z79.01 Long term (current) use of anticoagulants
CPT/HCPCS: 36415; 85610

== ENCOUNTER 2022-03-23 10:36 | Outpatient (RCR) | payer MEDICARE, BC, SELFPAY ==
[2022-03-13 00:42] VITALS: BP 117/64; PULSE 74; RESP 18; TEMP 36.3
[2022-03-23 10:46] VITALS: BP 93/42; PULSE 79; TEMP 36.1
--- NOTE | 2022-03-23 11:09 | PCM.WC.PN ---
History of Present Illness Date of Service: 03/23/22 Chief Complaint: Right elbow wound History of Wound: Patient fell and hit his right elbow and had a skin tear. He went to [facility] in [place] and they told him top place antibiotic ointment on the wound daily and referred him to the wound center. Patient's states that he has had 3 falls in the past month, which not normal. She states that she has told his PCP about this. This most recent fall was 01/17/22 where he fell at home and bumped his elbow. He fell in a parking lot and hit his head on 01/05/22. Patient has a history of diabetes, Afib and stroke. Patient developed a painful bruised area on left elbow last week. Patient's states that this is the elbow that he hit the first time he fell and went to the ED and they did nothing about. She states she noticed it was bruised, painful to touch and soft 2 days ago. The patient states that he is not feeling well over the past couple days but denies fever, chills, nausea or vomiting. I&D of left elbow performed 02/23/22. Wound culture obtained on 02/23/22 which was positive for Staphylococcus aureus. He was started on Doxycycline. Wound care - Right elbow ulcer remains healed. The left elbow wound is healed today. Patient denies any fever, chills, nausea or vomiting. He states his appetite is good. Progress of Wound: Left elbow wound is healed today. Objective Data Objective Data Vital Signs: Vital Signs Temp Pulse Resp BP 97.0 F L 79 18 93/42 L 03/23/22 10:46 03/23/22 10:46 03/13/22 00:42 03/23/22 10:46 Charges/Coding Visit Charges Office Visits / Consults: 44890 OV L3 Est Physical Exam Const alert and no apparent distress General Appearance: cooperative HEENT normocephalic Resp normal respiratory effort and clear to auscultation bilaterally Cardio regular rate and regular rhythm GI Palpation: soft; Negative for tender Extremity normal capillary refill Extremity Narrative: Left and right radial pulse present, no edema present. Skin Wound Narrative: Right lateral elbow wound is healed. The left elbow wound is healed today. Neuro Sensorium / Orientation: awake and alert Psych Appearance: well kempt Debridement Note Debridement Note No debridement was completed: No debridement was completed today Post-Debridement Measurements and Additional Note: Post-Debridement Measurements/Treatment KAM - Nurse 1 - General Ulcer Assessment Start: 03/23/22 10:46 Freq: Status: Active Protocol: TARYN Activity Type Activity Date Activity User E-sign Co-sign Detail Recorded Client Recorded Date Recorded By Document 03/23/22 10:46 ELEAZAR [id number] 03/23/22 10:49 ELEAZAR 03/23/22 10:46 WC - Today's Visit Information Type of service Follow-up Visit (Physician/REGULATORY AND COMPLIANCE TECHNICIAN ) Arrival Mode Wheelchair Patient Identification Verified (Name & Yes ) Vital Signs Temperature (97.8 F-99.1 F) 97.0 F L Temperature Source Temporal Pulse Rate (60-100) 79 Pulse Location Monitor Blood Pressure (90/60-120/80) 93/42 L Blood Pressure Mean (mm Hg) 59 Source Monitor Position Sitting Blood Pressure Location Right Arm History Since Last Visit- (Skip if this is Patient's initial visit) Have you changed medications since your No last visit? Any new allergies or adverse reactions No Had a fall/change in ADL's that may No increase risk of falls Signs or symptoms of abuse and/or No neglect since last visit Have you been in the hospital since your No last visit? Has dressing in place as prescribed Yes Has compression in place as prescribed N/A Has offloadiing in place as prescribed N/A Experienced any changes in pain level or No management Left Footwear Regular Shoe Right Footwear Regular Shoe Pain Scale: 0-10 Numeric Is Patient Pain Free? Yes - Nurse 1 - General Ulcer Measurement Start: 03/23/22 10:46 Freq: Status: Active Protocol: Activity Type Activity Date Activity User E-sign Co-sign Detail Recorded Client Recorded Date Recorded By Document 03/23/22 10:46 ELEAZAR [id number] 03/23/22 10:49 ELEAZAR 03/23/22 10:46 Wound Center Nurse 1 #2 L elbow -Current Size (cm) - Length 0.1 -Current Size (cm) - Width 0.1 -Current Size (cm) - Depth 0.1 -Total Square Cm 0.01 -Exudate Amt None Present -Wound Margin Distinct, Outline Attached -Necrosis Amt None Present (0 %) -Texture (Mary-wound Skin Appearance) Assessed, Scarring -Moisture (Mary-wound Skin Appearance) No Abnormality, Assessed -Color (Mary-wound Skin Appearance) No Abnormality, Assessed -Temperature (Mary-wound Skin No Abnormality Appearance) (Pt Warm) -Tenderness on Palpation (Mary-wound No Skin Appearance) -Ulcer Cleansing Rinsed/ Irrigated with Saline -Foul Odor after Cleansing No WC - Nurse 2 - General Ulcer CM Notes Start: 03/23/22 10:46 Freq: Status: Active Protocol: Activity Type Activity Date Activity User E-sign Co-sign Detail Recorded Client Recorded Date Recorded By Document 03/23/22 11:01 [id number] 03/23/22 11:02 03/23/22 11:01 Wound Center Nurse 2 -Correct Patient No -Correct Side, Site, Position No -Correct Procedure No -Procedure Performed No -Post Debridement (cm) - Length 0 -Post Debridement (cm) - Width 0 -Post Debridement (cm) - Depth 0 -Total Square (Post) (cm) 0 -Area of Debridement (cm) - Length 0 -Area of Debridement (cm) - Width 0 -Total Square (Area) (cm) 0 -Wound/Ulcer Outcome Healed- Epithelialized Pain Scale: 0-10 Numeric Is Patient Pain Free? Yes - Nurse 3 - General Ulcer D/C NN Start: 03/23/22 10:46 Freq: Status: Active Protocol: Activity Type Activity Date Activity User E-sign Co-sign Detail Recorded Client Recorded Date Recorded By Document 03/23/22 11:04 [id number] 03/23/22 11:04 03/23/22 11:04 Is Patient Pain Free? 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 Wound care - Left elbow is healed today. The right elbow remains healed. Instructed to massage lotion into the scarring 1-2 times a day to help soften the scarring. Wound culture obtained 02/23/22 which was positive for Staphylococcus aureus and he completed Doxycycline. Encouraged low carbohydrate diet and high protein intake to help with wound healing. He has switched his PCP to Dr. Red. Follow up as needed. .
== END 2022-03-23 15:02 | disposition home or self-care (01) ==
LOC: WC 10:36
PROVIDERS: PCP Internal Medicine; Visit Provider Nurse Practitioner Family
DX: S50.02XA Contusion of left elbow, initial encounter (principal); E11.9 Type 2 diabetes mellitus without complications; M25.522 Pain in left elbow; L02.414 Cutaneous abscess of left upper limb; Z79.01 Long term (current) use of anticoagulants; R29.6 Repeated falls
CPT/HCPCS: 99212; G0463

== ENCOUNTER 2022-04-21 12:15 | Outpatient (RCR) | payer MEDICARE, BC, SELFPAY ==
[2022-03-13 06:34] VITALS: BMI 24.2
[2022-04-21 14:01] LABS: International Normalized Ratio 2.5; Prothrombin Time (Protime)PT. 26.3 SECONDS (11.7-14.9)
== END 2022-04-21 18:00 | disposition home or self-care (01) ==
LOC: LAB 12:15
PROVIDERS: Family Provider Family Medicine; PCP Internal Medicine; Referring Provider Internal Medicine Cardiovascular Disease; Visit Provider Internal Medicine Cardiovascular Disease
DX: I48.11 Longstanding persistent atrial fibrillation (principal); Z79.01 Long term (current) use of anticoagulants
CPT/HCPCS: 36415; 85610

== ENCOUNTER 2022-05-29 09:31 | Outpatient (RCR) | payer MEDICARE, BC, SELFPAY ==
[2022-05-13 22:19] VITALS: BMI 24.2
[2022-05-29 10:36] LABS: International Normalized Ratio 2.8; Prothrombin Time (Protime)PT. 28.8 SECONDS (11.7-14.9)
== END 2022-05-29 18:00 | disposition home or self-care (01) ==
LOC: LAB 09:31
PROVIDERS: Family Provider Family Medicine; PCP Internal Medicine; Referring Provider Internal Medicine Cardiovascular Disease; Visit Provider Internal Medicine Cardiovascular Disease
DX: I48.11 Longstanding persistent atrial fibrillation (principal); Z79.01 Long term (current) use of anticoagulants
CPT/HCPCS: 36415; 85610

== ENCOUNTER → 2022-05-29 | Outpatient (CLI) | payer MEDICARE, BC, SELFPAY ==
--- NOTE | 2022-05-29 08:08 | MRI_ITS ---
STUDY: MRI BRAIN WITH AND WITHOUT CONTRAST REASON FOR EXAM: Male, 86 years old. Suspected L frontal meningioma w/ vasogenic edema- abn CT brain TECHNIQUE: Standardized multiplanar fat and water weighted pulse sequences were obtained. IV 13ml Clariscan was administered for the contrast portion of the examination. COMPARISON: Head CT dated JANUARY 05, 2022 and July 23, 2019 FINDINGS: Reidentification of the moderate size 5.18 x 4.39 cm left frontal lobe extra-axial mixed cystic and solid heterogeneous mass, demonstrating avid enhancement on the postcontrast study and with a dural attachment at the lateral border of the lesion. This is most consistent with a degenerated meningioma some petechial microvascular hemorrhage is present within the lesion. Moderate surrounding vasogenic edema is is present in the left frontal and anterior aspect of the left parietal lobe. There is also mild mass effect on the surrounding parenchyma. Mass effect on the superior aspect of the left lateral ventricle results in effacement and rightward midline shift of 4.2 mm. No additional intra-axial or extra-axial lesions are present in the bilateral cerebral hemispheres or in the posterior fossa. There is mild cerebral atrophy with widening of the extra-axial spaces and ventricular dilatation. There are a limited number of small white matter hyperintensities, distributed throughout the deep white matter tracts of the cerebral hemispheres, consistent with mild chronic white matter ischemic changes. There is no evidence for recent intracranial ischemia or other cause of cytotoxic edema on diffusion weighted imaging (DWI). Normal bilateral basal ganglia. Normal thalami. There is no extra-axial fluid accumulation. Normal flow voids within the major intracranial circulation suggesting patency by spin echo criteria. Normal venous enhancement. Normal sella turcica, pituitary gland, infundibular stalk, optic chiasm and hypothalamus. Normal tectal plate and pineal gland. Normal midbrain, iron and medulla. Normal cerebellum. Normal basal cisterns. Normal bilateral temporal bones. Normal bilateral internal auditory canals. No demonstrated orbital abnormality, within the constraints of a routine brain study. Normal visualized paranasal sinuses. Normal calvarium and skull base. Normal visualized soft tissue structures. Normal visualized upper cervical spine. MRI/Brain W/WO Contrast IMPRESSION: 1. Reidentification of the moderate size 5.18 x 4.39 cm left frontal lobe extra-axial mixed cystic and solid heterogeneous mass, demonstrating avid enhancement on the postcontrast study and with a dural attachment at the lateral border of the lesion. This is most consistent with a degenerated meningioma some petechial microvascular hemorrhage is present within the lesion. 2. Moderate surrounding vasogenic edema is is present in the left frontal and anterior aspect of the left parietal lobe. There is also mild mass effect on the surrounding parenchyma. 3. Mass effect on the superior aspect of the left lateral ventricle results in effacement and rightward midline shift of 4.2 mm. No additional intra-axial or extra-axial lesions are present in the bilateral cerebral hemispheres or in the posterior fossa. Electronically Signed: Farhat Boyer MD at 10:41 EDT ,
[2022-05-29 08:50] LABS: CREATININE FINGERSTICK < 0.9 mg/dL (0.70-1.30); EGFR FINGERSTICK > 60.0000 mL/min (>60)
[2022-05-29 10:25] LABS: Hemoglobin 14.1 g/dL (13.0-16.5); Mean Corp Hgb Conc 32.8 g/dL (32-36); Mean Corpuscular Hgb 30.8 pg (27.0-32.0); Mean Corpuscular Volume 93.9 fL (80-94); Platelet Count 151 K/mm3 (150-450); RBC Distribution Width CV 13.3 % (11.6-14.6); RBC Distribution Width SD 45.7 fl (35.1-43.9); Red Blood Count 4.58 M/mm3 (4.6-6.2)
[2022-05-29 10:53] LABS: Vitamin B12 339 pg/mL (211-911)
[2022-05-29 11:51] LABS: ALB/GLOB Ratio 1.2 RATIO (0.9-2.4); AST(SGOT) 16 U/L (15-37); Alanine Aminotransfer ALT/SGPT 23 U/L (16-61); Albumin, Serum 3.8 g/dL (3.2-5.0); Alkaline Phosphatase 66 U/L (45-117); Anion Gap 6 (5-15); BUN 13 mg/dL (7-18); BUN/Creat Ratio 16.3 RATIO (10-20); Calcium,Total 9.4 mg/dL (8.5-10.1); Chloride 107 mmol/L (98-107); EST Glomerular Filtration Rate 98 mL/min (>60); Est Glom Filt Rate - Afr Amer 118 mL/min (>60); Globulin 3.3 g/dL (2.2-4.2); Glucose 100 mg/dL (74-106); Potassium 4.1 mmol/L (3.5-5.1); Protein, Total 7.1 g/dL (6.4-8.2); Sodium Level 142 mmol/L (136-145); Thyroid Stim Hormone (TSH) 2.39 uIU/mL (0.358-3.74)
[2022-06-03 11:33] LABS: Vitamin B1, Thiamine 149.9 nmol/L (66.5-200.0)
== END | disposition home or self-care (01) ==
LOC: MRI 08:08
PROVIDERS: PCP Internal Medicine; Referring Provider Psychiatry & Neurology Neurology; Visit Provider Psychiatry & Neurology Neurology
DX: D32.0 Benign neoplasm of cerebral meninges (principal); R26.9 Unspecified abnormalities of gait and mobility; R41.0 Disorientation, unspecified; Z86.73 Personal history of transient ischemic attack (TIA), and cerebral infarction without residual deficits
CPT/HCPCS: 36415; 70553; 80053; 82607; 82746; 84425; 84443; 85027; 85610; A9575

== ENCOUNTER 2022-06-02 11:57 | Outpatient (RCR) | payer MEDICARE, BC, SELFPAY ==
--- NOTE | 2022-08-13 06:57 | HP.PT.NRP ---
SORAIDA PERES was seen in my office for initial evaluation on 06/02/22. The following Plan of Care was established for this patient: Initial Frequency: 2x /Week Initial Duration: 4 Weeks Patient/Client Instruction: Educate patient on: Benefits of Fitness Program Therapeutic Exercise to Include: Strength training, Endurance training, Balance training, Coordination, Agility training, Body mechanics, Postural training, Flexibilty training, Gait and locomotor training, Neuromotor development, Dynamic Lumbar Stabilization, Scapular Strength/Stabilization For the Purpose of:: To improve muscle performance and motor function Functional Training to Include: Gait training This patient was last seen in our office . Pertinent comments regarding their Physical therapy will appear below: Patient has not attended physical therapy in over 30 days- appropriate to be discharged and return to the MD as needed. At this point I will be discontinuing this patient from physical therapy. I would be happy to see this patient again in the future if found appropriate by the physician. Thank you! KIMI HernandesT
== END 2022-06-02 19:00 | disposition home or self-care (01) ==
LOC: PT 11:57
PROVIDERS: PCP Internal Medicine; Referring Provider Psychiatry & Neurology Neurology; Visit Provider Psychiatry & Neurology Neurology
DX: R26.9 Unspecified abnormalities of gait and mobility (principal); D32.0 Benign neoplasm of cerebral meninges; Z86.73 Personal history of transient ischemic attack (TIA), and cerebral infarction without residual deficits

== ENCOUNTER 2022-07-10 11:04 | Outpatient (RCR) | payer MEDICARE, BC, SELFPAY ==
[2022-06-12 19:34] VITALS: BMI 24.2
[2022-07-10 11:33] LABS: Prothrombin Time (Protime)PT. 22.2 SECONDS (11.7-14.9)
== END 2022-07-10 18:00 | disposition home or self-care (01) ==
LOC: LAB 11:04
PROVIDERS: Family Provider Family Medicine; PCP Internal Medicine; Referring Provider Internal Medicine Cardiovascular Disease; Visit Provider Internal Medicine Cardiovascular Disease
DX: I48.11 Longstanding persistent atrial fibrillation (principal); Z79.01 Long term (current) use of anticoagulants
CPT/HCPCS: 36415; 85610

== ENCOUNTER 2022-08-25 11:25 | Outpatient (RCR) | payer MEDICARE, BC, SELFPAY ==
[2022-07-14 09:32] VITALS: BMI 24.2
[2022-08-25 12:02] LABS: International Normalized Ratio 2.1; Prothrombin Time (Protime)PT. 23.2 SECONDS (11.7-14.9)
== END 2022-08-25 18:00 | disposition home or self-care (01) ==
LOC: LAB 11:25
PROVIDERS: Family Provider Family Medicine; PCP Internal Medicine; Referring Provider Internal Medicine Cardiovascular Disease; Visit Provider Internal Medicine Cardiovascular Disease
DX: I48.11 Longstanding persistent atrial fibrillation (principal); Z79.01 Long term (current) use of anticoagulants
CPT/HCPCS: 36415; 85610

== ENCOUNTER 2022-09-30 12:15 | Outpatient (RCR) | payer MEDICARE, BC, SELFPAY ==
[2022-09-12 22:37] VITALS: BMI 24.2
[2022-09-30 14:21] LABS: International Normalized Ratio 2.2; Prothrombin Time (Protime)PT. 23.8 SECONDS (11.7-14.9)
== END 2022-09-30 13:00 | disposition home or self-care (01) ==
LOC: LAB 12:15
PROVIDERS: Family Provider Family Medicine; PCP Internal Medicine; Referring Provider Internal Medicine Cardiovascular Disease; Visit Provider Internal Medicine Cardiovascular Disease
DX: I48.11 Longstanding persistent atrial fibrillation (principal); Z79.01 Long term (current) use of anticoagulants
CPT/HCPCS: 36415; 85610

== ENCOUNTER 2022-11-10 12:38 | Outpatient (RCR) | payer MEDICARE, BC, SELFPAY ==
[2022-10-14 07:45] VITALS: BMI 24.2
[2022-11-10 13:40] LABS: International Normalized Ratio 2.5; Prothrombin Time (Protime)PT. 26.7 SECONDS (11.7-14.9)
== END 2022-11-10 18:00 | disposition home or self-care (01) ==
LOC: LAB 12:38
PROVIDERS: Family Provider Family Medicine; PCP Internal Medicine; Referring Provider Internal Medicine Cardiovascular Disease; Visit Provider Internal Medicine Cardiovascular Disease
DX: I48.11 Longstanding persistent atrial fibrillation (principal); Z79.01 Long term (current) use of anticoagulants
CPT/HCPCS: 36415; 85610

== ENCOUNTER 2022-12-07 11:24 | Outpatient (RCR) | payer MEDICARE, BC, SELFPAY ==
[2022-11-10 19:45] VITALS: BMI 24.2
[2022-12-07 12:04] LABS: International Normalized Ratio 3.2; Prothrombin Time (Protime)PT. 32.2 SECONDS (11.7-14.9)
== END 2022-12-11 21:18 | disposition home or self-care (01) ==
LOC: LAB 11:24
PROVIDERS: Nurse Practitioner Family; Family Provider Family Medicine; PCP Internal Medicine; Referring Provider Internal Medicine Cardiovascular Disease; Visit Provider Internal Medicine Cardiovascular Disease
DX: I48.11 Longstanding persistent atrial fibrillation (principal); Z79.01 Long term (current) use of anticoagulants
CPT/HCPCS: 36415; 85610

== ENCOUNTER 2022-12-30 11:38 | Outpatient (RCR) | payer MEDICARE, BC, SELFPAY ==
[2022-12-11 21:18] VITALS: BMI 24.2
[2022-12-30 15:52] LABS: International Normalized Ratio 2.6; Prothrombin Time (Protime)PT. 27.4 SECONDS (11.7-14.9)
== END 2023-01-10 05:18 | disposition home or self-care (01) ==
LOC: MTLAB 11:38
PROVIDERS: Family Provider Family Medicine; PCP Internal Medicine; Referring Provider Internal Medicine Cardiovascular Disease; Visit Provider Internal Medicine Cardiovascular Disease
DX: I48.11 Longstanding persistent atrial fibrillation (principal); Z79.01 Long term (current) use of anticoagulants
CPT/HCPCS: 36415; 85610

== ENCOUNTER 2023-03-01 13:58 | Outpatient (RCR) | payer MEDICARE, BC, SELFPAY ==
[2023-01-10 05:18] VITALS: BMI 24.2
[2023-03-01 14:42] LABS: International Normalized Ratio 2.7; Prothrombin Time (Protime)PT. 28.6 SECONDS (11.7-14.9)
== END 2023-03-01 18:00 | disposition home or self-care (01) ==
LOC: LAB 13:58
PROVIDERS: Family Provider Family Medicine; PCP Internal Medicine; Referring Provider Internal Medicine Cardiovascular Disease; Visit Provider Internal Medicine Cardiovascular Disease
DX: I48.11 Longstanding persistent atrial fibrillation (principal); Z79.01 Long term (current) use of anticoagulants
CPT/HCPCS: 36415; 85610

== ENCOUNTER 2023-04-20 12:25 | Outpatient (RCR) | payer MEDICARE, BC, SELFPAY ==
[2023-03-12 20:53] VITALS: BMI 24.2
[2023-04-20 14:29] LABS: International Normalized Ratio 2.7; Prothrombin Time (Protime)PT. 28.6 SECONDS (11.7-14.9)
== END 2023-04-20 18:00 | disposition home or self-care (01) ==
LOC: LAB 12:25
PROVIDERS: Family Provider Family Medicine; PCP Internal Medicine; Referring Provider Nurse Practitioner Family; Visit Provider Nurse Practitioner Family
DX: I48.11 Longstanding persistent atrial fibrillation (principal); Z79.01 Long term (current) use of anticoagulants
CPT/HCPCS: 36415; 85610

== ENCOUNTER → 2023-05-10 | Outpatient (CLI) | payer MEDICARE, BC, SELFPAY ==
[2023-05-10 15:06] LABS: Bacteria 0 SEEN /hpf (None Seen); Mucous, Urine 0 SEEN /hpf (<or=2+); Red Blood Cells-Urine 0 SEEN /hpf (0-5); White Blood Cells 0 SEEN /hpf (0-5)
[2023-05-10 15:08] LABS: Absolute Lymphocyte Count 1.08 X10^3/uL (0.83-4.51); Absolute Neutrophil Count 4.5 X10^3/uL (2.0-7.7); Basophil# 0.06 X10^3/uL; Basophil% 0.9 % (0-1); Eosinophil# 0.25 X10^3/uL; Eosinophils% 3.9 % (0-5); Hematocrit 41.9 % (40-54); Hemoglobin 13.6 g/dL (13.0-16.5); Lymphocyte # 1.08 X10^3/ul (0.83-4.51); Lymphocyte % 16.8 % (19-41); Mean Corp Hgb Conc 32.5 g/dL (32-36); Mean Corpuscular Hgb 31.2 pg (27.0-32.0); Mean Corpuscular Volume 96.1 fL (80-94); Mean Platelet Vol. 10.8 fl (6.2-12.0); Monocyte# 0.49 X10^3/uL; Monocyte% 7.6 % (0-10); NRBC Flagged by Analyzer 0 % (0-5); Neutrophil # 4.49 X10^3/uL (2.7-7.7); Neutrophil % 70.2 % (47-70); Platelet Count 245 K/mm3 (150-450); RBC Distribution Width CV 12.9 % (11.6-14.6); RBC Distribution Width SD 45.5 fl (35.1-43.9); Red Blood Count 4.36 M/mm3 (4.6-6.2); White Blood Count 6.4 K/mm3 (4.4-11.0)
[2023-05-10 15:25] LABS: Color, Urine Yellow (Yellow); Glucose, Dipstick Normal (Normal); Ketone-Dipstick Negative (Negative); Leukocyte Esterase-Dipstick Negative /ul (Negative); Nitrite-Dipstick Negative (Negative); Occult Blood-Urine Negative /ul (Negative); Protein-Dipstick Negative (Negative); Urine Bilirubin Dipstick Negative (Negative); Urine Clarity Sl. Cloudy (Clear); Urine Urobilinogen Normal (Normal)
[2023-05-10 15:52] LABS: ALB/GLOB Ratio 0.9 RATIO (0.9-2.4); AST(SGOT) 18 U/L (15-37); Alanine Aminotransfer ALT/SGPT 24 U/L (16-61); Albumin, Serum 3.2 g/dL (3.2-5.0); Alkaline Phosphatase 77 U/L (45-117); Anion Gap 4 (5-15); BUN 15 mg/dL (7-18); BUN/Creat Ratio 23.5 RATIO (10-20); Calcium,Total 8.9 mg/dL (8.5-10.1); Chloride 106 mmol/L (98-107); Creatinine, Serum 0.64 mg/dL (0.70-1.30); EST Glomerular Filtration Rate 126 mL/min (>60); Est Glom Filt Rate - Afr Amer 152 mL/min (>60); Free T3 1.7 pg/mL (2.18-3.98); Globulin 3.6 g/dL (2.2-4.2); Glucose 126 mg/dL (74-106); Potassium 3.5 mmol/L (3.5-5.1); Protein, Total 6.8 g/dL (6.4-8.2); Sodium Level 140 mmol/L (136-145); T4 Free Direct 0.91 ng/dL (0.76-1.46); Thyroid Stim Hormone (TSH) 2.36 uIU/mL (0.358-3.74)
[2023-05-10 16:33] LABS: Amorphous Sediment 1+ PHOS; Squamous Epithelial Cells - UA 0-5 SEEN /hpf (0-5)
== END | disposition home or self-care (01) ==
LOC: LAB 14:27
PROVIDERS: PCP Internal Medicine; Referring Provider Internal Medicine; Visit Provider Internal Medicine
DX: C67.9 Malignant neoplasm of bladder, unspecified (principal); I48.11 Longstanding persistent atrial fibrillation; D32.0 Benign neoplasm of cerebral meninges; E11.9 Type 2 diabetes mellitus without complications; I10 Essential (primary) hypertension; Z79.01 Long term (current) use of anticoagulants; R78.5 Finding of other psychotropic drug in blood; R09.82 Postnasal drip; R26.89 Other abnormalities of gait and mobility; E78.5 Hyperlipidemia, unspecified; E55.9 Vitamin D deficiency, unspecified; N40.0 Benign prostatic hyperplasia without lower urinary tract symptoms
CPT/HCPCS: 36415; 80053; 81001; 82306; 84153; 84439; 84443; 84481; 85025

== ENCOUNTER 2023-06-22 11:55 | Outpatient (RCR) | payer MEDICARE, BC, SELFPAY ==
[2023-05-13 21:44] VITALS: BMI 24.2
[2023-06-22 12:40] LABS: Prothrombin Time (Protime)PT. 31.2 SECONDS (11.7-14.9)
== END 2023-06-22 18:00 | disposition home or self-care (01) ==
LOC: LAB 11:55
PROVIDERS: Family Provider Family Medicine; PCP Internal Medicine; Referring Provider Nurse Practitioner Family; Visit Provider Nurse Practitioner Family
DX: I48.11 Longstanding persistent atrial fibrillation (principal); Z79.01 Long term (current) use of anticoagulants
CPT/HCPCS: 36415; 85610

== ENCOUNTER 2023-08-14 06:41 | Emergency (ER) | payer MEDICARE, BC, SELFPAY ==
[2023-08-14] VITALS (11 sets, daily range): BP systolic 84–128; BP diastolic 42–68; PULSE 53–125; RESP 13–20; TEMP 36.2–36.6; O2SAT 94–99; BMI 17.0
--- NOTE | 2023-08-14 07:07 | CT_ITS ---
We are attempting to reach an attending provider to discuss findings. An addendum with communication details will be sent when the communication is complete. INDICATION: mental status change EXAMINATION: CT BRAIN - CT Head or Brain W/O Contrast Injection TECHNIQUE: Multiple axial images were obtained of the head with sagittal and coronal reconstructed images. Individualized dose optimization techniques were used for this CT. IV contrast dosage and agent: None. COMPARISON: 05/29/2023 MRI and 01/05/2022 CT. FINDINGS: BRAIN PARENCHYMA: 5.7 x 4.4 cm heterogeneous mass in the left frontal lobe, slightly increased in size as compared to 01/05/2022. Small focal areas of acute hemorrhage within the dependent posterior portion of the mass. Increase in diffuse surrounding sulcal effacement as compared to the prior CT. Stable midline shift to the right of approximately 6 mm. Stable chronic right basal ganglia infarct. CALVARIUM, SKULL BASE, PARANASAL SINUSES AND MASTOID AIR CELLS: No fracture. Mastoid air cells are clear. Visualized paranasal sinuses are unremarkable. ORBITS: The globes, extraocular muscles, optic nerves and retrobulbar fat are unremarkable. CT/Brain/Head without Contrast IMPRESSION: Large left frontal lobe mass likely representing a meningioma with a small amount associated acute hemorrhage. Overall the mass is slightly increased in size as compared to 01/05/2022. Electronically Signed: Radu Donovan DO at 7:41 EST ,
--- NOTE | 2023-08-14 07:07 | EKG12_ITS ---
Test Reason : WEAKNESS Blood Pressure : / mmHG Vent. Rate : 102 BPM Atrial Rate : 000 BPM P-R Int : 000 ms QRS Dur : 134 ms QT Int : 326 ms P-R-T Axes : 000 082 -52 degrees QTc Int : 424 ms Atrial fibrillation with rapid ventricular response Non-specific intra-ventricular conduction block Minimal voltage criteria for LVH, may be normal variant ( Ruth product ) Nonspecific T wave abnormality Abnormal ECG Confirmed by CL AGUILAR, KAMRYN ([id number]), digital editor RG GARY ([id number]) on 08/16/2023 10:09:25 AM Referred By: Confirmed By:KAMRYN SMALLWOOD MD
--- NOTE | 2023-08-14 07:08 | EDS_ITS ---
HPI History of Present Illness Chief Complaint: Weakness Detail of Chief Complaint: Mental status change Informant: patient and spouse/S.O. Narrative Narrative: Patient presents to the emergency department with a mental status change. Pres ents via EMS from home. woke up the patient shaking violently in bed. Patient's states that the shaking may have lasted about 10 minutes. EMS was called. Patient was confused afterwards and was not speaking. Symptoms of now improved and he is responsive per . He has no history of seizure. Has had no falls or head injuries. He went to bed last evening normally. He has not been ill. Patient denies headache or chest pain or abdominal pain. He is on warfarin for history of A-fib. He has had prior stroke and has some remnant left-sided weakness. Patient ambulates on his own. [facility] Medical History (Updated 08/14/23 @ 08:[address] Natalie Velasquez, ) Acute calculous cholecystitis Acute gallstone pancreatitis Arthritis Atrial fibrillation with RVR Bladder cancer Essential hypertension Hearing problem Hemorrhoids History of back problems History of bladder cancer History of cancer History of cataract History stage IV bladder cancer Hyperlipidemia Intermittent urinary incontinence Knee pain emt intermediate (current) use of anticoagulants Longstanding persistent atrial fibrillation Mesenteric ischemia Osteoarthritis Severe sepsis SMA occlusion Stroke/cerebrovascular accident (~07/27/19) Type 2 diabetes mellitus Home Medications cholecalciferol (vitamin D3) 50 mcg (2,000 unit) capsule 50 mcg PO DAILY 05/06/20 [History Last Taken Unknown] bisacodyl 5 mg tablet,delayed release (Dulcolax (bisacodyl)) 5 mg PO QHS 01/27/22 [History Last Taken Unknown] warfarin 5 mg tablet 5 mg PO .COMPLEX #180 tabs 09/18/22 [Rx Last Taken Unknown] diltiazem HCl 120 mg capsule,extended release 24 hr 120 mg PO DAILY #90 caps 09/21/22 [Rx Last Taken Unknown] Allergy/AdvReac Type Severity Reaction Status Date / Time metformin Allergy Severe kidneys Verified 08/14/23 06:57 shut down Family History Mother Cancer Brother Cancer Alcoholism Sister Cancer Arthritis Sister Cancer Brother Myocardial infarction Surgical History History of bladder surgery History of laparoscopic cholecystectomy (~07/20/19) Hx of cholecystectomy Status post small bowel resection (06/12/18) Social History Smoking Status: Former smoker how long ago did patient quit smokin years ago alcohol intake: never details: occasional substance use type: does not use caffeine: No rajesh/anabaptist: Religion seatbelt use: always ROS ROS ED Review of Systems ROS Unobtainable: other Constitutional Constitutional ED: Reports lethargy; Denies chills, fever(s), sweats or weight loss Eyes Eyes: Denies blurry vision, change in vision or diplopia ENT ENT ED: Denies rhinorrhea or sore throat Cardiovascular Cardiovascular: Denies chest pain, orthopnea or racing heartbeat Respiratory/Chest Respiratory/Chest: Denies cough, dyspnea, dyspnea on exertion, orthopnea or sputum Gastrointestinal Gastrointestinal: Denies abdominal pain, diarrhea, nausea or vomiting Genitourinary Genitourinary ED: Denies dysuria, hematuria or urinary frequency Musculoskeletal Musculoskeletal: Denies arthralgias, back pain, myalgias or neck pain Integumentary Denies abscess, Abrasions or rash Neurologic Neurologic: Reports other Details: Confusion, mental status change ; Denies headache(s) or weakness Psychiatric Psychiatric: Reports other; Denies anxiety, depression or suicidal thoughts Endocrine Endocrinology: Denies polydipsia, polyphagia or polyuria Hematologic/Lymphatic Hematologic/Lymphatic: Denies easy bleeding, easy bruising or lymphadenopathy Allergic/Immunologic Allergic/Immunologic ED: Denies mouth swelling, tongue swelling or urticaria EXAM Physical Exam Const Vital Signs: 08/14/23 06:42 08/14/23 07:36 Temperature 97.2 F L Temperature Source Temporal Pulse Rate 125 H Respiratory Rate 20 H Respiratory Effort Normal Respiratory Pattern Normal Blood Pressure 128/61 H Blood Pressure Mean 83 Pulse Ox 96 Positive well nourished and well developed General Appearance ED: well developed and NAD HEENT Reports TM's clear and moist mucous membranes normocephalic and atraumatic; Negative for trauma or tenderness Tympanic Membrane ED: Yes TM's clear Eyes PERRL and EOMs intact bilaterally General Eye ED: Negative for pale conjunctiva or scleral icterus Neck no lymphadenopathy, supple and no JVD General: Negative for tenderness Chest Wall inspection of chest normal and palpation of chest normal Chest: Negative for tenderness Resp normal respiratory effort and clear to auscultation bilaterally Effort and Inspection: Negative for respiratory distress or pain with movement Auscultation: Negative for rhonchi, wheezes or diminished lung sounds Cardio S1 normal heart sound, S2 normal heart sound and no murmurs; Negative for regular rhythm Rate: tachycardic Rhythm: abnormal rhythm Peripheral Pulses: pulses 2+ throughout GI normal to inspection, nondistended, normoactive bowel sounds, soft to palpation, non-tender, non-distended and no masses Back/Spine no CVA tenderness and no thoracic nor lumbar tenderness Extremity normal to inspection General Extremety ED: Negative for edema General Extremity: Negative for edema Neuro oriented x3, CN's II-XII intact bilaterally, no sensory deficits noted and gait normal Sensorium / Orientation: awake, alert, oriented to person, oriented to place and oriented to time Motor Exam: strength 5/5 throughout and strength abnormal Psych mental status grossly normal Skin no rashes or lesions noted and no wounds MDM MDM MDM Narrative Medical decision making narrative: Patient presents to the emergency department with an unresponsive episode and mental status change. awoke to patient shaking. In the differential would be seizure versus intracranial hemorrhage versus stroke which I feel is less likely. Patient does not have history of seizure. Patient on warfarin. Patient with history of prior stroke. Last well-known was last evening before patient went to bed. IV line established on arrival. Patient had a CT scan of the brain that showed a mass in the left frontal lobe which is chronic and might be slightly increased in size. No significant change in mass effect. There was small amount of acute hemorrhage and evidence of old hemorrhage associated with the mass. EKG obtained arrival showed a atrial fibrillation with nonspecific ST changes with a rate of 102 bpm. CBC with differential showed a white count 7.5 with hemoglobin 13 and platelet count of 164. Chemistries unremarkable. Troponin was normal at 8. I discussed results with patient and his and they do not want to be transferred to tertiary care center for evaluation of this meningioma with small amount of acute hemorrhage. They only want comfort measures. Patient apparently has stopped following up with neurology because he did not want to have any intervention. makes medical decision for patient. We will discuss case with hospitalist to evaluate patient for admission. Lab Data Attestation: I reviewed the patient's lab results. Labs: Laboratory Results - last 24 hr 08/14/23 07:03 WBC 7.5 RBC 4.23 L Hgb 13.1 Hct 39.7 L MCV 93.9 MCH 31.0 MCHC 33.0 RDW Std Deviation 45.1 H RDW Coeff of Matteo 13.2 Plt Count 164 MPV 11.3 Immature Gran % (Auto) 0.400 Neut % (Auto) 39.2 L Lymph % (Auto) 49.3 H [place] % (Auto) 8.4 Eos % (Auto) 2.0 Baso % (Auto) 0.7 Absolute Neuts (auto) 2.9 Absolute Lymphs (auto) 3.68 Nucleated RBC % 0 PT 34.1 H INR 3.3 Sodium 143 Potassium 3.5 Chloride 109 H Carbon Dioxide 27.0 Anion Gap 7 BUN 19 H Creatinine 0.87 Estim Creat Clear Calc 51.32 Est GFR (MDRD) Af Amer 107 Est GFR (MDRD) Non-Af 88 BUN/Creatinine Ratio 21.9 H Glucose 146 H Calcium 9.3 Troponin I High Sens 8 Radiography Diagnostic Testing: Clinical Impression(s) from Imaging Studies Brain CT 08/14/23 07:07 IMPRESSION: Large left frontal lobe mass likely representing a meningioma with a small amount associated acute hemorrhage. Overall the mass is slightly increased in size as compared to 01/05/2022. Electronically Signed: Radu Donovan DO at 7:41 EST Reading Location ID and State: [facility] / [place] Tel , Service support , ADDENDUM: 08/14/23752 IMPRESSION: Large left frontal lobe mass likely representing a meningioma with a small amount associated acute hemorrhage. Overall the mass is slightly increased in size as compared to 01/05/2022. N.B. : The above Results were Read Back by Radu Donovan DO to Natalie Velasquez, DO, and understanding confirmed on 08/14/2023 07:46:32 (ET). Electronically Signed: Radu Donovan DO at 7:41 EST , ADDENDUM: 08/14/23 075 IMPRESSION: undefined Chest X-Ray 08/14/23 07:26 IMPRESSION: No evidence of acute cardiopulmonary disease. Electronically Signed: Radu DonovanDO at 7:48 EST , 1 view chest x-ray obtained interpreted by myself as no evidence of acute infiltrate or pneumothorax or acute process. Radiology in agreement. EKG Initial EKG: Attestation: I personally reviewed and interpreted this EKG as follows: Comments: Atrial fibrillation with rate of 102 bpm with left bundle branch block and nonspecific changes. Discharge Plan Triage Chief Complaint: Weakness ED Provider: Natalie Velasquez Dx/Rx/DC Orders Clinical Impression: Meningioma, Altered mental status, Intracranial hemorrhage Prescriptions: No Action cholecalciferol (vitamin D3) 50 mcg (2,000 unit) capsule 50 mcg PO DAILY bisacodyl [Dulcolax (bisacodyl)] 5 mg Tablet,Delayed Release (Dr/Ec) 5 mg PO QHS warfarin 5 mg tablet 5 mg PO .COMPLEX Qty: 180 3RF Protocol: Dose Management Condition: Wednesday Dose/Route: 7.5 mg Instruction: 1.5 x 5 mg tablets Condition: Wednesday Dose/Route: 10 mg Instruction: 2 x 5 mg tablets Condition: Wednesday Dose/Route: 7.5 mg Instruction: 1.5 x 5 mg tablets Condition: Wednesday Dose/Route: 10 mg Instruction: 2 x 5 mg tablets Condition: Dose/Route: 7.5 mg Instruction: 1.5 x 5 mg tablets Condition: Wednesday Dose/Route: 7.5 mg Instruction: 1.5 x 5 mg tablets Condition: Wednesday Dose/Route: 10 mg Instruction: 2 x 5 mg tablets Protocol Text: Adjustment Start Date: Wednesday06/22/23 INR Value: 3.0 INR Date: 06/22/23 Recheck Date: 07/20/23 Rx Instructions: 5 mg orally; 2 tablets (10mg) on Wed, , Wed and 1.5 tablets (7.5 mg) all other days of the week, OR As directed diltiazem HCl 120 mg capsule,extended release 24hr 120 mg PO DAILY Qty: 90 3RF Primary Care Provider: Leeanne Reynaga Referrals: Leeanne Reynaga MD [Primary Care Provider] - Disposition Disposition: Acute Care Hospital [facility]
--- NOTE | 2023-08-14 07:19 | ED.RN ---
pt found to have sl laying onbed. alert and follows nurse with eyes. max x4
[2023-08-14 07:26] LABS: Absolute Lymphocyte Count 3.68 X10^3/uL (0.83-4.51); Absolute Neutrophil Count 2.9 X10^3/uL (2.0-7.7); Basophil# 0.05 X10^3/uL; Basophil% 0.7 % (0-1); Eosinophil# 0.15 X10^3/uL; Hematocrit 39.7 % (40-54); Hemoglobin 13.1 g/dL (13.0-16.5); Lymphocyte # 3.68 X10^3/ul (0.83-4.51); Lymphocyte % 49.3 % (19-41); Mean Corpuscular Volume 93.9 fL (80-94); Mean Platelet Vol. 11.3 fl (6.2-12.0); Monocyte# 0.63 X10^3/uL; Monocyte% 8.4 % (0-10); NRBC Flagged by Analyzer 0 % (0-5); Neutrophil # 2.92 X10^3/uL (2.7-7.7); Neutrophil % 39.2 % (47-70); Platelet Count 164 K/mm3 (150-450); RBC Distribution Width CV 13.2 % (11.6-14.6); RBC Distribution Width SD 45.1 fl (35.1-43.9); Red Blood Count 4.23 M/mm3 (4.6-6.2); White Blood Count 7.5 K/mm3 (4.4-11.0)
--- NOTE | 2023-08-14 07:26 | RAD_ITS ---
INDICATION: weakness EXAMINATION/TECHNIQUE: X-RAY - XR Chest 1 View COMPARISON: 07/23/2019. FINDINGS: LINES/DEVICES: None. LUNGS: No consolidation or evidence of an effusion. No evidence of edema or a pneumothorax. MEDIASTINUM AND CARDIOVASCULAR STRUCTURES: Cardiac silhouette is normal in size and contour. Mediastinum is unremarkable. BONES AND SOFT TISSUES: No acute abnormality. RAD/Chest 1 View (Portable) IMPRESSION: No evidence of acute cardiopulmonary disease. Electronically Signed: Radu Donovan DO at 7:48 EST ,
[2023-08-14] MEDS: 0.9% Normal Saline (1000mL) 1,000 ML 150 ML IV (07:40)
[2023-08-14 07:45] LABS: Anion Gap 7 (5-15); BUN 19 mg/dL (7-18); BUN/Creat Ratio 21.9 RATIO (10-20); Calcium,Total 9.3 mg/dL (8.5-10.1); Chloride 109 mmol/L (98-107); Creatinine, Serum 0.87 mg/dL (0.70-1.30); EST Glomerular Filtration Rate 88 mL/min (>60); Est Glom Filt Rate - Afr Amer 107 mL/min (>60); Estimated Creatinine Clearance 51.32 ml/min; Glucose 146 mg/dL (74-106); Potassium 3.5 mmol/L (3.5-5.1); Sodium Level 143 mmol/L (136-145); Troponin-I HS 8 pg/mL (3.0-78.0)
[2023-08-14 08:16] LABS: International Normalized Ratio 3.3; Prothrombin Time (Protime)PT. 34.1 SECONDS (11.7-14.9)
[2023-08-14 08:19] LABS: Bacteria 0 SEEN /hpf (None Seen); Mucous, Urine 0 SEEN /hpf (<or=2+); Red Blood Cells-Urine 0 SEEN /hpf (0-5); Squamous Epithelial Cells - UA 0 SEEN /hpf (0-5); White Blood Cells 0 SEEN /hpf (0-5)
[2023-08-14 08:26] LABS: Color, Urine Yellow (Yellow); Glucose, Dipstick 50 mg/dl (Normal); Ketone-Dipstick Negative (Negative); Leukocyte Esterase-Dipstick Negative /ul (Negative); Nitrite-Dipstick Negative (Negative); Occult Blood-Urine Negative /ul (Negative); Protein-Dipstick Negative (Negative); Specific Gravity, Urine 1.015 (1.002-1.030); Urine Bilirubin Dipstick Negative (Negative); Urine Clarity Clear (Clear); Urine Urobilinogen Normal (Normal)
--- NOTE | 2023-08-14 08:48 | HP.PCM.HOS_ITS ---
HPI - General HPI Narrative SORAIDA PERES, is a 88 M who presents [facility] Medical History (Updated 08/14/23 @ 08:[address] 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 Longstanding persistent atrial fibrillation Mesenteric ischemia Osteoarthritis Severe sepsis SMA occlusion Stroke/cerebrovascular accident (~07/27/19) Type 2 diabetes mellitus Home Medications cholecalciferol (vitamin D3) 50 mcg (2,000 unit) capsule 50 mcg PO DAILY 05/06/20 [History Last Taken Unknown] bisacodyl 5 mg tablet,delayed release (Dulcolax (bisacodyl)) 5 mg PO QHS 01/27/22 [History Last Taken Unknown] warfarin 5 mg tablet 5 mg PO .COMPLEX #180 tabs 09/18/22 [Rx Last Taken Unknown] diltiazem HCl 120 mg capsule,extended release 24 hr 120 mg PO DAILY #90 caps 09/21/22 [Rx Last Taken Unknown] Allergy/AdvReac Type Severity Reaction Status Date / Time metformin Allergy Severe kidneys Verified 08/14/23 06:57 shut down Family History Mother Cancer Brother Cancer Alcoholism Sister Cancer Arthritis Sister Cancer Brother Myocardial infarction Surgical History History of bladder surgery History of laparoscopic cholecystectomy (~07/20/19) Hx of cholecystectomy Status post small bowel resection (06/12/18) Social History Smoking Status: Former smoker how long ago did patient quit smokin years ago alcohol intake: never details: occasional substance use type: does not use caffeine: No rajesh/faith: Hindu seatbelt use: always Vital Signs Vital Signs Vital Signs: 08/14/23 06:42 08/14/23 07:36 08/14/23 07:42 Temperature 97.2 F L Temperature Source Temporal Pulse Rate 125 H 95 Respiratory Rate 20 H 16 Respiratory Effort Normal Respiratory Pattern Normal Blood Pressure 128/61 H 111/59 L Blood Pressure Mean 83 76 Pulse Ox 96 97 Oxygen Delivery Method Room Air 12/02/23 08:00 Temperature Temperature Source Pulse Rate 83 Respiratory Rate 18 Respiratory Effort Respiratory Pattern Blood Pressure 109/57 L Blood Pressure Mean 74 Pulse Ox 99 Oxygen Delivery Method Room Air Weight Weight: 136 lb 4.8 oz Body Mass Index (BMI) 17.0 Results Lab / Micro Data 08/14/23 07:03 08/14/23 07:03 Labs: Laboratory Results - last 24 hr 08/14/23 07:03: WBC 7.5, RBC 4.23 L, Hgb 13.1, Hct 39.7 L, MCV 93.9, MCH 31.0, MCHC 33.0, RDW Std Deviation 45.1 H, RDW Coeff of Matteo 13.2, Plt Count 164, MPV 11.3, Immature Gran % (Auto) 0.400, Neut % (Auto) 39.2 L, Lymph % (Auto) 49.3 H, [place] % (Auto) 8.4, Eos % (Auto) 2.0, Baso % (Auto) 0.7, Absolute Neuts (auto) 2.9, Absolute Lymphs (auto) 3.68, Nucleated RBC % 0, PT 34.1 H, INR 3.3, Sodium 143, Potassium 3.5, Chloride 109 H, Carbon Dioxide 27.0, Anion Gap 7, BUN 19 H, Creatinine 0.87, Estim Creat Clear Calc 51.32, Est GFR (MDRD) Af Amer 107, Est GFR (MDRD) Non-Af 88, BUN/Creatinine Ratio 21.9 H, Glucose 146 H, Calcium 9.3, Troponin I High Sens 8 08/14/23 08:10: Urine Color Yellow, Urine Clarity Clear, Urine pH 8.0, Ur Specific Novelty 1.015, Urine Protein Negative, Urine Glucose (UA) 50 H, Urine Ketones Negative, Urine Occult Blood Negative, Urine Nitrite Negative, Urine Bilirubin Negative, Urine Urobilinogen Normal, Ur Leukocyte Esterase Negative Imagaing Radiology Impression Brain CT 08/14/23 07:07 IMPRESSION: Large left frontal lobe mass likely representing a meningioma with a small amount associated acute hemorrhage. Overall the mass is slightly increased in size as compared to 01/05/2022. Electronically Signed: Radu Donovan DO at 7:41 EST , ADDENDUM: 08/14/23 0753 IMPRESSION: Large left frontal lobe mass likely representing a meningioma with a small amount associated acute hemorrhage. Overall the mass is slightly increased in size as compared to 01/05/2022. N.B. : The above Results were Read Back by Radu Donovan DO to Natalie Velasquez, DO, and understanding confirmed on 08/14/2023 07:46:32 (ET). Electronically Signed: Radu Donovan DO at 7:41 EST , ADDENDUM: 08/14/23 075 IMPRESSION: undefined Chest X-Ray 08/14/23 07:26 IMPRESSION: No evidence of acute cardiopulmonary disease. Electronically Signed: Radu Donovan DO at 7:48 EST ,
[2023-08-14] MEDS: 0.9% Normal Saline (500mL Bag) 500 ML 999 ML IV (15:41)
--- NOTE | 2023-08-14 16:08 | ED.RN ---
harness tier in at bedside to chante pt. pt family at bedside
== END 2023-08-14 17:45 | disposition hospice, inpatient (51) ==
PROVIDERS: Emergency Provider Emergency Medicine; PCP Internal Medicine; Visit Provider Emergency Medicine
DX: D32.9 Benign neoplasm of meninges, unspecified (principal); I69.354 Hemiplegia and hemiparesis following cerebral infarction affecting left non-dominant side; I48.91 Unspecified atrial fibrillation; I62.9 Nontraumatic intracranial hemorrhage, unspecified; E11.9 Type 2 diabetes mellitus without complications; R41.82 Altered mental status, unspecified; E78.5 Hyperlipidemia, unspecified; R53.1 Weakness; I10 Essential (primary) hypertension; Z87.891 Personal history of nicotine dependence
CPT/HCPCS: 70450; 71045; 80048; 81001; 84484; 85025; 85610; 93005; 96360; 96361; 99285; J7030; A4216